=== PATIENT | female | born 1945 | race Caucasian/White ===

== ENCOUNTER 2019-05-19 10:27 | Observation (INO) ==
--- NOTE | 2019-05-14 14:02 | PAT Medication Instructions ---
Medication Instructions Date of Service May 14, 2019 Home Medications Medication Instructions Recorded oxycodone 5 mg PO Q8H PRN #10 tab 05/11/19 Medications calcium 600 mg-D3 800 unit-mag11 50 fu-lmag-icqcui-angelita-s.borat tablet 1 tab PO BID 10/23/18 [History Confirmed 05/13/19] cinnamon bark 500 mg capsule 500 mg PO BID cap 10/23/18 [History Confirmed 05/13/19] clindamycin phosphate 1 % topical swab 1 appln TOP HS ea 10/23/18 [History Confirmed 05/13/19] diclofenac sodium 1 % gel topical kit 2 gm TOP BID ea 10/23/18 [History Confirmed 05/13/19] lisinopril 20 mg-hydrochlorothiazide 25 mg tablet 1 tab PO QAM 10/23/18 [History Confirmed 05/13/19] multivitamin 1 cap PO QAM 10/23/18 [History Confirmed 05/13/19] tretinoin 0.025 % topical cream 1 appln TOP DAILY gm 10/23/18 [History Confirmed 05/13/19] omega-3 fatty acids 1,000 mg capsule 1,000 mg PO QAM 11/18/18 [History Confirmed 05/13/19] meloxicam 15 mg tablet 15 mg PO QAM 11/25/18 [History Confirmed 05/13/19] gabapentin 300 mg capsule 300 mg PO TID cap 04/09/19 [History Confirmed 05/13/19] tamoxifen 20 mg tablet 20 mg PO QAM 04/09/19 [History Confirmed 05/13/19] acetaminophen [Tylenol Arthritis Pain] 650 mg PO TID 05/11/19 [History Confirmed 05/13/19] oxycodone 5 mg PO Q8H PRN #10 tab 05/11/19 [Rx Confirmed 05/13/19] turmeric 400 mg PO QAM 05/11/19 [History Confirmed 05/13/19] Take morning of surgery With a small sip of water, OTHERWISE NOTHING TO EAT OR DRINK AFTER MIDNIGHT: Insulin Dependent Diabetic Patients * Test your blood sugar the morning of surgery * If Blood Sugar is GREATER THAN 150, take HALF of your regular dose of: * If Blood Sugar is LESS THAN 150, DO NOT TAKE ANY: Other Notes If you have any questions please call us at [phone] or [phone] or [phone] or [phone]
--- NOTE | 2019-05-14 14:06 | PAT Medication Instructions ---
Medication Instructions Date of Service May 14, 2019 Home Medications Medication Instructions Recorded oxycodone 5 mg PO Q8H PRN #10 tab 05/11/19 calcium 600 mg-D3 800 unit-mag11 50 xq-eegn-jceqhj-angelita-s.borat tablet 1 tab PO BID cinnamon bark 500 mg capsule 500 mg PO BID clindamycin phosphate 1 % topical swab 1 appln TOP HS diclofenac sodium 1 % gel topical kit 2 gm TOP BID lisinopril 20 mg-hydrochlorothiazide 25 mg tablet 1 tab PO QAM multivitamin 1 cap PO QAM tretinoin 0.025 % topical cream 1 appln TOP DAILY omega-3 fatty acids 1,000 mg capsule 1,000 mg PO QAM meloxicam 15 mg tablet 15 mg PO QAM gabapentin 300 mg capsule 300 mg PO TID tamoxifen 20 mg tablet 20 mg PO QAM acetaminophen [Tylenol Arthritis Pain] 650 mg PO TID oxycodone 5 mg PO Q8H PRN turmeric 400 mg PO QAM ASK your surgeon for instructions meloxicam 15 mg tablet 15 mg PO QAM ASK your prescriber and surgeon tamoxifen 20 mg tablet 20 mg PO QAM STOP taking 2 weeks before surgery (or as soon as possible if surgery is within 2 weeks) calcium 600 mg-D3 800 unit-mag11 50 ni-mbyl-sgakxp-angelita-s.borat tablet 1 tab PO BID cinnamon bark 500 mg capsule 500 mg PO BID omega-3 fatty acids 1,000 mg capsule 1,000 mg PO QAM STOP taking 24 hours before surgery clindamycin phosphate 1 % topical swab 1 appln TOP HS diclofenac sodium 1 % gel topical kit 2 gm TOP BID tretinoin 0.025 % topical cream 1 appln TOP DAILY DO NOT take the morning of surgery calcium 600 mg-D3 800 unit-mag11 50 aw-mojz-kfemwi-angelita-s.borat tablet 1 tab PO BID lisinopril 20 mg-hydrochlorothiazide 25 mg tablet 1 tab PO QAM multivitamin 1 cap PO QAM Take morning of surgery With a small sip of water, OTHERWISE NOTHING TO EAT OR DRINK AFTER MIDNIGHT: gabapentin 300 mg capsule 300 mg PO TID acetaminophen [Tylenol Arthritis Pain] 650 mg PO TID (okay to take up to 4 hours prior to surgery if needed) oxycodone 5 mg PO Q8H PRN (okay to take up to 4 hours prior to surgery if needed) Take evening before surgery calcium 600 mg-D3 800 unit-mag11 50 uq-dbmf-fkkkzy-angelita-s.borat tablet 1 tab PO BID gabapentin 300 mg capsule 300 mg PO TID acetaminophen [Tylenol Arthritis Pain] 650 mg PO TID oxycodone 5 mg PO Q8H PRN (if needed) Other Notes If you have any questions please call us at [phone] or [phone] or [phone] or [phone]
--- NOTE | 2019-05-14 15:32 | Anesthesiology Consultation ---
Date of Service May 14, 2019 Assessment & Plan (1) Encounter for pre-operative examination: Chart Review Chart Review: Acceptable Risk for Surgery (pending PCP clearance 05/15/19 ) and Patient seen in Pre Admission Testing Informed surgeon's office of abnormal UA. Awaiting surgeon ordered PCP clearance scheduled 05/15/19 History Surgery Operation Date: 05/19/19 12:30 Proposed Procedures p Left Total Hip Arthroplasty - Arsh Interiano MD Height/Weight Height: 5 ft Weight: 74.5 kg Allergies Allergy/AdvReac Type Severity Reaction Status Date / Time ciprofloxacin [From Cipro] Allergy Intermediate hives Verified 05/19/19 11:06 ibuprofen Allergy Intermediate rash Verified 05/19/19 11:06 Medications Home Medications Medication Instructions Recorded Confirmed Last Taken calcium 600 mg-D3 800 unit-mag11 1 tab PO BID 10/23/18 05/19/19 05/14/19 50 pp-alks-sdahgl-angelita-s.borat tablet cinnamon bark 500 mg capsule 500 mg PO BID cap 10/23/18 05/19/19 05/14/19 clindamycin phosphate 1 % topical 1 appln TOP HS PRN ea 10/23/18 05/19/19 05/10/19 swab diclofenac sodium 1 % gel topical 2 gm TOP BID ea 10/23/18 05/19/19 05/11/19 kit lisinopril 20 1 tab PO QAM 10/23/18 05/19/19 05/18/19 11:00 mg-hydrochlorothiazide 25 mg tablet multivitamin 1 cap PO QAM 10/23/18 05/19/19 05/14/19 tretinoin 0.025 % topical cream 1 appln TOP DAILY gm 10/23/18 05/19/19 05/17/19 omega-3 fatty acids 1,000 mg 1,000 mg PO QAM 11/18/18 05/19/19 05/14/19 capsule meloxicam 15 mg tablet 15 mg PO QAM 11/25/18 05/19/19 05/14/19 gabapentin 300 mg capsule 300 mg PO TID cap 04/09/19 05/19/19 05/19/19 06:00 tamoxifen 20 mg tablet 20 mg PO QAM 04/09/19 05/19/19 05/18/19 11:00 acetaminophen [Tylenol Arthritis 650 mg PO TID 05/11/19 05/19/19 05/19/19 06:00 Pain] oxycodone 5 mg PO Q8H PRN #10 tab 05/11/19 05/19/19 Unknown turmeric 400 mg PO QAM 05/11/19 05/19/19 05/14/19 aspirin [Aspirin Low Dose] 81 mg PO DAILY 05/19/19 05/19/19 05/14/19 Active Medications Generic Name Dose Route Start Last Admin Trade Name Freq PRN Reason Stop Dose Admin Acetaminophen 1,000 mg 05/19/19 06:00 05/19/19 11:33 Tylenol PO 05/19/19 18:00 Not Given PREOP KATHY Celecoxib 200 mg 05/19/19 06:00 05/19/19 11:44 Celebrex PO 05/19/19 18:00 200 mg PREOP KATHY Administration Dexamethasone 8 mg 05/19/19 06:00 05/19/19 11:36 Decadron PO 05/19/19 18:00 8 mg PREOP KATHY Administration Famotidine 20 mg 05/19/19 06:00 05/19/19 11:35 Pepcid PO 05/19/19 18:00 20 mg PREOP KATHY Administration Tranexamic Acid 1,000 mg in 100 mls @ 600 mls/hr 05/19/19 06:00 05/19/19 12:20 Tranexamic Acid / 0.7% Nacl IV 05/19/19 18:00 600 mls/hr TODAY@0600 KATHY Administration Lactated Ringer's 1,000 mls @ 15 mls/hr 05/19/19 06:00 05/19/19 11:25 Lr IV 05/19/19 18:00 15 mls/hr .Q24H KATHY Infusion Metoclopramide HCl 10 mg 05/19/19 06:00 05/19/19 11:35 Reglan PO 05/19/19 18:00 10 mg PREOP KATHY Administration Scopolamine 1.5 mg 05/19/19 06:00 05/19/19 11:35 Transderm-Scop TD 05/19/19 18:00 1.5 mg PREOP KATHY Administration Tramadol HCl 50 mg 05/19/19 06:00 05/19/19 11:36 Ultram PO 05/19/19 18:00 50 mg PREOP KATHY Administration Exercise / Class Metabolic Activity III < 4 Walking/Shop/Light housework (mild SOB with exertion - decreased a ctivity secondary to hip pain x 6 months ; no chest pain ) Past Family History Family History Mother , age 86 CVA No problems noted. Father , age 75 surgical complications prostate operation No problems noted. Son No problems noted. Past Anesthesia History No Hx of Anesthesia Complications and No Family Hx of Anesthesia Complications History of PONV No Hx of PONV and No Hx of Motion Sickness Social History Smoking Status: Former smoker tobacco type: cigarettes Smoking cigarettes per day: 1/2 pack per day x 12 years Do You Dip or Chew Tobacco: No Smoking End Date: Quit 40 years ago Hx Alcohol Use: Yes Alcohol type: wine alcohol intake frequency: 0-2 drinks per day (1-2 glasses per day ) Hx Substance Use: No substance use type: does not use Review of Systems SHANNON- chronic/stable Patient denies chest pain, shortness of breath at rest, reflux, cough, wheezing, palpitations. No hx of seizures, stroke, AR, apnea/snoring. No hx of blood clots or blood transfusions No recent steroid use Physical Exam Vital Signs Last Vital Signs Temp 36.4 C L 05/19/19 11:11 Pulse 86 05/19/19 11:11 Resp 18 05/19/19 11:11 BP 161/80 H 05/19/19 11:11 Pulse Ox 99 05/19/19 11:11 VITALS BP 137/77 P 67 TEMP 98.4 SP02 97% RESP 18 Constitutional no acute distress ENMT Mouth: no TMJ clicking, no chipped teeth and no loose teeth Thyromental Distance: < 3.5 Finger Breadths (3.0) Mallampati Class: III Crowns to molars Neck neck extension not limited Respiratory normal respiratory effort; no respiratory distress Auscultation: lungs clear to auscultation bilaterally and + diminished lung sounds (minimal throughout); no wheezes Cardiovascular Rate/Rhythm: regular rate and regular rhythm Heart Sounds: no murmur Vessels: no carotid bruit Extremities: + edema (1+ edema to LEs - R>L (chronic issue) ) Musculoskeletal Spine: + pain with cervical ROM (mild pulling ) Neurologic moves all extremities Psychiatric Orientation: alert Testing Laboratory Results 05/14/19 16:22 02/12/20 16: PT 10.6 Seconds (9.0-12.0) 05/14/19 16: INR 1.0 (0.9-1.1) 05/14/19 16: APTT 24.9 Seconds (21.0-31.0) 05/14/19 16:22 Hemoglobin A1c 5.7 % (4.5-5.6) H 05/14/19 16:22 Urine Color Dark Yellow 05/14/19 16: Urine Appearance Cloudy (Clear) A 05/14/19 16: Urine pH 5.0 (4.5-7.5) 05/14/19 16: Ur Specific [place] 1.036 (1.000-1.030) H 05/14/19 16: Urine Protein Negative (Negative) 05/14/19 16: Urine Glucose (UA) Negative (Negative) 05/14/19 16: Urine Ketones Trace (Negative) H 05/14/19 16: Urine Nitrite Negative (Negative) 05/14/19 16:22 Ur Leukocyte Esterase Negative (Negative) 05/14/19 16:22 Urine WBC (Auto) 1-5 /hpf (0-5) 05/14/19 16:22 Urine RBC (Auto) 0-4 /hpf (0-4) 05/14/19 16: U Hyaline Cast (Auto) 0 /lpf (0-5) 05/14/19 16:22 U Epithel Cells (Auto) >30 /lpf (0-5) H 05/14/19 16:22 Urine Bacteria (Auto) 1+ (Negative) H 05/14/19 16:22 Blood Type O Positive 05/14/19 16:22 Antibody Screen NEGATIVE 05/14/19 16:22 05/14/19 16:22 Urine Culture - Final Urine,Clean Catch Lactobacillus species Electrocardiogram Date: 05/14/19 Findings: + NSR @ (68) Chest X-Ray Date: 05/14/19 Findings: + NAD
--- NOTE | 2019-05-14 16:17 | History & Physical Report ---
Date of Service May 14, 2019 Assessment & Plan (1) Osteoarthritis of left hip: Plan: Patient is scheduled to undergo this procedure with Dr. Arsh Intreiano at the [facility] on Sunday May 19, 2019. Risks and complications of the procedure such as infection, bleeding, pain, scarring, nerve blood vessel damage, weakness, wound problems, stiffness, incomplete relief of symptoms, hardware failure, hardware loosening, wear, fracture, tendon or ligament injury, dislocation, leg length inequality, blood clots, embolism, heart attack, stroke, and ; fortunately the patient had a visit today by Dr. Interiano. Informed consent form the procedure was obtained. Will need to obtain preoperative clearance with the patient's primary care provider Dr. Herndon. She has her clearance appointment with him tomorrow. We will also obtain a preoperative CBC with differential, complete metabolic panel, PT/INR, hemoglobin A1c, blood type and screen, urinalysis, urine culture, nasal culture for MRSA, and an EKG. Patient states that she will obtain these tests prior to her appointment with anesthesia this afternoon. Patient has her two-week postoperative follow-up with myself on June 03, 2019 at 1:15 in the afternoon. During today's visit I discussed discharge planning with the patient and her son. I provided her with an order to obtain a walker. I instructed her to purchase a hip kit prior to the procedure. I advised her that she will be in house overnight and most likely discharged on postoperative day 1, if she does well with physical therapy and Occupational Therapy. Patient states that she most likely will be discharged home with in-home therapy. I advised her that I will provide her with prescriptions for medicines for postoperative pain control upon discharge. I also advised her that we will increase her daily aspirin to twice daily for 30 days postoperatively for DVT prophylaxis. We also discussed the use of antibiotics prior to dental procedures for the rest of her life. We discussed total hip precautions and briefly went over the packet containing information about total hip arthroplasty. Patient and her son verbalized understanding of all information provided during today's visit, thanks for the care they received, and stated if they have questions or concerns or should arise prior to Sunday's surgery date, they will contact clinic. Osteoarthritis type: unspecified Qualified Code(s): M16.12 - Unilateral primary osteoarthritis, left hip History of Present Illness Chief Complaint: Chief Complaint: Left hip pain Primary Care Provider: Arsh Silver MD PRE-OP Diagnosis: Left hip osteoarthritis Planned Procedure: Left total hip arthroplasty History of Present Illness (including history relevant to procedure): [id number] female who developed pain in her left hip back in September 2018. The pain has progressively worsened. This past Sunday, her pain shot up to the point where it was a 10/10. She went to the emergency room where x-rays were obtained as well as a CT scan. She has been followed by orthopedic surgeon at [facility] who has her on the schedule for a total hip replacement in May. She is not sure, however, that she can wait that long because of the pain and is here hoping that she might be able to have surgery done sooner. She reports the pain is in the groin and sometimes travels down the leg to her knee or her ankle. It is better when she is sitting down and worse when she is moving. She has had a hip injection as well as 2 injections into her spine, which have given her only minimal relief. She is currently on gabapentin and oxycodone to help control her pain. She denies numbness or tingling down the leg at present. Past Medical History: Osteoarthritis of left hip Preop examination LBP (low back pain) Knee pain HTN (hypertension) Spondylolisthesis Procedure History Wrist surgery, left Ectopic Tonsillectomy Right Cataract removal Allergies and Sensitivities: ibuprofen(Hives) Cipro(Hives) Social History: Patient consumes approximately 10 alcoholic beverages per week. She quit smoking 40 years ago. Patient denies any illicit drug use Current Home Meds: (Last Updated 05/13 11:33) acetaminophen(Aspir 81)citrate (calcium (as calcium citrate) 250 mg oral tablet) cinnamontopical (clindamycin 1% topical swab)topical (diclofenac 1% topical gel)(gabapentin 300 mg oral capsule)lisinopril (hydroCHLOROthiazide-lisinopril 12.5 mg-20 mg oral tablet) lisinopril PO Daily(meloxicam 15 mg oral tablet) multivitaminpolyunsaturated fatty acids (Fish Oil oral capsule)(oxyCODONE 5 mg oral tablet)(tamoxifen 20 mg oral tablet) katie Vitals: Last Updated 05/14/19 14:43 Date 05/14 14:43 Temp 36.7 Pulse 71 BP 152/70 RR 24 spO2 95 Initial Wt: 75 kg Studies of Lab Results (relevant to the procedure): Radiographic images of the pelvis show end-stage degenerative joint disease affecting the left hip joint. Patient has complete loss of the joint space throughout with question of avascular necrosis of the femoral head. Allergies Allergy/AdvReac Type Severity Reaction Status Date / Time ciprofloxacin [From Cipro] Allergy Severe hives Verified 05/13/19 16:05 ibuprofen Allergy Intermediate rash Verified 05/13/19 16:05 Home Medications Home Medications Medication Instructions Recorded Confirmed Type calcium 600 mg-D3 800 unit-mag11 1 tab PO BID 10/23/18 05/13/[address]-hkls-xzyiqt-angelita-s.borat tablet cinnamon bark 500 mg capsule 500 mg PO BID cap 10/23/18 05/13/19 History clindamycin phosphate 1 % topical 1 appln TOP HS ea 10/23/18 05/13/19 History swab diclofenac sodium 1 % gel topical 2 gm TOP BID ea 10/23/18 05/13/19 History kit lisinopril 20 1 tab PO QAM 10/23/18 05/13/19 History mg-hydrochlorothiazide 25 mg tablet multivitamin 1 cap PO QAM 10/23/18 05/13/19 History tretinoin 0.025 % topical cream 1 appln TOP DAILY gm 10/23/18 05/13/19 History omega-3 fatty acids 1,000 mg 1,000 mg PO QAM 11/18/18 05/13/19 History capsule meloxicam 15 mg tablet 15 mg PO QAM 11/25/18 05/13/19 History gabapentin 300 mg capsule 300 mg PO TID cap 04/09/19 05/13/19 History tamoxifen 20 mg tablet 20 mg PO QAM 04/09/19 05/13/19 History acetaminophen [Tylenol Arthritis 650 mg PO TID 05/11/19 05/13/19 History Pain] oxycodone 5 mg PO Q8H PRN #10 tab 05/11/19 05/13/19 Rx turmeric 400 mg PO QAM 05/11/19 05/13/19 History Past Med/Surg History Medical History Arthritis (Acute) Hyperlipidemia Hypertension (Acute) Obesity Prediabetes Primary invasive malignant neoplasm of right female breast (Acute) s/p lumpectomy- 08/2018; s/p XRT (2019)- no current issues SOB (shortness of breath) on exertion Surgical History History of right cataract surgery (Acute) Status post ectopic (Acute) Status post right breast lumpectomy (Acute) Family History Mother , age 86 CVA No problems noted. Father , age 75 surgical complications prostate operation No problems noted. Son No problems noted. Social History Preferred Language: [place] Island[place] Communication Ability: Effective Visual Impairment: No Limitations Hearing Ability: Normal Manager Salt Required: No Beliefs That Will Affect Care: None marital status: / Current Living Situation: Family current occupation: retired [employer] Other Information That Helps Us Care for You: No Feels Safe at Home: Yes Safety Concerns: Feels Safe At This Time Smoking Status: Former smoker Tobacco Type: cigarettes ; Age Started Using Tobacco: 21 ; Age Quit Using Tobacco: 33 ; packs per day: 0.5 ; Cigarettes Per Day: 1/2 pack per day x 12 years ; Do You Dip or Chew Tobacco: No ; Smoking End Date: Quit 40 years ago ; Number of Years Since Quit: 40 ; Second Hand E xposure: No ; Tobacco Cessation Education Requested by Patient: No Hx Alcohol Use: Yes Alcohol type: wine Alcohol Intake Frequency: Daily Hx Substance Use: No Childhood Exposure to Second-Hand Smoke: Yes caffeine: Yes (4 cups per day) during the past year weight has: remained stable Dental Care, Regularly: Yes Physical Activity Frequency: Other Physical Activity Frequency Comment: not doing any exercising due to hip pain Seatbelt Use: always Sunscreen Use: Yes Review of Systems All systems reviewed & are unremarkable except as noted in HPI & below Physical Exam Physical Exam: Physical Exam: (relevant to the procedure, including heart and lung evaluation) General: Patient is alert and oriented x3 with proper grooming and hygiene Eyes: Pupils are equal reactive to light and accommodating. Extraocular lids are intact bilaterally Throat: Posterior oropharynx clear with absence of edema erythema or exudate Cardiac: Regular rate and rhythm; no murmurs, or gallops appreciated Lungs: Clear breath sounds throughout; with no wheezing, rales, rhonchi Abdomen: Obese, nondistended, with normal active bowel sounds Extremities:Left hip exam reveals a flexion limited to 95 degrees, external rotation of 40 degrees and internal rotation of 10 degrees with pain on end range of motion. Distally neurovascularly intact. Patient also has pain with passive abduction and adduction. Kim test was not able to be performed. Logroll test, Stinchfield test and straight leg raise test were all positive Neuro: Cranial nerves II through XII are intact with no motor or sensory deficit Skin: Skin is normal in appearance with no open skin lesions or discharge
[2019-05-14 17:15] LABS: Basophils # (auto) 0.02 K/uL (0-0.2); Basophils % (auto) 0.3 %; Eosinophils # (auto) 0.12 K/uL (0-0.5); Eosinophils % (auto) 1.6 %; Hematocrit (blood only) 37.8 % (37-47); Hemoglobin 12.5 g/dL (12.0-16.0); Immature Granulocytes # (auto) 0.01 K/uL (0.00-0.02); Immature Granulocytes % (auto) 0.1 %; Lymphocytes # (auto) 1.35 K/uL (1.2-3.4); Lymphocytes % (auto) 18.1 %; Mean Corpuscular Hemoglobin 32.1 pg (25-34); Mean Corpuscular Hgb Conc 33.1 g/dL (32-36); Mean Corpuscular Volume 96.9 fL (80-100); Mean Platelet Volume 9.1 fL (7.4-10.4); Monocytes # (auto) 0.54 K/uL (0.11-0.59); Monocytes % (auto) 7.3 %; Neutrophils % (auto) 72.6 %; Platelet Count 306 K/uL (130-400); RDW Coefficient of Variation 13.4 % (11.5-14.5); White Blood Count 7.44 K/uL (4.8-10.8)
[2019-05-14 17:21] LABS: BUN Creatinine Ratio 25.8 (10-20); Calcium 9.2 mg/dl (8.5-10.1); Creatinine Clr Calc Pharmacy 56.6 ml/min; Est GFR (African American) 84.1; Est GFR (Non-African American) 72.6; Potassium 4.5 mmol/L (3.5-5.1)
[2019-05-14 17:22] LABS: Appearance Urine Cloudy (Clear); Bacteria Urine Automated 1+ (Negative); Blood Urine Negative (Negative); Color Urine Dark Yellow; Epithelial Cell Urine Auto >30 /lpf (0-5); Glucose Urine UA Negative (Negative); Ketones Urine Trace (Negative); Leukocyte Esterase Urine Negative (Negative); Nitrite Urine Negative (Negative); Protein Urine Negative (Negative); RBC Urine Automated 0-4 /hpf (0-4); Specific Gravity Urine 1.036 (1.000-1.030); Urobilinogen Urine Negative (Negative)
[2019-05-14 17:26] LABS: Bilirubin Urine Negative (Negative); Ictotest Urine Negative (Negative)
[2019-05-14 17:29] LABS: Partial Thromboplastin Ratio 0.9; Partial Thromboplastin Time 24.9 Seconds (21.0-31.0); Prothrombin Time 10.6 Seconds (9.0-12.0)
[2019-05-14 17:38] LABS: Cast Urine Automated 0 /lpf (0-5)
--- NOTE | 2019-05-14 17:44 | XRay Report ---
XR chest Pre-admission PA/Lat CLINICAL HISTORY: 73 years-old Female presenting with preoperative assessment. TECHNIQUE: PA and lateral views of the chest were obtained. COMPARISON: None. FINDINGS: Cardiomediastinal silhouette normal. Lungs and pleural spaces clear. Degenerative changes of the thor acic spine. Upper abdomen normal. IMPRESSION: 1. No acute cardiopulmonary disease. ACT 112: Negative or not required by law. Electronically signed by: Arsh Nayak M.D. 05/14/2019 5:43 PM
[2019-05-15 06:02] LABS: Estimated Average Glucose 117 mg/dl; Hemoglobin A1C 5.7 % (4.5-5.6)
--- NOTE | 2019-05-15 13:12 | Electrocardiogram Report ---
Test Reason : Blood Pressure : / mmHG Vent. Rate : 068 BPM Atrial Rate : 068 BPM P-R Int : 174 ms QRS Dur : 084 ms QT Int : 400 ms P-R-T Axes : 052 061 049 degrees QTc Int : 425 ms Normal sinus rhythm Normal ECG No previous ECGs available Confirmed by Zoran Barahona ([id number]) on 05/15/2019 1:12:41 PM Referred By: Arsh Interiano Confirmed By:Zoran Barahona
[~2019-05-19 10:27] MED LIST: ACETAMINOPHEN 500 MG TAB PO SCH; BUPIVACAINE 0.5 % 5 MG/1 ML PF 10ML VIAL ONE; CEFAZOLIN 2000MG 2,000 MG/15 ML SYR IV SCH; CeleBREX 200 MG CAP PO SCH; FAMOTIDINE 20 MG TAB PO SCH; LR 500ML BOLUS, THEN 15ML/HR IV SCH; LR 60ML/HR IV SCH; METOCLOPRAMIDE HCL 10 MG TABLET PO SCH; ROPIVACAINE 0.5% HCL/PF 150 MG, BUPIVACAINE 0.5% MPF 30 ML, EPINEPHrine 0.15 MG, Ketoro... INFIL SCH; SCOPOLAMINE 1.5 MG TDSY TD SCH; TRAMADOL HCL 50 MG TABLET PO SCH; TRANEXAMIC ACID 1,000 MG **IV Intra-op IV SCH; TRANEXAMIC ACID 1,000 MG **IV Pre-op IV SCH; dexAMETHasone 4 MG TAB PO SCH
[2019-05-19] MEDS ORDERED: fentaNYL citrate 100 MCG/2 ML VIAL ONE (10:42)
[2019-05-19] MEDS ORDERED: MIDAZOLAM HCL 1 MG/ML 2ML VIAL ONE (10:42)
[2019-05-19] MEDS ORDERED: ORTHO JOINT ANESTHETIC ONE (11:56)
--- NOTE | 2019-05-19 12:19 | History & Physical Bridge Note ---
Date of Service May 19, 2019 History & Physical Bridge Note I have examined the patient, reviewed the History & Physical and in the interval since the performance of the History & Physical I have noted the following changes of clinical significance: no changes noted
[2019-05-19] MEDS ORDERED: HYDROmorphone INJ 2 MG/ML SYR/VIAL IV PRN (12:24)
[2019-05-19] MEDS ORDERED: ONDANSETRON INJ 2 MG/ML 2 ML VIAL IV PRN ×2 (12:24→14:44)
[2019-05-19] MEDS ORDERED: fentaNYL citrate 100 MCG/2 ML VIAL IV PRN (12:24)
[2019-05-19] MEDS ORDERED: ePHEDrine sulfate 50 MG/ML AMP IV PRN (12:24)
[2019-05-19] MEDS ORDERED: ATROPINE SULFATE 0.1 MG/ML 10ML SYR IV PRN (12:24)
[2019-05-19] MEDS ORDERED: PROPOFOL IV EMULSION 10 MG/ML 20 ML VIAL IV ONE ×2 (12:50→13:53)
[2019-05-19] MEDS ORDERED: GLYCOPYRROLATE 0.2 MG/ML VIAL ONE (13:45)
[2019-05-19] MEDS ORDERED: OXYCODONE HCL IR 5 MG TAB (IMMEDIATE RELEASE) PO PRN (14:44)
[2019-05-19] MEDS ORDERED: NALOXONE HCL 0.4 MG/1 ML VIAL/CARP IV PRN (14:44)
[2019-05-19] MEDS ORDERED: METOCLOPRAMIDE HCL INJ 5 MG/ML 2 ML VIAL IV PRN (14:44)
[2019-05-19] MEDS ORDERED: DiphenhydrAMINE HCL 50 MG/ML VIAL IV PRN (14:44)
[2019-05-19] MEDS ORDERED: HYDROmorphone INJ 0.5 MG/0.5 ML SYR IV PRN (14:44)
[2019-05-19] MEDS ORDERED: bisacodyL 10 MG SUPP PR PRN (14:44)
[2019-05-19] MEDS ORDERED: MAGNESIUM HYDROXIDE SUSP 30 ML UDC PO PRN (14:44)
[2019-05-19] MEDS ORDERED: TRAMADOL HCL 50 MG TABLET PO PRN (14:44)
[2019-05-19] MEDS ORDERED: ALUMINUM/MAGNESIUM SUSP 30 ML UDC PO PRN (14:44)
--- NOTE | 2019-05-19 14:44 | Operative Report ---
Post Operative Report Pre & Post Diagnosis Operation Date: 05/19/19 12:30 Pre-Op Diagnosis: Left Hip Osteoarthritis Post-Op Diagnosis: Left Hip Osteoarthritis I identified the patient and participated in the time-out.: Yes Procedure Operation Date: 05/19/19 12:30 Actual Procedures p Left Total Hip Arthroplasty(Left) - Arsh Interiano MD Surgeon Arsh Interiano MD Camera Tuning Engineer Adan Story; Francesca Clay PA-C Estimated Blood Loss 100 Findings Consistent with Post-Op Diagnosis Specimens left femoral head Complications none Disposition Accompanied Patient To Recovery: Yes Disposition: Recovery Room Description of Procedure I was present during the entire procedure assisting with retraction, wound closure and dressing application. Please see Dr. Interiano procedure note for specifics of the case. I attest to the content of the Intraoperative Record and any orders documented therein. Any exceptions are noted below.
--- NOTE | 2019-05-19 14:45 | Operative Report ---
Post Operative Report Pre & Post Diagnosis Operation Date: 05/19/19 12:30 Pre-Op Diagnosis: Left Hip Osteoarthritis Post-Op Diagnosis: Left Hip Osteoarthritis I identified the patient and participated in the time-out.: Yes Procedure Operation Date: 05/19/19 12:30 Actual Procedures p Left Total Hip Arthroplasty(Left) - Arsh Interiano MD Surgeon Arsh Interiano MD Produce Team Member MD Obed Story PA-C Estimated Blood Loss 100 Findings Consistent with Post-Op Diagnosis Specimens Left femoral head Complications none Disposition Accompanied Patient To Recovery: Yes Disposition: Recovery Room Description of Procedure Lateral decubitus position, standard prep and drape, Time out Left Total Hip Arthroplasty Please see Dr Interiano's procedure notes for specific details I was present throughout the case, assisted for wound closure and transferred the patient to PACU in stable condition I attest to the content of the Intraoperative Record and any orders documented therein. Any exceptions are noted below.
[2019-05-19] MEDS ORDERED: OXYCODONE IR HOME PACK PO PRN (14:48)
--- NOTE | 2019-05-19 15:12 | Anesthesiology Progress Note ---
Date of Service May 19, 2019 Anesthesia Post Procedure Vital Signs Vital Signs: Temp Pulse Resp BP Pulse Ox 05/19/19 15:00 69 14 156/92 H 98 05/19/19 14:50 66 14 141/70 H 99 05/19/19 14:43 36.8 C 81 12 136/69 99 05/19/19 11:11 36.4 C L 86 18 161/80 H 99 Pain Intensity Left Hip: Pain Intensity: 6 Transfer of Care Handoff Completed per policy Notes Mental Status: alert / awake / arousable Patient Amnestic to Procedure: Yes Nausea / Vomiting: adequately controlled Pain: adequately controlled Airway Patency, RR, SpO2: stable & adequate BP & HR: stable & adequate Hydration State: stable & adequate Neuraxial Anesthesia: was administered and sensory block is resolving Anesthetic Complications: no major complications apparent
--- NOTE | 2019-05-19 15:44 | XRay Report ---
XR hip 1V LT w pelvis CLINICAL HISTORY: 74 years-old Female presenting with IN PACU - A/P PELVIS and LATERAL HIP . TECHNIQUE: Frontal view of the pelvis and crosstable lateral view of the left hip were obtained. COMPARISON: 05/14/2019. FINDINGS: Postsurgical changes of total left hip arthroplasty. Expected soft tissue emphysema. No malalignment. No periprosthetic fracture or lucency. Visualized portion of the bony pelvis otherwise intact. Mild superior joint space loss at the right hip is suspected. IMPRESSION: Expected postsurgical changes status post total left hip arthroplasty. ACT 112: Negative or not required by law. Electronically signed by: Arsh Nayak M.D. 05/19/2019 3:43 PM
[2019-05-19] MEDS ORDERED: COUGH DROP (SUGAR FREE) LOZ 24 LOZ/1 BOX BUCCAL ONE (17:25)
[2019-05-19] MEDS: CHECK SCOPOLAMINE PATCH PLACEMENT SCH ×2 (17:47→23:35)
[2019-05-19] MEDS: KETOROLAC TROMETHAMINE 15 MG/ML VIAL IV SCH ×2 (17:48→21:59)
[2019-05-19] MEDS: SODIUM CHLORIDE 0.9% 1000ML 1,000 ML IV SCH (17:48)
--- NOTE | 2019-05-19 19:52 | Operative Report ---
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 OPERATION PERFORMED: Left total hip arthroplasty. SURGEON: Arsh Interiano MD. ASSISTANTS: Adan Story MD and Lindsay Clay PA-C. ESTIMATED BLOOD LOSS: 100 mL. INTRAVENOUS FLUIDS: 1000 mL of crystalloid. SPECIMENS: Femoral head. COMPLICATIONS: None. IMPLANTS: 1. DePuy [place] Gription acetabular shell sector cup 48 mm outer diameter. 2. DePuy [place] cancellous bone screw 6.5 mm x 40 mm. 3. DePuy Ultrex polyethylene liner neutral for a 32 mm femoral head. 4. DePuy [place] size 3 standard offset stem. 5. DePuy Articul/Asad metal femoral head 32 mm with a +5 offset. INDICATIONS: Ms. Paredes is a 74-year-old female who started having hip pain in 09/2018. It has gradually progressed and then approximately 2 weeks ago, it became acutely worsened. She had x-rays done that demonstrated a collapse of the superior aspect of her femoral head. A CT scan was done in the Emergency Room that showed findings consistent for degenerative osteoarthritis and no suspicion for septic arthritis. She was unable to ambulate because of the pain. She presented to my office because her total hip replacement was scheduled for May and she did not think she could wait that long. I had a long discussion with her about the risks and benefits of surgery, alternatives to surgery and expected outcomes. I was able to get her in sooner for surgery, so she elected to proceed. All questions were answered. Informed consent was signed. OPERATIVE FINDINGS: The superior aspect of the femoral head was collapsed as expected from her x-ray findings. There was fragmentation of the cartilage of the femoral head that was located within the joint. However, the acetabular cartilage was much better preserved. There were no signs of infection within the hip joint with a clear fluid. A standard metal on polyethylene total hip arthroplasty was performed through a posterior approach. DESCRIPTION OF THE OPERATION: The patient was identified in the preoperative holding area where her surgical site was marked. She was given a spinal by anesthesia and brought back to main operating room. She was placed on the operating room table and moved in the lateral decubitus position. Axillary roll was placed. All bony prominences were padded. Perioperative antibiotics and tranexamic acid were administered. She was then prepped and draped in normal sterile fashion. Prior to incision, we did check her leg lengths and she was short on the operative side as expected from her x-rays by a couple of millimeters. We began by making an incision to a length of approximately 16 cm for a posterior approach to the hip. We dissected down through subcutaneous tissues to the level of fascia. The fascia was incised in line with the incision. Charnley bow was placed. The trochanteric bursa was excised. Quadratus femoris was released off the posterior aspect of the greater trochanter. Piriformis and short external rotators were dissected off the posterior hip capsule and a box cut was made in the capsule. Femoral head was then dislocated. We marked out what appeared to be her [place] center of the femoral head, which was deformed consistent with her preoperative x-rays. We then measured our distance to the lesser trochanter. It was 51 mm. We then made our femoral neck cut at 10 mm, which was our preoperative template. The femoral head was passed off for permanent section. We then exposed the acetabulum. Again, we noted a fragmentation within the hip joint from the avascular femoral head cartilage fragments. These were all removed. We then removed the contents of the cotyloid fossa. Our template was for a 48 mm cup. Therefore, we started reaming with a size 40 reamer. We reamed her all the way up to a size 48 mm cup. This gave us a good healthy bleeding bone circumferentially. I then irrigated out our acetabulum and opened up the size 48 mm [place] cup. This was then impacted down into position with 45 degrees of lateral opening and 25 degrees of anteversion. A single cancellous bone screw was placed up into the ilium. Excellent fixation was obtained. The polyethylene liner for 32 mm femoral head was then impacted down into position. We checked the locking mechanism to ensure that it had engaged, which it had. Next, the femoral neck was exposed. The lateral neck was removed with an osteotome. The intramedullary guide was used followed by the lateralizing reamer. We then reamed her up to between a size 3 and 4 [place] femoral stem. We then began broaching and broached her all the way up to a size 3 femoral stem. This gave us a good fill of the femoral neck and excellent torsional stability. We began trialing with a standard offset neck and a +1.5 head. The hip was reduced and her leg lengths were just a little bit short. Therefore, we redislocated the hip and upsized to a +5 head. Now we rechecked her leg lengths and they were appropriate. Her shuck test was 2 mm. She had no impingement with extension and external rotation. She was stable in the sleeper position. At 90 degrees of hip flexion, she could be internally rotated 60 degrees before leaving out of the cup. I was very happy with the stability exam. Therefore, the trial femoral components were removed. The femoral canal was irrigated and dried. The real size 3 [place] standard offset stem was then opened up and impacted down into position. It sat at the same level as the broach relative to the calcar. Therefore, we opened up the 32+5 femoral head. This was impacted down into the trunnion, which had been cleaned and dried. We then atraumatically reduced the hip and irrigated out the hip with copious amounts of sterile Betadine solution. The periarticular injection was then placed. The short external rotators and piriformis were closed through bone tunnels in the posterior aspect of the greater trochanter using #2 Vicryl. The fascia was run with a looped #1 PDS. The subcutaneous layer was closed with 2 layers of running #1 PDS. The deep dermal layer was closed with 2-0 Vicryl. ZipLine was used for the skin. Silverlon dressing was placed followed by a compressive dressing. The patient was then rolled supine, her sedation was lifted. She was transferred to the hospital bed. Her leg lengths were checked and she was symmetric. She was placed in an abduction pillow. She was transferred to the recovery room in stable condition. POSTOPERATIVE COURSE: The patient will be admitted to the hospital overnight for pain control and monitoring. She will be weightbearing as tolerated with posterior hip precautions. She will be on aspirin for DVT prophylaxis. I attest to the content of the Intraoperative Record and any orders documented therein. Any exception s are noted below.
[2019-05-19] MEDS ORDERED: TRANEXAMIC ACID / 0.7% NACL 1,000 MG/100 ML BAG IV SCH (20:47)
[2019-05-19] MEDS: CEFAZOLIN 2000MG 2,000 MG/15 ML SYR IV SCH (20:54)
[2019-05-19] MEDS ORDERED: NON-FORMULARY MEDICATION (Cinnamon Bark [Cinnamon] 500 MG) PO SCH (21:00)
[2019-05-19] MEDS ORDERED: ASPIRIN 81 MG ECTAB PO SCH (21:00)
[2019-05-19] MEDS: CALCIUM 600MG + VIT D 400 IU TAB PO SCH (21:04)
[2019-05-19] MEDS: DOCUSATE SODIUM 100 MG CAP PO SCH (21:04)
[2019-05-19] MEDS: ASPIRIN 81 MG ECTAB PO SCH (21:05)
[2019-05-19] MEDS: GABAPENTIN 300 MG CAP PO SCH (21:05)
[2019-05-19] MEDS: SENNA 8.6 MG TAB PO SCH (21:05)
[2019-05-19] MEDS: ACETAMINOPHEN 500 MG TAB PO SCH (21:06)
[2019-05-19] MEDS: DICLOFENAC SOD 1% GEL 100 GM TUBE EXT SCH (21:06)
[2019-05-20] MEDS: CEFAZOLIN 2000MG 2,000 MG/15 ML SYR IV SCH (04:22)
[2019-05-20] MEDS: KETOROLAC TROMETHAMINE 15 MG/ML VIAL IV SCH ×2 (04:23→10:05)
[2019-05-20] MEDS: SODIUM CHLORIDE 0.9% 1000ML 1,000 ML IV SCH (04:42)
[2019-05-20 05:09] LABS: Hematocrit (blood only) 30.7 % (37-47); Hemoglobin 10.5 g/dL (12.0-16.0); Immature Granulocytes # (auto) 0.02 K/uL (0.00-0.02); Immature Granulocytes % (auto) 0.2 %; Lymphocytes # (auto) 0.58 K/uL (1.2-3.4); Lymphocytes % (auto) 5.6 %; Mean Corpuscular Hemoglobin 32.5 pg (25-34); Mean Corpuscular Hgb Conc 34.2 g/dL (32-36); Mean Platelet Volume 8.9 fL (7.4-10.4); Monocytes # (auto) 0.86 K/uL (0.11-0.59); Monocytes % (auto) 8.3 %; Neutrophils # (auto) 8.84 K/uL (1.4-6.5); Neutrophils % (auto) 85.9 %; Platelet Count 273 K/uL (130-400); RDW Coefficient of Variation 12.8 % (11.5-14.5); RDW Standard Deviation 44.6 fL (36.4-46.3); Red Blood Count 3.23 M/uL (4.2-5.4)
[2019-05-20 05:36] LABS: BUN Creatinine Ratio 24.4 (10-20); Calcium 8.2 mg/dl (8.5-10.1); Creatinine Clr Calc Pharmacy 47.3 ml/min; Est GFR (African American) 69.8; Est GFR (Non-African American) 60.2; Potassium 4.5 mmol/L (3.5-5.1)
[2019-05-20] MEDS: ACETAMINOPHEN 500 MG TAB PO SCH ×3 (06:16→21:30)
[2019-05-20] MEDS ORDERED: dexAMETHasone 4 MG TAB PO SCH (08:00)
--- NOTE | 2019-05-20 08:11 | Anesthesiology Progress Note ---
Date of Service May 20, 2019 Anesthesia Post Procedure Vital Signs Vital Signs: Temp Pulse Pulse Resp BP Pulse Ox 05/20/19 06:58 36.5 C 82 16 119/62 97 05/20/19 04:00 36.5 C 69 16 115/61 94 05/19/19 23:34 36.4 C L 70 16 111/63 93 05/19/19 19:38 36.5 C 76 16 147/77 H 95 05/19/19 18:38 36.5 C 84 18 119/70 96 05/19/19 17:36 36.5 C 88 20 125/81 99 05/19/19 16:39 36.4 C L 71 17 121/76 100 05/19/19 16:12 36.4 C L 66 17 125/75 100 05/19/19 15:40 36.4 C L 75 18 136/76 100 05/19/19 15:20 37.0 C 77 15 140/82 97 05/19/19 15:10 37.0 C 77 15 146/66 H 99 05/19/19 15:00 69 14 156/92 H 98 05/19/19 14:50 66 14 141/70 H 99 05/19/19 14:43 36.8 C 81 12 136/69 99 05/19/19 11:11 36.4 C L 86 18 161/80 H 99 Pain Intensity Left Hip: Pain Intensity: 3 Notes Mental Status: alert / awake / arousable and participated in evaluation Patient Amnestic to Procedure: Yes Nausea / Vomiting: adequately controlled Pain: adequately controlled Airway Patency, RR, SpO2: stable & adequate BP & HR: stable & adequate Hydration State: stable & adequate Anesthetic Complications: no major complications apparent and Pt Satisfied with anesthetic care
[2019-05-20] MEDS: DOCUSATE SODIUM 100 MG CAP PO SCH ×2 (08:53→21:27)
[2019-05-20] MEDS: CALCIUM 600MG + VIT D 400 IU TAB PO SCH ×2 (08:53→21:29)
[2019-05-20] MEDS: OMEGA-3 (PURIFIED FISH OIL) 1 GM CAP PO SCH (08:54)
[2019-05-20] MEDS: ASPIRIN 81 MG ECTAB PO SCH ×3 (08:54→21:29)
[2019-05-20] MEDS: TAMOXIFEN CITRATE 10 MG TABLET PO SCH (08:54)
[2019-05-20] MEDS: MULTIVITAMIN TAB PO SCH (08:54)
[2019-05-20] MEDS: GABAPENTIN 300 MG CAP PO SCH ×3 (08:54→21:29)
[2019-05-20] MEDS: LISINOPRIL/HCTZ 20/25MG 1 TAB PO SCH (08:55)
[2019-05-20] MEDS: DICLOFENAC SOD 1% GEL 100 GM TUBE EXT SCH ×2 (08:59→21:29)
[2019-05-20] MEDS ORDERED: NON-FORMULARY MEDICATION (Turmeric 400 MG) PO SCH (09:00)
[2019-05-20] MEDS ORDERED: NON-FORMULARY MEDICATION (Multivitamin 1 CAP) PO SCH (09:00)
--- NOTE | 2019-05-20 10:43 | Orthopedic Progress Note ---
Date of Service May 20, 2019 Assessment & Plan (1) S/P total hip arthroplasty: Reviewed total hip precautions. PT/OT DVT prophylaxis with TEDs and Aspirin Pain control with PO meds Abduction pillow use for 6 wks post op Ice with EZ wrap WBAT with walker assistance Plan on discharge later today with in home PT Follow up at [facility] as scheduled in 2 wks With questions call . Admission and Anticipated Discharge Date Admission Date: May 19, 2019 Subjective This 74 yo F is day 1 s/p left total hip arthroplasty. Patient is doing very well this AM and currently sitting in her bedside chair. She states that her pain has resolved completely. She did PT/OT this AM but has not yet tried the steps. PT will have her do them prior to her discharge. Patient states that she plans on going home today with in home health services for PT. At present she denies CP, SOB, nausea, vomiting, fever, chills, sweats, lethargy or any n umbness or tingling in her left LE. Review of Systems Review of Systems: All systems reviewed & are unremarkable except as noted in HPI & below Physical Exam Physical Exam: Left Hip: Dressing clean, dry and intact. No tenderness to pal pation. Neg SLRT, log roll and [place]. NV intact. Able to actively dorsi/plantarflex foot. No pain with light passive internal/external hip rotation. Quad strength 3/5. Calf soft and supple. Results & Data ([facility]) Vital Signs (Past 12 Hours) Vital Signs Temp Pulse Resp BP Pulse Ox 05/20/19 06:58 36.5 C 82 16 119/62 97 05/20/19 04:00 36.5 C 69 16 115/61 94 05/19/19 23:34 36.4 C L 70 16 111/63 93 Laboratory Results 05/20/19 05/20/19 05/20/19 Range/Units 04:47 04:47 04:47 WBC 10.30 (4.8-10.8) K/uL RBC 3.23 L (4.2-5.4) M/uL Hgb 10.5 L (12.0-16.0) g/dL Hct 30.7 L (37-47) % MCV 95.0 (80-100) fL MCH 32.5 (25-34) pg MCHC 34.2 (32-36) g/dL RDW Std Deviation 44.6 (36.4-46.3) fL RDW Coeff of Vincent 12.8 (11.5-14.5) % Plt Count 273 (130-400) K/uL MPV 8.9 (7.4-10.4) fL Immature Gran % (Auto) 0.2 % Neut % (Auto) 85.9 % Lymph % (Auto) 5.6 % Pitt % (Auto) 8.3 % Eos % (Auto) 0.0 % Baso % (Auto) 0.0 % Immature Gran # (Auto) 0.02 (0.00-0.02) K/uL Neut # (Auto) 8.84 H (1.4-6.5) K/uL Lymph # (Auto) 0.58 L (1.2-3.4) K/uL Pitt # (Auto) 0.86 H (0.11-0.59) K/uL Eos # (Auto) 0.00 (0-0.5) K/uL Baso # (Auto) 0.00 (0-0.2) K/uL Sodium 136 (136-145) mmol/L Potassium 4.5 (3.5-5.1) mmol/L Chloride 105 (98-107) mmol/L Carbon Dioxide 26 (21-32) mmol/L Anion Gap 5.0 (3-11) BUN 23 H (7-18) mg/dl Creatinine 0.94 (0.6-1.2) mg/dl Est Cr Clr Drug Dosing 47.3 ml/min Est GFR ( Amer) 69.8 Est GFR (Non-Af Amer) 60.2 BUN/Creatinine Ratio 24.4 H (10-20) Glucose 136 H (70-99) mg/dl Calcium 8.2 L (8.5-10.1) mg/dl Hepatitis C Ab Screen Neg (Neg)
--- NOTE | 2019-05-20 10:44 | Discharge Summary ---
Date of Service May 20, 2019 Admission HPI Per Admitting Provider PRE-OP Diagnosis: Left hip osteoarthritis Planned Procedure: Left total hip arthroplasty History of Present Illness (including history relevant to procedure): [id number] female who developed pain in her left hip back in September 2018. The pain has progressively worsened. This past Sunday, her pain shot up to the point where it was a 10/10. She went to the emergency room where x-rays were obtained as well as a CT scan. She has been followed by orthopedic surgeon at [facility] who has her on the schedule for a total hip replacement in May. She is not sure, however, that she can wait that long because of the pain and is here hoping that she might be able to have surgery done sooner. She reports the pain is in the groin and sometimes travels down the leg to her knee or her ankle. It is better when she is sitting down and worse when she is moving. She has had a hip injection as well as 2 injections into her spine, which have given her only minimal relief. She is currently on gabapentin and oxycodone to help control her pain. She denies numbness or tingling down the leg at present. Past Medical History: Osteoarthritis of left hip Preop examination LBP (low back pain) Knee pain HTN (hypertension) Spondylolisthesis Procedure History Wrist surgery, left Ectopic Tonsillectomy Right Cataract removal Allergies and Sensitivities: ibuprofen(Hives) Cipro(Hives) Social History: Patient consumes approximately 10 alcoholic beverages per week. She quit smoking 40 years ago. Patient denies any illicit drug use Current Home Meds: (Last Updated 05/13 11:33) acetaminophen(Aspir 81)citrate (calcium (as calcium citrate) 250 mg oral tablet) cinnamontopical (clindamycin 1% topical swab)topical (diclofenac 1% topical gel)(gabapentin 300 mg oral capsule)lisinopril (hydroCHLOROthiazide-lisinopril 12.5 mg-20 mg oral tablet) lisinopril PO Daily(meloxicam 15 mg oral tablet) multivitaminpolyunsaturated fatty acids (Fish Oil oral capsule)(oxyCODONE 5 mg oral tablet)(tamoxifen 20 mg oral tablet) katie Vitals: Last Updated 05/14/19 14:43 Date 05/14 14:43 Temp 36.7 Pulse 71 BP 152/70 RR 24 spO2 95 Initial Wt: 75 kg Studies of Lab Results (relevant to the procedure): Radiographic images of the pelvis show end-stage degenerative joint disease affecting the left hip joint. Patient has complete loss of the joint space throughout with question of avascular necrosis of the femoral head. Admission Exam Per Admitting Provider General: Patient is alert and oriented x3 with proper grooming and hygiene Eyes: Pupils are equal reactive to light and accommodating. Extraocular lids are intact bilaterally Throat: Posterior oropharynx clear with absence of edema erythema or exudate Cardiac: Regular rate and rhythm; no murmurs, or gallops appreciated Lungs: Clear breath sounds throughout; with no wheezing, rales, rhonchi Abdomen: Obese, nondistended, with normal active bowel sounds Extremities:Left hip exam reveals a flexion limited to 95 degrees, external rotation of 40 degrees and internal rotation of 10 degrees with pain on end range of motion. Distally neurovascularly intact. Patient also has pain with passive abduction and adduction. Kim test was not able to be performed. Logroll test, Stinchfield test and straight leg raise test were all positive Neuro: Cranial nerves II through XII are intact with no motor or sensory deficit Skin: Skin is normal in appearance with no open skin lesions or discharge Principal Diagnosis Left hip osteoarthritis Discharge Exam Left Hip: Dressing clean, dry and intact. No tenderness to palpation. Neg SLRT, log roll and Stinchfield. NV intact. Able to actively dorsi/plantarflex foot. No pain with light passive internal/external hip rotation. Quad strength 3/5. Calf soft and supple. Discharge Data Allergies Allergy/AdvReac Type Severity Reaction Status Date / Time ciprofloxacin [From Cipro] Allergy Intermediate hives Verified 05/19/19 11:06 ibuprofen Allergy Intermediate rash Verified 05/19/19 11:06 Consultations 05/20/19 08:00 Consult Case Management - Discharge Planning Routine Procedures Performed Operation Date: 05/19/19 12:30 Actual Procedures p Left Total Hip Arthroplasty(Left) - Arsh Interiano MD Hospital Course (1) S/P total hip arthroplasty: Patient did very well overnight without issues. She is very pleased with the outcome of her procedure. She states that she is ready to go home later today with in home health services. Reviewed total hip precautions. PT/OT DVT prophylaxis with TEDs and Aspirin Pain control with PO meds Abduction pillow use for 6 wks post op Ice with EZ wrap WBAT with walker assistance Plan on discharge later today with in home PT Follow up at [facility] as scheduled in 2 wks With questions call . Total Time Total Time Spent Total Time Spent (In Minutes): 20 mins Total Time Includes: Examination of the Patient, Discharge Planning, Medication Reconciliation and Communication With Other Providers Discharge Plan Discharge Items Patient Disposition: Home - Home Health Services Reason For Visit: Left Hip Osteoarthritis Discharge Diagnosis: Left Hip Osteoarthritis Activity: As commented below Lifting: None Bathing: Keep incision dry Bathing Comment: may shower tomorrow Sexual Activity: Wait until after follow-up appointment Exercise/Sports: Wait until after follow-up appointment Driving/Machine Use: No driving 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 Weightbearing: Left weightbearing Weightbearing Comment: as tolerated with walker assistance Non-emergency contact: Primary Care Provider Call non-emergency contact if: you have any medication questions, your pain is not controlled, your temperature is above 101.5, your wound has increased drainage and your wound pain has increased Follow-up/Referrals: Arsh Silver MD [Primary Care Provider] - Diet: Regular Addtl Attending Provider Instructions: Post-operative Instructions Dear Patient and Family/Friends, Before you are discharged from the hospital, it is important to know what to expect when you get home after surgery. To that end, we have created this sheet of discharge instructions which covers many commonly asked questions. Make sure you go through this sheet in its entirety with your nurse before you are discharged. Please note that we will go over the specifics of your surgery and recovery when you return for your first post-operative visit. Sincerely, Dr. Interiano Medications 1. Aspirin 81 mg: take one tablet twice daily for 30 days post operatively to prevent blood clots. 2. Oxycodone 5mg: take 1-2 tablets every 4-6 hours as needed for pain. A prescription for 30 tablets will be sent to your pharmacy. 3. Diclofenac Sodium 75 mg: take 1 tablet twice daily for 30 days post operatively for relief of pain and inflammation. A prescription for 60 tablets will be sent to you pharmacy with 1 refill. (Do not take Meloxicam while you are taking this medication). 4. Extra Strength Tylenol 500 mg: take 2 tablets every 6-8 hours as needed for pain relief for 30 days post operatively. Please purchase this medication over the counter. Pain Expect to be in a fair amount of pain after surgery. Remember, our goal is not to eliminate your pain, but to make it tolerable. It is a good idea to stay ahead of your pain by taking the medications you were prescribed once you get home. Typically, the pain starts improving 3-7 days after surgery. You should start weaning off the narcotic pain medication (oxycodone, hydrocodone, hydromorphone, morphine) as soon as your pain improves. Please call our office if your pain is not adequately controlled. Ice Ice your operative site at least 5 times a day for 15-30 minutes at a time. Make sure you have a thin cloth between the ice or cooling unit and your skin to prevent henning bite. This is especially important if you received a nerve block. Continue icing your operative site for the first 5-7 days after surgery, then as needed. Diet/Nausea/Vomiting Start by drinking clear liquids and eating crackers. If you can tolerate this, then you may resume your normal diet. If you feel nauseated or vomit, take Zofran/ondansetron (if prescribed). Please call our office if you have intractable nausea or vomiting, or, if after hours, you may go to the Emergency Room for help. Constipation Constipation is a common side effect of narcotic pain medication. If you have not had a bowel movement within 2 days after surgery, we recommend purchasing an over the counter laxative such as Milk of Magnesia, Dulcolax, or Miralax from a local pharmacy, and taking it as instructed. Call our clinic if any questions. Nerve block The anesthesia team sometimes places a nerve block to help with post-operative pain control. This results in significant numbness and inability to move the extremity. The nerve block usually wears off in 8-12 hours, but sometimes can last up to 24 hours. Please call our office if you are still unable to move you r extremity after 24 hours, unless you received a pain pump to take home. Nerve blocks typically wear off quickly, so start taking pain medication as soon as you start feeling soreness near your surgical site. Weight bearing and Range of Motion. Do not bear any weight through your operative extremity immediately after surgery. If you had upper extremity surgery, do not lift anything with that arm. If you are in a knee brace, keep it locked in place until your follow-up. We will discuss your weight bearing, range of motion, and lifting restrictions in detail at your first post-operative appointment. Continuous Passive Motion (CPM) Machine If you were prescribed a CPM machine, it will start after your first post- operative appointment, at which time we will give you instructions on the range of motion settings and duration of treatment Physical therapy You will be given a prescription for physical therapy or occupational therapy at your first post-operative appointment. Typically, patients start therapy within 1 week of surgery Wound care and showering We will inspect your wound at your first post-operative visit, and may do a dressing change at that time. Most patients will be in a water-proof dressing that is removed 14 days after surgery. It is normal to see some dried blood on the dressing. Do not remove your dressing, paper strips or sutures yourself unless you are given permission. Showering is allowed the day after surgery. Do not scrub or remove any dressings. The wound should not be submerged underwater (i.e. in a bathtub or pool) until 4 weeks after surgery LOW stockings If you were given white stockings, these are to be worn at all times except to s hower (on both legs) for the first 2 weeks after surgery. Driving You may not drive while taking narcotic pain medication or while in a cast, splint, sling or brace. You, the patient, need to make the final determination about when you are safe to drive, however, the earliest you may consider driving after surgery is below: Hand/Wrist/Elbow Surgery: 3 days Shoulder Surgery: 2 weeks Hip,/Knee/Ankle Surgery: 4 weeks Fracture repair: 6 weeks Return to Work Your return to work depends on what surgery was done and what type of work you do. Please bring any paperwork your employer needs completed to your first post-operative visit. Also, bring a description of your job duties, as this helps us to understand what risks you may face at work. Travel Avoid long distance travel (greater than 1 hour) in airplanes and cars for the first 6 weeks after surgery. If you must travel, you need to have a Doppler ultrasound done before you travel to rule out a blood clot in your legs. Follow-up You should have a follow-up appointment already scheduled 1-2 days after surgery. If not, please contact our office to make this appointment before you leave the hospital. When to call the office It is normal to have swelling and bruising in the limb that was operated on. This will improve with time. It is also normal to have fevers for the first 2 days after surgery. Reasons you should call your doctor include: Uncontrolled pain; Nausea, vomiting, or constipation that does not improve with medication; Fevers over 101.5, chills, sweats; Drainage or bleeding from the wound; Foul odor; Spreading areas of redness; Any other concerns Pending Studies at Discharge: No Stand-Alone Forms: My [facility], Opioid Pain Management Medications and DC Order Prescriptions: New oxycodone 5 mg tablet See Rx Instructions .ROUTE .COMPLEX Qty: 30 RF: 0 diclofenac sodium 75 mg tablet,delayed release (DR/EC) 75 mg PO BID 30 Days Qty: 60 RF: 1 Continued lisinopril-hydrochlorothiazide 20-25 mg tablet 1 tab PO QAM RF: 0 diclofenac sodium 1 % kit 2 gm TOP BID RF: 0 tretinoin [Retin-A] 0.025 % cream 1 appln TOP DAILY RF: 0 clindamycin phosphate 1 % swab 1 appln TOP HS PRN (Reason: Rash) RF: 0 Caltrate 600-D Plus Minerals 600 mg calcium- 800 unit-50 mg tablet 1 tab PO BID RF: 0 cinnamon bark [Cinnamon] 500 mg capsule 500 mg PO BID RF: 0 multivitamin capsule 1 cap PO QAM RF: 0 omega-3 fatty acids [Fish Oil Concentrate] 1,000 mg capsule 1,000 mg PO QAM RF: 0 gabapentin 300 mg capsule 300 mg PO TID RF: 0 tamoxifen 20 mg tablet 20 mg PO QAM RF: 0 turmeric 400 mg Capsule 400 mg PO QAM RF: 0 oxycodone 5 mg tablet 5 mg PO Q8H PRN (Reason: pain) Qty: 10 RF: 0 Changed aspirin [Aspirin Low Dose] 81 mg Tablet,Delayed Release (Dr/Ec) 81 mg PO BID Qty: 0 RF: 0 Discontinued meloxicam 15 mg tablet 15 mg PO QAM RF: 0 acetaminophen [Tylenol Arthritis Pain] 650 mg Tablet Extended Release 650 mg PO TID RF: 0 Discharge Orders: Discharge Order (Routine); Ordered 05/20/19 Ordered By: Pal Tan/Other Patient Handouts: Surgery Prevent DVT After, Hip Safety Sleep Position, Hip Replace After Hospital, Hip Replace Home Safety Admission Data Admit Date/Time: 05/19/19 14:44 Attending Provider: Arsh Interiano Admit Provider: Arsh Interiano Primary Care Provider: Arsh Silver Other Providers: [facility],Home Healthcare Other Interventions: Discharge Summary Assessment (RN) Last Done: 05/20/19 10:36
[2019-05-20] MEDS: SENNA 8.6 MG TAB PO SCH (21:29)
[2019-05-21 06:17] VITALS: BP 136/62; TEMP 97.9; O2SAT 96
[2019-05-21] MEDS: ACETAMINOPHEN 500 MG TAB PO SCH ×2 (06:33→13:27)
[2019-05-21] MEDS: OMEGA-3 (PURIFIED FISH OIL) 1 GM CAP PO SCH (07:35)
[2019-05-21] MEDS: TAMOXIFEN CITRATE 10 MG TABLET PO SCH (07:35)
[2019-05-21] MEDS: ASPIRIN 81 MG ECTAB PO SCH (07:36)
[2019-05-21] MEDS: MULTIVITAMIN TAB PO SCH (07:36)
[2019-05-21] MEDS: GABAPENTIN 300 MG CAP PO SCH ×2 (07:36→13:27)
[2019-05-21] MEDS: LISINOPRIL/HCTZ 20/25MG 1 TAB PO SCH (07:36)
[2019-05-21] MEDS: DOCUSATE SODIUM 100 MG CAP PO SCH (07:37)
[2019-05-21] MEDS: CALCIUM 600MG + VIT D 400 IU TAB PO SCH (07:37)
[2019-05-21] MEDS: DICLOFENAC SOD 1% GEL 100 GM TUBE EXT SCH (07:38)
--- NOTE | 2019-05-21 13:34 | Orthopedic Progress Note ---
Date of Service May 21, 2019 Assessment & Plan (1) S/P total hip arthroplasty: Patient stayed an extra night and felt that it was very beneficial. Patient did very well overnight without issues. She is very pleased with the outcome of her procedure. She states that she is ready to go home today with in home health services. Reviewed total hip precautions. PT/OT DVT prophylaxis with TEDs and Aspirin Pain control with PO meds Abduction pillow use for 6 wks post op Ice with EZ wrap WBAT with walker assistance Plan on discharge later today with in home PT Follow up at [facility] as scheduled in 2 wks With questions call . Admission and Anticipated Discharge Date Admission Date: May 19, 2019 Subjective This 74 yo F is day 12 s/p left total hip arthroplasty. Patient stayed an extra night due to slight confusion and having difficulty doing steps with PT. Patient is doing very well this AM and currently sitting completely dressed in her bedside chair. She states that her pain has resolved completely. She did PT/OT this AM and did much better than yesterday. Patient states that she plans on going home [place]AC[place] with in home health services for PT. At present she denies CP, SOB, nausea, vomiting, fever, chills, sweats, lethargy or any numbness or tingling in her left LE. Review of Systems Review of Systems: All systems reviewed & are unremarkable except as noted in HPI & below Physical Exam Physical Exam: Left Hip: Dressing clean, dry and intact. No tenderness to palpation. Neg SLRT, log roll and Stinchfield. NV intact. Able to actively dorsi/plantarflex foot. No pain with light passive internal/external hip rotation. Quad strength 3/5. Calf soft and supple. Easily stood up from chair, transitioning to a walker and ambulated around room and into mendez without difficulty. Results & Data ([facility]) Vital Signs (Past 12 Hours) Vital Signs Temp Pulse Resp BP Pulse Ox 05/21/19 06:16 36.6 C 75 16 136/62 96
[2019-05-21 13:46] VITALS: PULSE 77
== END 2019-05-21 14:12 | disposition home health service (06) | DRG 470 ==
LOC: ASU 10:27 → 3E 14:44 → INTOOBSV 14:44

== ENCOUNTER 2019-10-02 10:33 | Observation (INO) ==
--- NOTE | 2019-09-10 09:27 | PAT Medication Instructions ---
Medication Instructions Date of Service September 10, 2019 Home Medications calcium 600 mg-D3 800 unit 50 mg tablet 1 tab PO BID cinnamon bark 500 mg capsule 500 mg PO BID clindamycin phosphate 1 % topical swab 1 appln TOP HS PRN diclofenac sodium 1 % gel topical kit 2 gm TOP BID lisinopril 20 mg-hydrochlorothiazide 25 mg tablet 1 tab PO QAM multivitamin 1 cap PO QAM tretinoin 0.025 % topical cream 1 appln TOP DAILY omega-3 fatty acids 1,000 mg capsule 2,000 mg PO QAM gabapentin 300 mg capsule 300 mg PO TID tamoxifen 20 mg tablet 20 mg PO QAM turmeric 400 mg PO QAM acetaminophen [Tylenol 8 Hour] 650 mg PO TID PRN aspirin [Aspirin Low Dose] 81 mg PO QAM STOP taking 2 weeks before surgery cinnamon bark 500 mg capsule 500 mg PO BID omega-3 fatty acids 1,000 mg capsule 2,000 mg PO QAM turmeric 400 mg PO QAM STOP taking 24 hours before surgery clindamycin phosphate 1 % topical swab 1 appln TOP HS PRN diclofenac sodium 1 % gel topical kit 2 gm TOP BID tretinoin 0.025 % topical cream 1 appln TOP DAILY DO NOT take the morning of surgery calcium 600 mg-D3 800 unit 50 mg tablet 1 tab PO BID lisinopril 20 mg-hydrochlorothiazide 25 mg tablet 1 tab PO QAM multivitamin 1 cap PO QAM Take morning of surgery With a small sip of water, OTHERWISE NOTHING TO EAT OR DRINK AFTER MIDNIGHT: gabapentin 300 mg capsule 300 mg PO TID tamoxifen 20 mg tablet 20 mg PO QAM acetaminophen [Tylenol 8 Hour] 650 mg PO TID PRN (if needed, may be taken up to four hours before surgery) aspirin [Aspirin Low Dose] 81 mg PO QAM Other Notes If you have any questions please call us at [phone] or [phone] or [phone] or [phone]
--- NOTE | 2019-09-10 10:44 | Anesthesiology Consultation ---
Date of Service September 10, 2019 Assessment & Plan (1) Encounter for pre-operative examination: COVID Status: As of 09/09 PAT assessment, patient denies travel to endemic area, known exposure/sick contacts, or symptoms of COVID19. Preoperative COVID19 testing to be completed prior to surgery. S/P EDVIN 05/2019 @ [facility] -- SAB x 1, no issues noted on anesthesia record, but discharge summary notes that patient had some confusion post-op, enough that she was kept for an additional night to work with PT to ensure she fully grasped the total hip precautions. Chart Review Chart Review: Acceptable Risk for Surgery Teaching & Discussion Instructed NPO after midnight before surgery, except medications with 15 cc of water. Medication instructions provided according to the PAT guidelines. History Surgery Operation Date: 10/02/19 12:35 Proposed Procedures p Right Total Hip Arthroplasty - Arsh Interiano MD Height/Weight Height: 5 ft 1 in Weight: 70.9 kg Allergies Allergy/AdvReac Type Severity Reaction Status Date / Time ciprofloxacin [From Cipro] Allergy Intermediate hives Verified 09/09/19 16:18 ibuprofen Allergy Intermediate rash Verified 09/09/19 16:18 Medications Home Medications Medication Instructions Recorded Confirmed Last Taken calcium 600 mg-D3 800 unit-mag11 1 tab PO BID 10/23/18 09/09/19 05/14/19 50 mu-jtha-rhzkav-angelita-s.borat tablet cinnamon bark 500 mg capsule 500 mg PO BID cap 10/23/18 09/09/19 05/14/19 clindamycin phosphate 1 % topical 1 appln TOP HS PRN ea 10/23/18 09/09/19 05/10/19 swab diclofenac sodium 1 % gel topical 2 gm TOP BID ea 10/23/18 09/09/19 05/11/19 kit lisinopril 20 1 tab PO QAM 10/23/18 09/09/19 05/18/19 11:00 mg-hydrochlorothiazide 25 mg tablet multivitamin 1 cap PO QAM 10/23/18 09/09/19 05/14/19 tretinoin 0.025 % topical cream 1 appln TOP DAILY gm 10/23/18 09/09/19 05/17/19 omega-3 fatty acids 1,000 mg 2,000 mg PO QAM 11/18/18 09/09/19 05/14/19 capsule gabapentin 300 mg capsule 300 mg PO TID cap 04/09/19 09/09/19 05/19/19 06:00 tamoxifen 20 mg tablet 20 mg PO QAM 04/09/19 09/09/19 05/18/19 11:00 turmeric 400 mg PO QAM 05/11/19 09/09/19 05/14/19 acetaminophen [Tylenol 8 Hour] 650 mg PO TID PRN 09/09/19 09/09/19 Unknown aspirin [Aspirin Low Dose] 81 mg PO QAM 09/09/19 09/09/19 Unknown Past Medical History Medical History Arthritis Hyperlipidemia Hypertension Obesity Prediabetes Primary invasive malignant neoplasm of right female breast s/p lumpectomy- 08/2018; s/p XRT (2018)- no current issues SOB (shortness of breath) on exertion Exercise / Class Metabolic Activity III < 4 Walking/Shop/Light housework (Using cane for ambulation currently due to hip pain; denies SOB or CP with ambulation, +SOB with 1 FOS) Past Family History Family History Mother , age 86 CVA No problems noted. Father , age 75 surgical complications prostate operation No problems noted. Son No problems noted. Other No family history of adverse response to anesthesia Past Surgical History Surgical History History of colonoscopy History of right cataract surgery History of tonsillectomy History of total hip arthroplasty left hip replacement (05/2019) S/P epidural steroid injection Status post ectopic Status post right breast lumpectomy "partial mastectomy" Past Anesthesia History No Hx of Anesthesia Complications and No Family Hx of Anesthesia Complications History of PONV No Hx of PONV and No Hx of Motion Sickness Social History Smoking Status: Former smoker tobacco type: cigarettes Smoking cigarettes per day: 1/2 pack per day x 12 years Do You Dip or Chew Tobacco: No Smoking End Date: 1979 Hx Alcohol Use: Yes Alcohol type: wine alcohol intake frequency: holidays/special occasions only Hx Substance Use: No substance use type: does not use Review of Systems Pt denies any recent chest pain, shortness of breath, palpitations, cough, fever or URI. Physical Exam Vital Signs BP: 126/74 P: 73bpm SPO2: 98% RA T: 98.6 F R: 16 ENMT Mouth: no dental restorations, no chipped teeth and no loose teeth Thyromental Distance: > or= 3.5 Finger Breadths (3.5) Mallampati Class: III Neck normal visual inspection; neck extension not limited Respiratory normal respiratory effort Auscultation: lungs clear to auscultation bilaterally Cardiovascular Rate/Rhythm: regular rate and regular rhythm Vessels: no carotid bruit Extremities: no edema Testing Laboratory Results 09/10/19 11:42 09/10/19 11:42 PT 10.6 Seconds (9.0-12.0) 09/10/19 11:42 INR 1.0 (0.9-1.1) 09/10/19 11:42 APTT 25.4 Seconds (21.0-31.0) 09/10/19 11:42 Hemoglobin A1c 6.2 % (4.5-5.6) H 09/10/19 11:42 Urine Color Yellow 09/10/19 11:42 Urine Appearance Clear (Clear) 09/10/19 11:42 Urine pH 7.0 (4.5-7.5) 09/10/19 11:42 Ur Specific [place] 1.012 (1.000-1.030) 09/10/19 11:42 Urine Protein Negative (Negative) 09/10/19 11:42 Urine Glucose (UA) Negative (Negative) 09/10/19 11:42 Urine Ketones Negative (Negative) 09/10/19 11:42 Urine Nitrite Negative (Negative) 09/10/19 11:42 Ur Leukocyte Esterase Negative (Negative) 09/10/19 11:42 Blood Type O Positive 09/10/19 11:42 Antibody Screen NEGATIVE 09/10/19 11:42 Electrocardiogram Date: 05/14/19 Findings: + NSR @ (68bpm) Chest X-Ray Date: 05/14/19 Findings: + NAD
--- NOTE | 2019-09-10 12:00 | History & Physical Report ---
Date of Service September 10, 2019 Assessment & Plan (1) Osteoarthritis of right hip: Plan: Patient is scheduled to undergo this procedure with Dr. Arsh Interiano at the [facility] on October 02, 2019. Risks and complications of the procedure such as: infection, bleeding, pain, scarring, nerve blood vessel damage, weakness, wound problems, stiffness, incomplete relief of symptoms, hardware failure, hardware loosening, wear, fracture, tendon or ligament injury, dislocation, leg length inequality, blood clots, embolism, heart attack, stroke, and ; were explained by Dr. Interiano at her visit today. Informed consent form the procedure was obtained. Patient understands the risks of proceeding with surgery during the COVID-19 pandemic. Currently she is asymptomatic. Patient will be tested for COVID-19 prior to the procedure. We have preoperative clearance with the patient's primary care provider Dr. Silver but will fax a clearance form for updated consent. We will also obtain a preoperative CBC with differential, complete metabolic panel, PT/INR, hemoglobin A1c, blood type and screen, urinalysis, urine culture, nasal culture for MRSA, and an EKG. Patient states that she will obtain these tests prior to her appointment with anesthesia this afternoon. Patient has her two- week postoperative follow-up with myself on October 14 @ 10:15. During today's visit I discussed discharge planning with the patient. She has a walker from her previous hip surgery. She also has a hip kit from her previous procedure. I advised her that she will be in house overnight and most likely discharged on postoperative day 1, if she does well with physical therapy and Occupational Therapy. Patient states that she most likely will be discharged home with in- home therapy. I advised her that I will provide her with prescriptions for medicines for postoperative pain control upon discharge. I also advised her that we will increase her daily aspirin to twice daily for 30 days postoperatively for DVT prophylaxis. We also discussed the use of antibiotics prior to dental procedures for the rest of her life. We discussed total hip precautions and briefly went over the packet containing information about total hip arthroplasty. Patient verbalized understanding of all information provided during today's visit, thanks for the care they received, and stated if she has questions or concerns or should arise prior to Sunday's surgery date, they will contact clinic. History of Present Illness Chief Complaint: Right Hip Osteoarthritis Primary Care Provider: Arsh Silver MD PRE-OP Diagnosis: Right Hip Osteoarthritis Planned Procedure: Right Total Hip Arthroplasty Chief Complaint: Right Hip Pain History of Present Illness (including history relevant to procedure): This 74-year-old female presents to the clinic today for preoperative history and physical examination. Patient states that her right hip is both been bothering her since mid May. She underwent a left total hip arthroplasty this past May and states that her left hip feels great. She states that the right hip is causing her to have pain with transitioning from a seated to a standing position, walking, and doing things around her home. She elects to undergo a right total hip arthroplasty to help improve these issues. She states that she has been using tramadol intermittently for breakthrough pain but wishes to discontinue it prior to the procedure. Past Medical History: Problems: Osteoarthritis of right hip Status post total replacement of left hip Osteoarthritis of left hip Preop examination LBP (low back pain) Knee pain HTN (hypertension) Spondylolisthesis Procedure History Procedure Procedure Date Comments Wrist surgery, left 1998 Ectopic 1980 Tonsillectomy 1970 Left Total Hip Arthroplasty 2019 Allergies and Sensitivities: ibuprofen(Hives) Cipro(Hives) Current Home Meds: (Last Updated 06/30 14:27) acetaminophen(Aspir 81)citrate (calcium (as calcium citrate) 250 mg oral tablet) cinnamontopical (clindamycin 1% topical swab)topical (diclofenac 1% topical gel)(gabapentin 300 mg oral capsule)lisinopril (hydroCHLOROthiazide-lisinopril 12.5 mg-20 mg oral tablet) lisinopril PO Daily multivitaminpolyunsaturated fatty acids (Fish Oil oral capsule)(tamoxifen 20 mg oral tablet)(traMADol 50 mg oral tablet) 50 mg PO q6h not to exceed 400 mg/day turmeric Allergies Allergy/AdvReac Type Severity Reaction Status Date / Time ciprofloxacin [From Cipro] Allergy Intermediate hives Verified 09/09/19 16:18 ibuprofen Allergy Intermediate rash Verified 09/09/19 16:18 Home Medications Home Medications Medication Instructions Recorded Confirmed Type calcium 600 mg-D3 800 unit-mag11 1 tab PO BID 10/23/18 09/09/19 History 50 sr-weel-irjixd-angelita-s.borat tablet cinnamon bark 500 mg capsule 500 mg PO BID cap 10/23/18 09/09/19 History clindamycin phosphate 1 % topical 1 appln TOP HS PRN ea 10/23/18 09/09/19 History swab diclofenac sodium 1 % gel topical 2 gm TOP BID ea 10/23/18 09/09/19 History kit lisinopril 20 1 tab PO QAM 10/23/18 09/09/19 History mg-hydrochlorothiazide 25 mg tablet multivitamin 1 cap PO QAM 10/23/18 09/09/19 History tretinoin 0.025 % topical cream 1 appln TOP DAILY gm 10/23/18 09/09/19 History omega-3 fatty acids 1,000 mg 2,000 mg PO QAM 11/18/18 09/09/19 History capsule gabapentin 300 mg capsule 300 mg PO TID cap 04/09/19 09/09/19 History tamoxifen 20 mg tablet 20 mg PO QAM 04/09/19 09/09/19 History turmeric 400 mg PO QAM 05/11/19 09/09/19 History acetaminophen [Tylenol 8 Hour] 650 mg PO TID PRN 09/09/19 09/09/19 History aspirin [Aspirin Low Dose] 81 mg PO QAM 09/09/19 09/09/19 History Past Med/Surg History Medical History Arthritis Hyperlipidemia Hypertension Obesity Prediabetes Primary invasive malignant neoplasm of right female breast s/p lumpectomy- 08/2018; s/p XRT (2018)- no current issues SOB (shortness of breath) on exertion Surgical History History of colonoscopy History of right cataract surgery History of tonsillectomy History of total hip arthroplasty left hip replacement (05/2019) S/P epidural steroid injection Status post ectopic Status post right breast lumpectomy "partial mastectomy" Family History Mother , age 86 CVA No problems noted. Father , age 75 surgical complications prostate operation No problems noted. Son No problems noted. Other No family history of adverse response to anesthesia Social History Preferred Language: Thai Communication Ability: Effective Visual Impairment: No Limitations Hearing Ability: Normal Manager Music Required: No Beliefs That Will Affect Care: None marital status: / Current Living Situation: Family Current Living Situation Comment: lives with sonTalon current occupation: retired [employer] Other Information That Helps Us Care for You: No Feels Safe at Home: Yes Smoking Status: Former smoker Tobacco Type: cigarettes ; Age Started Using Tobacco: 21 ; Age Quit Using Tobacco: 33 ; packs per day: 0.5 ; Cigarettes Per Day: 1/2 pack per day x 12 years ; Do You Dip or Chew Tobacco: No ; Smoking End Date: 1979 ; Number of Years Since Quit: 40 ; Second Hand Exposure: Yes (hx) ; Tobacco Cessation Education Requested by Patient: No Hx Alcohol Use: Yes Alcohol type: wine Alcohol Intake Frequency: Daily Hx Substance Use: No Childhood Exposure to Second-Hand Smoke: Yes caffeine: Yes (4 cups per day) during the past year weight has: remained stable Dental Care, Regularly: Yes Physical Activity Frequency: Other Physical Activity Frequency Comment: not doing any exercising due to hip pain Seatbelt Use: always Sunscreen Use: Yes Review of Systems All systems reviewed & are unremarkable except as noted in HPI & below Physical Exam Physical Exam: Physical Exam: (relevant to the procedure, including heart and lung evaluation) General: Patient is alert and oriented x3 with proper grooming and hygiene Eyes: Pupils are equal reactive to light and accommodating. Extraocular lids are intact bilaterally Throat: Posterior oropharynx clear with absence of edema erythema or exudate Cardiac: Regular rate and rhythm; no murmurs, or gallops appreciated Lungs: Clear breath sounds throughout; with no wheezing, rales, rhonchi Abdomen: Obese, nondistended, with normal active bowel sounds Extremities:Right hip exam reveals a flexion limited to 100 degrees, external rotation of 45 degrees and internal rotation of 10 degrees with pain on end range of motion. Distally neurovascularly intact. Patient also has pain with passive abduction and adduction. Kim test was Positive. Logroll test, Stinchfield test and straight leg raise test were all positive Neuro: Cranial nerves II through XII are intact with no motor or sensory deficit Skin: Skin is normal in appearance with no open skin lesions or discharge Results & Data Diagnostic Findings Studies (relevant to the procedure): X-rays of the right hip is incidentally noted to have significant arthritis that is near [id number]. Comparing it with her previous film back in May, there is perhaps slightly narrowed joint space, but not a big difference.
[2019-09-10 13:06] LABS: Basophils # (auto) 0.03 K/uL (0-0.2); Basophils % (auto) 0.4 %; Eosinophils # (auto) 0.14 K/uL (0-0.5); Eosinophils % (auto) 1.9 %; Hematocrit (blood only) 37.9 % (37-47); Hemoglobin 12.5 g/dL (12.0-16.0); Immature Granulocytes # (auto) 0.02 K/uL (0.00-0.02); Immature Granulocytes % (auto) 0.3 %; Lymphocytes # (auto) 1.36 K/uL (1.2-3.4); Lymphocytes % (auto) 18.5 %; Mean Corpuscular Hemoglobin 30.1 pg (25-34); Mean Corpuscular Volume 91.3 fL (80-100); Monocytes # (auto) 0.34 K/uL (0.11-0.59); Monocytes % (auto) 4.6 %; Neutrophils # (auto) 5.46 K/uL (1.4-6.5); Neutrophils % (auto) 74.3 %; Platelet Count 341 K/uL (130-400); RDW Coefficient of Variation 13.6 % (11.5-14.5); RDW Standard Deviation 45.7 fL (36.4-46.3); Red Blood Count 4.15 M/uL (4.2-5.4); White Blood Count 7.35 K/uL (4.8-10.8)
[2019-09-10 13:11] LABS: Appearance Urine Clear (Clear); Bilirubin Urine Negative (Negative); Blood Urine Negative (Negative); Color Urine Yellow; Glucose Urine UA Negative (Negative); Ketones Urine Negative (Negative); Leukocyte Esterase Urine Negative (Negative); Nitrite Urine Negative (Negative); Protein Urine Negative (Negative); Specific Gravity Urine 1.012 (1.000-1.030); Urobilinogen Urine Negative (Negative)
[2019-09-10 13:19] LABS: Partial Thromboplastin Ratio 0.9; Partial Thromboplastin Time 25.4 Seconds (21.0-31.0); Prothrombin Time 10.6 Seconds (9.0-12.0)
[2019-09-10 13:21] LABS: Albumin Level 3.7 gm/dl (3.4-5.0); BUN Creatinine Ratio 29.6 (10-20); Calcium 9.8 mg/dl (8.5-10.1); Creatinine Clr Calc Pharmacy 60.2 ml/min; Est GFR (African American) 91.7; Est GFR (Non-African American) 79.1; Potassium 4.5 mmol/L (3.5-5.1)
[2019-09-10 13:24] LABS: Albumin Globulin Ratio 1.1 (0.9-2); Bilirubin,Total 0.3 mg/dl (0.2-1); Globulin 3.3 gm/dl (2.5-4.0)
[2019-09-10 14:11] LABS: Estimated Average Glucose 131 mg/dl; Hemoglobin A1C 6.2 % (4.5-5.6)
[~2019-10-02 10:33] MED LIST changes: -CeleBREX 200 MG CAP PO SCH
[2019-10-02] MEDS ORDERED: MIDAZOLAM HCL 1 MG/ML 2ML VIAL ONE ×2 (10:34)
[2019-10-02] MEDS ORDERED: fentaNYL citrate 100 MCG/2 ML VIAL ONE (10:34)
[2019-10-02] MEDS ORDERED: ePHEDrine sulfate 50 MG/ML AMP IV PRN (12:06)
[2019-10-02] MEDS ORDERED: fentaNYL citrate 100 MCG/2 ML VIAL IV PRN (12:06)
[2019-10-02] MEDS ORDERED: ONDANSETRON INJ 2 MG/ML 2 ML VIAL IV PRN ×2 (12:06→14:18)
[2019-10-02] MEDS ORDERED: ATROPINE SULFATE 0.1 MG/ML 10ML SYR IV PRN (12:06)
[2019-10-02] MEDS ORDERED: ORTHO JOINT ANESTHETIC ONE (12:07)
--- NOTE | 2019-10-02 12:14 | History & Physical Bridge Note ---
Date of Service October 02, 2019 History & Physical Bridge Note I have examined the patient, reviewed the History & Physical and in the interval since the performance of the History & Physical I have noted the following changes of clinical significance: no changes noted
[2019-10-02] MEDS ORDERED: DEXAMETHASONE SOD INJ 4 MG/ML VIAL ONE (13:19)
[2019-10-02] MEDS ORDERED: ONDANSETRON INJ 2 MG/ML 2 ML VIAL ONE (13:19)
[2019-10-02] MEDS ORDERED: LIDOCAINE HCL 2% 2 ML VIAL/AMP(20MG/ML) INFIL ONE (13:19)
[2019-10-02] MEDS ORDERED: PROPOFOL IV EMULSION 10 MG/ML 20 ML VIAL IV ONE (13:19)
[2019-10-02] MEDS ORDERED: PHENYLEPHRINE HCL 10 MG/ML VIAL ONE (13:20)
[2019-10-02] MEDS ORDERED: ePHEDrine sulfate 50 MG/ML AMP ONE (13:20)
--- NOTE | 2019-10-02 14:09 | Operative Report ---
Post Operative Report Pre & Post Diagnosis Operation Date: 10/02/19 12:35 Pre-Op Diagnosis: Right Hip Osteoarthritis Post-Op Diagnosis: Right Hip Osteoarthritis I identified the patient and participated in the time-out.: Yes Procedure Operation Date: 10/02/19 12:35 Actual Procedures p Right Total Hip Arthroplasty, Uncemented(Right) - Arsh Interiano MD Surgeon Arsh Interiano MD Spa Associate FORTINO Clay PA-C Estimated Blood Loss 100 Findings Consistent with Post-Op Diagnosis Specimens Femoral head Anesthesia Type Spinal MAC Complications none Disposition Accompanied Patient To Recovery: No Disposition: Recovery Room Indications 74-year-old female with right hip osteoarthritis refractory to conservative management. She is undergone a left total hip in May of this year with a good result. X-rays show [id number] arthritis in the right hip. I reviewed the risks and benefits of surgery alternatives to surgery and expected outcomes. After reviewing all these she elected to proceed with surgery. All questions were answered. Informed consent was signed. Description of Procedure Patient was identified in the preoperative holding area and the surgical site, right hip, was marked. A spinal anesthetic was placed, then the patient was brought back to the main operating room, placed in the operating table and moved into the lateral decubitus position. Axillary roll was placed. All bony prominences were padded. Perioperative antibiotics and tranexamic acid 1 gram IV were administered. Operative extremity was prepped and draped in the normal sterile fashion. Prior to incision a multidisciplinary timeout was called. All in the room were in agreement. We began by making an incision for a posterior approach to the hip. We dissected down through subcutaneous tissues to the level of the fascia. The fascia was incised in line with the incision. Charnley bow was placed. The trochanteric bursa was excised. The piriformis and short external rotators were dissected off the posterior aspect of the hip. A box cut was made in the capsule. The femoral head was dislocated. The femoral neck cut was made at our preoperative template. The acetabulum was then exposed. The labrum was sharply excised. Contents of the cotyloid fossa were removed with electrocautery. We then began reaming at a size 8 mm less than our pr eoperative template. We reamed up by [address] the way up to a size 48 mm cup. This gave us good bleeding cancellus bone circumferentially. The acetabulum was then irrigated out and dried. The real [place] Gription cup was then impacted down into position with 45 degrees of lateral opening and 25 degrees of anteversion. A single cancellous bone screw was placed up into the ilium. Excellent fixation was obtained. An Altrx polyethylene liner for a 32 mm femoral head was then impacted into the shell. The locking mechanism was checked to ensure that it had engaged which it had. Next we turned our attention to the femur. The lateral neck was removed with a box osteotome. Intramedullary guide was used followed by the lateralizing reamer. We then reamed up to a size 3 [place] stem. We then broached all the way up to a size 3. We began trialing with a standard offset neck and a +5 mm head. Hip was reduced. Leg lengths were symmetric. The hip was stable in extension and external rotation, and stable in the sleeper position. At 90 degrees of hip flexion the hip could be internally rotated 70 degrees before levering out of the cup. I was very happy with the stability exam. Therefore the hip was dislocated and the femoral trial was removed. The femoral canal was irrigated and dried. The real size 3 standard offset [place] femoral stem was opened up. This was impacted down into position. It sat at the same level as the femoral trial. Therefore the 32 mm metal femoral head with a +5 mm offset was opened up and gently impacted down onto the trunnion. The hip was atraumatically reduced. Another 1 gram of IV tranexamic acid was started prior to closure. The wound was irrigated out with sterile Betadine solution. The periarticular injection cocktail was then placed. The short external rotators, piriformis, and posterior capsule were repaired through drill holes in the greater trochanter using #2 Vicryl. The fascia was run with a looped #1 PDS. The subcutaneous layer was closed with #1 PDS. The dermal layer was closed with 2-0 Vicryl. Zip line was used for the skin followed by a Silverlon dressing. A compressive dressing was then placed. The patient was then rolled supine. Leg lengths were rechecked and were symmetric. An abduction pillow was placed. Sedation was lifted and the patient was transferred to recovery room in stable condition. Summary of implants: Depuy [place] Gription Acetabular Shell Sector Cup, 48 mm outer diameter [place] Cancellous bone screw, 6.5 x 30 mm [place] Altrx Polyethylene Acetabular Liner, Neutral, with a 32 mm inner diameter DePuy [place] Femoral stem with Por[place]oat, 12/14 taper, size 3 standard 32 mm metal femoral head with +5 offset Postoperative course: Patient will be admitted to the hospital from the recovery room. Patient will be weightbearing as tolerated with posterior hip precautions. Aspirin for DVT prophylaxis I attest to the content of the Intraoperative Record and any orders documented therein. Any exceptions are noted below.
[2019-10-02] MEDS ORDERED: DiphenhydrAMINE HCL 50 MG/ML VIAL IV PRN (14:18)
[2019-10-02] MEDS ORDERED: NALOXONE HCL 0.4 MG/1 ML VIAL/CARP IV PRN (14:18)
[2019-10-02] MEDS ORDERED: bisacodyL 10 MG SUPP PR PRN (14:18)
[2019-10-02] MEDS ORDERED: ALUMINUM/MAGNESIUM SUSP 30 ML UDC PO PRN (14:18)
[2019-10-02] MEDS ORDERED: MAGNESIUM HYDROXIDE SUSP 30 ML UDC PO PRN (14:18)
[2019-10-02] MEDS ORDERED: OXYCODONE HCL IR 5 MG TAB (IMMEDIATE RELEASE) PO PRN (14:18)
[2019-10-02] MEDS ORDERED: METOCLOPRAMIDE HCL INJ 5 MG/ML 2 ML VIAL IV PRN (14:18)
--- NOTE | 2019-10-02 14:18 | Operative Report ---
Post Operative Report Pre & Post Diagnosis Operation Date: 10/02/19 12:35 Pre-Op Diagnosis: Right Hip Osteoarthritis Post-Op Diagnosis: Right Hip Osteoarthritis I identified the patient and participated in the time-out.: Yes Procedure Operation Date: 10/02/19 12:35 Actual Procedures p Right Total Hip Arthroplasty, Uncemented(Right) - Arsh Interiano MD Surgeon Arsh Interiano MD Transfer Driver FORTINO Clay PA-C Estimated Blood Loss 100 Findings Consistent with Post-Op Diagnosis Specimens Right femoral head Complications none Disposition Accompanied Patient To Recovery: Yes Disposition: Recovery Room Description of Procedure I was present during the entire case assisting with positioning, retraction, wound closure, dressing and abduction pillow placement. No Fellow was available for this case. Please see Dr. Interiano procedure note for specifics of the case. I attest to the content of the Intraoperative Record and any orders documented therein. Any exceptions are noted below.
[2019-10-02] MEDS ORDERED: NON-FORMULARY MEDICATION (Acetaminophen [Tylenol 8 Hour] 650 MG) PO PRN (14:22)
--- NOTE | 2019-10-02 14:46 | Anesthesiology Progress Note ---
Date of Service October 02, 2019 Anesthesia Post Procedure Vital Signs Vital Signs: Temp Pulse Pulse Resp BP Pulse Ox 10/02/19 14:35 90 17 119/69 92 10/02/19 14:25 97 H 16 124/60 97 10/02/19 14:15 36.4 C L 85 12 116/61 97 10/02/19 11:47 71 20 144/65 H 99 10/02/19 11:25 36.6 C 75 20 154/78 H 97 Pain Intensity Right Hip: Pain Intensity: 0 Transfer of Care Handoff Completed per policy Notes Mental Status: alert / awake / arousable Patient Amnestic to Procedure: Yes Nausea / Vomiting: adequately controlled Pain: adequately controlled Airway Patency, RR, SpO2: stable & adequate BP & HR: stable & adequate Hydration State: stable & adequate Neuraxial Anesthesia: was administered and sensory block is resolving Anesthetic Complications: no major complications apparent
--- NOTE | 2019-10-02 15:24 | XRay Report ---
XR hip 1V RT w pelvis CLINICAL HISTORY: Postoperative evaluation. COMPARISON: Pelvis radiograph September 10, 2019. FINDINGS: Alignment of the total right hip arthroplasty is anatomic. There is no periprosthetic frac ture or unexpected radiopaque foreign body. Acetabular screw is noted. Left arthroplasty is present. IMPRESSION: Expected findings following total right hip arthroplasty. ACT 112: Negative or not required by law. Electronically signed by: Yayo Castillo M.D. 10/02/2019 3:22 PM
[2019-10-02] MEDS: CHECK SCOPOLAMINE PATCH PLACEMENT SCH ×2 (19:03→23:52)
[2019-10-02] MEDS: SODIUM CHLORIDE 0.9% 1000ML 1,000 ML IV SCH (19:04)
[2019-10-02] MEDS: KETOROLAC TROMETHAMINE 15 MG/ML VIAL IV SCH ×2 (19:04→23:51)
[2019-10-02] MEDS: CEFAZOLIN 2000MG 2,000 MG/15 ML SYR IV SCH (19:08)
[2019-10-02] MEDS: TRAMADOL HCL 50 MG TABLET PO PRN (20:02)
[2019-10-02] MEDS ORDERED: TRANEXAMIC ACID / 0.7% NACL 1,000 MG/100 ML BAG IV SCH (20:30)
[2019-10-02] MEDS ORDERED: NON-FORMULARY MEDICATION (Cinnamon Bark [Cinnamon] 500 MG) PO SCH (21:00)
[2019-10-02] MEDS ORDERED: SENNA 8.6 MG TAB PO SCH (21:00)
[2019-10-02] MEDS ORDERED: ASPIRIN 81 MG ECTAB PO SCH (21:00)
[2019-10-02] MEDS: DOCUSATE SODIUM 100 MG CAP PO SCH (21:55)
[2019-10-02] MEDS: CALCIUM 600MG + VIT D 400 IU TAB PO SCH (21:55)
[2019-10-02] MEDS: ACETAMINOPHEN 500 MG TAB PO SCH (21:55)
[2019-10-02] MEDS: GABAPENTIN 300 MG CAP PO SCH (21:55)
[2019-10-02] MEDS: ASPIRIN 81 MG ECTAB PO SCH (21:55)
[2019-10-03] MEDS: SODIUM CHLORIDE 0.9% 1000ML 1,000 ML IV SCH (00:23)
[2019-10-03] MEDS: CEFAZOLIN 2000MG 2,000 MG/15 ML SYR IV SCH (04:25)
[2019-10-03 04:39] VITALS: BP 112/63; PULSE 70; TEMP 97.3; O2SAT 95
[2019-10-03] MEDS: KETOROLAC TROMETHAMINE 15 MG/ML VIAL IV SCH ×2 (05:14→12:43)
[2019-10-03] MEDS: ACETAMINOPHEN 500 MG TAB PO SCH ×2 (05:14→13:10)
[2019-10-03 06:08] LABS: Hematocrit (blood only) 31.4 % (37-47); Hemoglobin 10.6 g/dL (12.0-16.0); Immature Granulocytes # (auto) 0.01 K/uL (0.00-0.02); Immature Granulocytes % (auto) 0.1 %; Lymphocytes # (auto) 0.65 K/uL (1.2-3.4); Lymphocytes % (auto) 6.9 %; Mean Corpuscular Hemoglobin 30.5 pg (25-34); Mean Corpuscular Hgb Conc 33.8 g/dL (32-36); Mean Corpuscular Volume 90.5 fL (80-100); Mean Platelet Volume 8.9 fL (7.4-10.4); Monocytes # (auto) 0.55 K/uL (0.11-0.59); Monocytes % (auto) 5.8 %; Neutrophils # (auto) 8.23 K/uL (1.4-6.5); Neutrophils % (auto) 87.2 %; Platelet Count 275 K/uL (130-400); RDW Coefficient of Variation 13.7 % (11.5-14.5); RDW Standard Deviation 45.3 fL (36.4-46.3); Red Blood Count 3.47 M/uL (4.2-5.4); White Blood Count 9.44 K/uL (4.8-10.8)
[2019-10-03 06:37] LABS: BUN Creatinine Ratio 19.5 (10-20); Calcium 8.3 mg/dl (8.5-10.1); Creatinine Clr Calc Pharmacy 45.4 ml/min; Est GFR (African American) 65.5; Est GFR (Non-African American) 56.5; Potassium 4.8 mmol/L (3.5-5.1)
[2019-10-03] MEDS ORDERED: dexAMETHasone 4 MG TAB PO SCH (08:00)
[2019-10-03] MEDS: CHECK SCOPOLAMINE PATCH PLACEMENT SCH (08:20)
[2019-10-03] MEDS: CALCIUM 600MG + VIT D 400 IU TAB PO SCH (08:21)
[2019-10-03] MEDS: DOCUSATE SODIUM 100 MG CAP PO SCH (08:22)
[2019-10-03] MEDS: ASPIRIN 81 MG ECTAB PO SCH (08:24)
[2019-10-03] MEDS: GABAPENTIN 300 MG CAP PO SCH ×2 (08:24→13:10)
[2019-10-03] MEDS: TRAMADOL HCL 50 MG TABLET PO PRN (08:30)
[2019-10-03] MEDS ORDERED: OMEGA-3 (PURIFIED FISH OIL) 1 GM CAP PO SCH (09:00)
[2019-10-03] MEDS ORDERED: NON-FORMULARY MEDICATION (Multivitamin 1 CAP) PO SCH (09:00)
[2019-10-03] MEDS ORDERED: MULTIVITAMIN TAB PO SCH (09:00)
[2019-10-03] MEDS ORDERED: TAMOXIFEN CITRATE 10 MG TABLET PO SCH (09:00)
[2019-10-03] MEDS ORDERED: LISINOPRIL/HCTZ 20/25MG 1 TAB PO SCH (09:00)
[2019-10-03] MEDS ORDERED: NON-FORMULARY MEDICATION (Turmeric 400 MG) PO SCH (09:00)
--- NOTE | 2019-10-03 10:23 | Orthopedic Progress Note ---
Date of Service October 03, 2019 Assessment & Plan (1) S/P total hip arthroplasty: WBAT with walker Pain control with PO meds Ice with EZ wrap DVT proph with TEDs and Aspirin Total hip precautions Abduction pillow use x 6 wks Discharge home today with in home therapy Follow up at [facility] as previously instructed With questions call Admission and Anticipated Discharge Date Admission Date: October 02, 2019 Subjective This 74 yo F is day 1 s/p Right Total Hip Arthroplasty. She is doing very well and states that her pain is well controlled with PO Tramadol. She is planning on discharge today with in home therapy. Currently she is working with OP. She denies CP, SOB, nausea, vomiting, fever, chills, sweats or lethargy. Review of Systems Review of Systems: All systems reviewed & are unremarkable except as noted in Subjective Physical Exam Physical Exam: Right Hip: Dressing clean, dry and intact. Able to easily stand with walker. Can actively dorsi/plantar flex foot and perform SLRT. Minimal tension with very light passive internal/external hip rotation. No pain with log roll or with knee flexion to 90 degrees. NV intact. No edema, erythema, ecchymosis, warmth or fluctuance. Quad strength 4/5. Calf soft and supple. Results & Data ([facility]) Vital Signs (Past 12 Hours) Vital Signs Temp Pulse Resp BP Pulse Ox 10/03/19 04:00 36.3 C L 70 18 112/63 95 10/02/19 23:02 36.7 C 56 L 16 107/57 L 94 Laboratory Results 10/03/19 10/03/19 10/02/19 Range/Units 05:17 05:17 14:26 WBC 9.44 (4.8-10.8) K/uL RBC 3.47 L (4.2-5.4) M/uL Hgb 10.6 L (12.0-16.0) g/dL Hct 31.4 L (37-47) % MCV 90.5 (80-100) fL MCH 30.5 (25-34) pg MCHC 33.8 (32-36) g/dL RDW Std Deviation 45.3 (36.4-46.3) fL RDW Coeff of Vincent 13.7 (11.5-14.5) % Plt Count 275 (130-400) K/uL MPV 8.9 (7.4-10.4) fL Immature Gran % (Auto) 0.1 % Neut % (Auto) 87.2 % Lymph % (Auto) 6.9 % [place] % (Auto) 5.8 % Eos % (Auto) 0.0 % Baso % (Auto) 0.0 % Neut # (Auto) 8.23 H (1.4-6.5) K/uL Lymph # (Auto) 0.65 L (1.2-3.4) K/uL [place] # (Auto) 0.55 (0.11-0.59) K/uL Eos # (Auto) 0.00 (0-0.5) K/uL Baso # (Auto) 0.00 (0-0.2) K/uL Immature Gran # (Auto) 0.01 (0.00-0.02) K/uL Sodium 137 (136-145) mmol/L Potassium 4.8 (3.5-5.1) mmol/L Chloride 104 (98-107) mmol/L Carbon Dioxide 26 (21-32) mmol/L Anion Gap 7.0 (3-11) BUN 19 H (7-18) mg/dl Creatinine 0.99 (0.6-1.2) mg/dl Est Cr Clr Drug Dosing 45.4 ml/min Est GFR ( Amer) 65.5 Est GFR (Non-Af Amer) 56.5 BUN/Creatinine Ratio 19.5 (10-20) Glucose 131 H (70-99) mg/dl POC Glucose 125 H (70-99) mg/dl Calcium 8.3 L (8.5-10.1) mg/dl
--- NOTE | 2019-10-03 10:25 | Discharge Summary ---
Date of Service October 03, 2019 Admission HPI Per Admitting Provider PRE-OP Diagnosis: Right Hip Osteoarthritis Planned Procedure: Right Total Hip Arthroplasty Chief Complaint: Right Hip Pain History of Present Illness (including history relevant to procedure): This 74-year-old female presents to the clinic today for preoperative history and physical examination. Patient states that her right hip is both been bothering her since mid May. She underwent a left total hip arthroplasty this past May and states that her left hip feels great. She states that the right hip is causing her to have pain with transitioning from a seated to a standing position, walking, and doing things around her home. She elects to undergo a right total hip arthroplasty to help improve these issues. She states that she has been using tramadol intermittently for breakthrough pain but wishes to discontinue it prior to the procedure. Past Medical History: Problems: Osteoarthritis of right hip Status post total replacement of left hip Osteoarthritis of left hip Preop examination LBP (low back pain) Knee pain HTN (hypertension) Spondylolisthesis Procedure History Procedure Procedure Date Comments Wrist surgery, left 1997 Ectopic 1981 Tonsillectomy 1970 Left Total Hip Arthroplasty 2019 Allergies and Sensitivities: ibuprofen(Hives) Cipro(Hives) Current Home Meds: (Last Updated 06/30 14:27) acetaminophen(Aspir 81)citrate (calcium (as calcium citrate) 250 mg oral tablet) cinnamontopical (clindamycin 1% topical swab)topical (diclofenac 1% topical gel)(gabapentin 300 mg oral capsule)lisinopril (hydroCHLOROthiazide-lisinopril 12.5 mg-20 mg oral tablet) lisinopril PO Daily multivitaminpolyunsaturated fatty acids (Fish Oil oral capsule)(tamoxifen 20 mg oral tablet)(traMADol 50 mg oral tablet) 50 mg PO q6h not to exceed 400 mg/day turmeric Admission Exam Per Admitting Provider Physical Exam: (relevant to the procedure, including heart and lung evaluation) General: Patient is alert and oriented x3 with proper grooming and hygiene Eyes: Pupils are equal reactive to light and accommodating. Extraocular lids are intact bilaterally Throat: Posterior oropharynx clear with absence of edema erythema or exudate Cardiac: Regular rate and rhythm; no murmurs, or gallops appreciated Lungs: Clear breath sounds throughout; with no wheezing, rales, rhonchi Abdomen: Obese, nondistended, with normal active bowel sounds Extremities:Right hip exam reveals a flexion limited to 100 degrees, external rotation of 45 degrees and internal rotation of 10 degrees with pain on end range of motion. Distally neurovascularly intact. Patient also has pain with passive abduction and adduction. Kim test was Positive. Logroll test, Stinchfield test and straight leg raise test were all positive Neuro: Cranial nerves II through XII are intact with no motor or sensory deficit Skin: Skin is normal in appearance with no open skin lesions or discharge Principal Diagnosis Right Hip Osteoarthritis Discharge Exam Right Hip: Dressing clean, dry and intact. Able to easily stand with walker. Can actively dorsi/plantar flex foot and perform SLRT. Minimal tension with very light passive internal/external hip rotation. No pain with log roll or with knee flexion to 90 degrees. NV intact. No edema, erythema, ecchymosis, warmth or fluctuance. Quad strength 4/5. Calf soft and supple. Discharge Data Allergies Allergy/AdvReac Type Severity Reaction Status Date / Time ciprofloxacin [From Cipro] Allergy Intermediate hives Verified 10/02/19 11:16 ibuprofen Allergy Intermediate rash Verified 10/02/19 11:16 Consultations 10/03/19 08:00 Consult Case Management - Discharge Planning Routine Procedures Performed Operation Date: 10/02/19 12:35 Actual Procedures p Right Total Hip Arthroplasty, Uncemented(Right) - Arsh Interiano MD Hospital Course (1) S/P total hip arthroplasty: Patient did very well overnight. He pain was well controlled with PO Tramadol. She is planning discharge home later today with in home therapy. She was very please with her care. WBAT with walker Pain control with PO meds Ice with EZ wrap DVT proph with TEDs and Aspirin Total hip precautions Abduction pillow use x 6 wks Discharge home today with in home therapy Follow up at [facility] as previously instructed With questions call Total Time Total Time Spent Total Time Spent (In Minutes): 20 mins Total Time Includes: Examination of the Patient, Discharge Planning and Medication Reconciliation Discharge Plan Discharge Items Patient Disposition: Home - Home Health Services Reason For Visit: Right Hip Osteoarthritis Discharge Diagnosis: Right Hip Osteoarthritis Activity: As commented below Lifting: None Bathing: Keep incision dry Bathing Comment: May shower tomorrow Sexual Activity: Wait until after follow-up appointment Exercise/Sports: Wait until after follow-up appointment Driving/Machine Use: No driving until cleared by division operations specialist Weightbearing Comment: as tolerated with walker assistance Non-emergency contact: Primary Care Provider Call non-emergency contact if: you have any medication questions, your pain is not controlled, your temperature is above 101.5 and your wound has increased drainage Follow-up/Referrals: Arsh Silver MD [Primary Care Provider] - Diet: Regular Addtl Attending Provider Instructions: Post-operative Instructions Dear Patient and Family/Friends, Before you are discharged from the hospital, it is important to know what to expect when you get home after surgery. To that end, we have created this sheet of discharge instructions which covers many commonly asked questions. Make sure you go through this sheet in its entirety with your nurse before you are discharged. Please note that we will go over the specifics of your surgery and recovery when you return for your first post-operative visit. Sincerely, Dr. Interiano Medications 1. Tramadol 50 mg: take 1-2 tabs po q 4-6 hrs for pain. 30 tabs will be sent to your pharmacy. 2. Diclofenac Sodium 75 mg: take 1 tab twice daily for 30 days post operative. This will be sent to your pharmacy with 1 refill. 3. Aspirin 81 mg: increase your aspirin to twice daily 30 days post operatively for blood clot prevention. 4. Extra Strength Tylenol 500mg: take 2 tabs every 6-8 hrs as needed for pain control post operatively. Please purchase. Pain Expect to be in a fair amount of pain after surgery. Remember, our goal is not to eliminate your pain, but to make it tolerable. It is a good idea to stay ahead of your pain by taking the medications you were prescribed once you get home. Typically, the pain starts improving 3-7 days after surgery. You should start weaning off the narcotic pain medication (oxycodone, hydrocodone, hydro morphone, morphine) as soon as your pain improves. Please call our office if your pain is not adequately controlled. Ice Ice your operative site at least 5 times a day for 15-30 minutes at a time. Make sure you have a thin cloth between the ice or cooling unit and your skin to prevent henning bite. This is especially important if you received a nerve block. Continue icing your operative site for the first 5-7 days after surgery, then as needed. Diet/Nausea/Vomiting Start by drinking clear liquids and eating crackers. If you can tolerate this, then you may resume your normal diet. If you feel nauseated or vomit, take Zofran/ondansetron (if prescribed). Please call our office if you have intractable nausea or vomiting, or, if after hours, you may go to the Emergency Room for help. Constipation Constipation is a common side effect of narcotic pain medication. If you have not had a bowel movement within 2 days after surgery, we recommend purchasing an over the counter laxative such as Milk of Magnesia, Dulcolax, or Miralax from a local pharmacy, and taking it as instructed. Call our clinic if any questions. Nerve block The anesthesia team sometimes places a nerve block to help with post-operative pain control. This results in significant numbness and inability to move the extremity. The nerve block usually wears off in 8-12 hours, but sometimes can last up to 24 hours. Please call our office if you are still unable to move your extremity after 24 hours, unless you received a pain pump to take home. Nerve blocks typically wear off quickly, so start taking pain medication as soon as you start feeling soreness near your surgical site. Weight bearing and Range of Motion. Do not bear any weight through your operative extremity immediately after surgery. If you had upper extremity surgery, do not lift anything with that arm. If you are in a knee brace, keep it locked in place until your follow-up. We will discuss your weight bearing, range of motion, and lifting restrictions in detail at your first post-operative appointment. Continuous Passive Motion (CPM) Machine If you were prescribed a CPM machine, it will start after your first post- operative appointment, at which time we will give you instructions on the range of motion settings and duration of treatment Physical therapy You will be given a prescription for physical therapy or occupational therapy at your first post-operative appointment. Typically, patients start therapy within 1 week of surgery Wound care and showering We will inspect your wound at your first post-operative visit, and may do a dressing change at that time. Most patients will be in a water-proof dressing that is removed 14 days after surgery. It is normal to see some dried blood on the dressing. Do not remove your dressing, paper strips or sutures yourself unless you are given permission. Showering is allowed the day after surgery. Do not scrub or remove any dressings. The wound should not be submerged underwater (i.e. in a bathtub or pool) until 4 weeks after surgery LOW stockings If you were given white stockings, these are to be worn at all times except to shower (on both legs) for the first 2 weeks after surgery. Driving You may not drive while taking narcotic pain medication or while in a cast, splint, sling or brace. You, the patient, need to make the final determination about when you are safe to drive, however, the earliest you may consider driving after surgery is below: Hand/Wrist/Elbow Surgery: 3 days Shoulder Surgery: 2 weeks Hip,/Knee/Ankle Surgery: 4 weeks Fracture repair: 6 weeks Return to Work Your return to work depends on what surgery was done and what type of work you do. Please bring any paperwork your employer needs completed to your first post-operative visit. Also, bring a description of your job duties, as this helps us to understand what risks you may face at work. Travel Avoid long distance travel (greater than 1 hour) in airplanes and cars for the first 6 weeks after surgery. If you must travel, you need to have a Doppler ultrasound done before you travel to rule out a blood clot in your legs. Follow-up You should have a follow-up appointment already scheduled 1-2 days after surge ry. If not, please contact our office to make this appointment before you leave the hospital. When to call the office It is normal to have swelling and bruising in the limb that was operated on. This will improve with time. It is also normal to have fevers for the first 2 days after surgery. Reasons you should call your doctor include: Uncontrolled pain; Nausea, vomiting, or constipation that does not improve with medication; Fevers over 101.5, chills, sweats; Drainage or bleeding from the wound; Foul odor; Spreading areas of redness; Any other concerns Pending Studies at Discharge: No Stand-Alone Forms: [facility], Opioid Pain Management Medications and DC Order Prescriptions: New tramadol 50 mg tablet 50 mg PO Q6H Qty: 30 RF: 0 diclofenac sodium 75 mg tablet,delayed release (DR/EC) 75 mg PO BID 30 Days Qty: 60 RF: 1 Continued lisinopril-hydrochlorothiazide 20-25 mg tablet 1 tab PO QAM RF: 0 diclofenac sodium 1 % kit 2 gm TOP BID RF: 0 tretinoin [Retin-A] 0.025 % cream 1 appln TOP DAILY RF: 0 clindamycin phosphate 1 % swab 1 appln TOP HS PRN (Reason: Rash) RF: 0 Caltrate 600-D Plus Minerals 600 mg calcium- 800 unit-50 mg tablet 1 tab PO BID RF: 0 cinnamon bark [Cinnamon] 500 mg capsule 500 mg PO BID RF: 0 multivitamin capsule 1 cap PO QAM RF: 0 omega-3 fatty acids [Fish Oil Concentrate] 1,000 mg capsule 2,000 mg PO QAM RF: 0 gabapentin 300 mg capsule 300 mg PO TID RF: 0 tamoxifen 20 mg tablet 20 mg PO QAM RF: 0 turmeric 400 mg Capsule 400 mg PO QAM RF: 0 acetaminophen [Tylenol 8 Hour] 650 mg Tablet Extended Release 650 mg PO TID PRN (Reason: Pain) RF: 0 Changed aspirin [Aspirin Low Dose] 81 mg tablet,delayed release (DR/EC) 81 mg PO BID Qty: 0 RF: 0 Discharge Orders: Discharge Order (Routine); Ordered 10/03/19 Ordered By: Pal Tan/Other Patient Handouts: Prediabetes, A1C Admission Data Admit Date/Time: 10/02/19 14:18 Attending Provider: Arsh Interiano Admit Provider: Arsh Interiano Primary Care Provider: Arsh Silver
[2019-10-03] MEDS ORDERED: CeleBREX 200 MG CAP PO SCH (21:00)
== END 2019-10-03 13:20 | disposition home health service (06) ==
LOC: 3E 10:33 → ASU 10:33

== ENCOUNTER 2021-04-14 05:19 | Observation (INO) ==
--- NOTE | 2020-12-31 16:19 | PAT Medication Instructions ---
Medication Instructions Date of Service December 31, 2020 Home Medications calcium 600 mg-D3 800 unit-mag11 50 dl-dojo-upkwuj-angelita-s.borat tablet (Caltrate 600-D Plus Minerals) 1 tab PO BID cinnamon bark 500 mg capsule (Cinnamon) 1,000 mg PO QAM clindamycin phosphate 1 % topical swab 1 appln TOP HS PRN diclofenac sodium 1 % gel topical kit 2 gm TOP BID PRN multivitamin 1 cap PO QAM omega-3 fatty acids 1,000 mg capsule (Fish Oil Concentrate) 1,000 mg PO QAM tamoxifen 20 mg tablet 20 mg PO QAM acetaminophen 650 mg tablet,extended release (Tylenol 8 Hour) 650 mg PO TID PRN adapalene 0.1 % topical cream (Differin) 1 applic TOPICAL DAILY aspirin 81 mg tablet,delayed release (Aspirin Low Dose) 81 mg PO QAM gabapentin 300 mg capsule 300 mg PO QAM lisinopril 20 mg-hydrochlorothiazide 12.5 mg tablet 1 tab PO QAM turmeric root extract 500 mg capsule 500 mg PO QAM celecoxib 200 mg capsule (Celebrex) 200 mg PO QAM PRN ASK your surgeon for instructions celecoxib 200 mg capsule (Celebrex) 200 mg PO QAM PRN ASK your prescriber and surgeon tamoxifen 20 mg tablet 20 mg PO QAM STOP taking 2 weeks before surgery (or as soon as possible if surgery is within 2 weeks) cinnamon bark 500 mg capsule (Cinnamon) 1,000 mg PO QAM omega-3 fatty acids 1,000 mg capsule (Fish Oil Concentrate) 1,000 mg PO QAM turmeric root extract 500 mg capsule 500 mg PO QAM STOP taking 24 hours before surgery clindamycin phosphate 1 % topical swab 1 appln TOP HS PRN diclofenac sodium 1 % gel topical kit 2 gm TOP BID PRN adapalene 0.1 % topical cream (Differin) 1 applic TOPICAL DAILY DO NOT take the morning of surgery calcium 600 mg-D3 800 unit-mag11 50 pq-fald-ythmoo-angelita-s.borat tablet (Caltrate 600-D Plus Minerals) 1 tab PO BID multivitamin 1 cap PO QAM lisinopril 20 mg-hydrochlorothiazide 12.5 mg tablet 1 tab PO QAM Take morning of surgery With a small sip of water, OTHERWISE NOTHING TO EAT OR DRINK AFTER MIDNIGHT: acetaminophen 650 mg tablet,extended release (Tylenol 8 Hour) 650 mg PO TID PRN (okay to take up to 4 hours prior to surgery if needed) aspirin 81 mg tablet,delayed release (Aspirin Low Dose) 81 mg PO QAM (continue as normal unless told otherwise by surgeon) gabapentin 300 mg capsule 300 mg PO QAM Take evening before surgery calcium 600 mg-D3 800 unit-mag11 50 pl-mnet-kslenc-angelita-s.borat tablet (Caltrate 600-D Plus Minerals) 1 tab PO BID acetaminophen 650 mg tablet,extended release (Tylenol 8 Hour) 650 mg PO TID PRN (if needed) Other Notes If you have any questions please call us at [phone] or [phone] or [phone] or [phone]
--- NOTE | 2021-01-05 11:31 | Anesthesiology Consultation ---
Date of Service January 05, 2021 Assessment & Plan (1) Encounter for pre-operative examination: - PCP 12/14/2020: "Overall medically in good condition for planned TKR." - nickel allergy (rash/itching) marked on OR sheet. - anesthesia record 05/2019 left EDVIN: some confusion post-op, pt kept for an additional night to work with PT to ensure she fully grasped the total hip precautions. 10/2019 right EDVIN: SAB, L3/L4, 1 attempt. No issues reported on anesthesia re cord, overnight as planned. - COVID screening: Per assessment on 01/05/2021: Travel screen negative, no known COVID-19 positive contacts or current COVID-19 related symptoms. Patient vaccinated. Surgeon arranging preop COVID testing, scheduled 01/18/2021. Awaiting results. Chart Review Chart Review: Acceptable Risk for Surgery and Patient seen in Pre Admission Testing Teaching & Discussion Pre-Anesthesia Teaching/Discussion Notes: Instructed NPO after midnight before surgery, except medications with 15 cc of water. Medication instructions provided according to the PAT guidelines. History Surgery Operation Date: 01/20/21 07:00 Proposed Procedures p Left Total Knee Arthroplasty - Arsh Interiano MD Height/Weight Height: 5 ft Weight: 73.8 kg Allergies Allergy/AdvReac Type Severity Reaction Status Date / Time ciprofloxacin [From Cipro] Allergy Intermediate hives Verified 12/29/20 12:23 ibuprofen Allergy Intermediate rash Verified 12/29/20 12:23 nickel Allergy Mild itching/kely Uncoded 12/29/20 12:23 h Medications Home Medications Medication Instructions Recorded Confirmed Last Taken calcium 600 mg-D3 800 unit-mag11 1 tab PO BID 10/23/18 12/29/20 06/15/20 50 hq-drwe-mgqqvs-angelita-s.borat tablet (Caltrate 600-D Plus Minerals) cinnamon bark 500 mg capsule 1,000 mg PO QAM cap 10/23/18 12/29/20 06/15/20 (Cinnamon) clindamycin phosphate 1 % topical 1 appln TOP HS PRN ea 10/23/18 12/29/20 09/30/19 21:00 swab diclofenac sodium 1 % gel topical 2 gm TOP BID PRN ea 10/23/18 12/29/20 06/16/20 07:00 kit multivitamin 1 cap PO QAM 10/23/18 12/29/20 06/15/20 omega-3 fatty acids 1,000 mg 1,000 mg PO QAM 11/18/18 12/29/20 06/15/20 capsule (Fish Oil Concentrate) tamoxifen 20 mg tablet 20 mg PO QAM 04/09/19 12/29/20 06/16/20 07:00 acetaminophen 650 mg 650 mg PO TID PRN 09/09/19 12/29/20 06/16/20 07:00 tablet,extended release (Tylenol 8 Hour) adapalene 0.1 % topical cream 1 applic TOPICAL DAILY 11/14/19 12/29/20 Unknown (Differin) aspirin 81 mg tablet,delayed 81 mg PO QAM 05/24/20 12/29/20 06/15/20 release (Aspirin Low Dose) gabapentin 300 mg capsule 300 mg PO QAM 05/24/20 12/29/20 06/15/20 lisinopril 20 1 tab PO QAM 05/24/20 12/29/20 06/16/20 07:00 mg-hydrochlorothiazide 12.5 mg tablet turmeric root extract 500 mg 500 mg PO QAM 05/24/20 12/29/20 06/15/20 capsule celecoxib 200 mg capsule (Celebrex) 200 mg PO QAM PRN 11/11/20 12/29/20 Unknown Past Medical History Medical History (Updated 01/05/21 @ 11:42 by Vivien Perez PA-C) Arthritis Hyperlipidemia no meds Hypertension Well controlled, stable Obesity Prediabetes diet controlled Primary invasive malignant neoplasm of right female breast s/p lumpectomy- 08/2018; s/p XRT (2018)- no current issues- no limb restriction Patient denies h/o stroke, seizures, heart attack, heart failure, blood clots or blood transfusions. Exercise / Class Metabolic Activity II 4-5 Yardwork/Stairs/Walk up hill (mild SOB with exertion, chronic per patient with reduced activity due to pain. Denies CP.) Past Family History Family History Mother , age 86 CVA No problems noted. Father , age 75 surgical complications prostate operation No problems noted. Son No problems noted. Other No family history of adverse response to anesthesia Past Surgical History Surgical History (Updated 01/06/21 @ 08:44 by Vivien Perez PA-C) History of cataract surgery Left (2020) History of colonoscopy 2020 History of right cataract surgery History of tonsillectomy History of total hip arthroplasty Left hip replacement (05/2019): post-op confusion per discharge summary Right hip replacement (10/02/19): SAB at L3/L4 x1 attempt at [facility] S/P epidural steroid injection Status post ectopic Status post right breast lumpectomy "partial mastectomy"-2018 Past Anesthesia History No Hx of Anesthesia Complications and No Family Hx of Anesthesia Complications History of PONV No Hx of PONV and No Hx of Motion Sickness Social History Smoking Status: Former smoker tobacco type: cigarettes Smoking cigarettes per day: 1/2 pack per day x 12 years Do You Dip or Chew Tobacco: No Smoking End Date: QUIT AGE 33 Hx Alcohol Use: Yes Alcohol type: beer alcohol intake frequency: 0-2 drinks per day Hx Substance Use: No substance use type: does not use Review of Systems Patient denies chest pain, shortness of breath, dizziness, lightheadedness, reflux, fever, chills, cough, wheezing, palpitations. Physical Exam Vital Signs Vitals BP 138/57 P 74 TEMP 97.4 SP02 96% on RA RESP 16 Physical Full cervical extension range of motion without pain TMD 3.5 finger breaths Mallampati Score 3, small oral opening Dentition: intact, left upper crown, denies loose, missing, chipped teeth, bridges, implants or dentures Lungs: normal respiratory effort. Clear throughout to auscultation, no adventitious breath sounds Cardiac: regular rate and rhythm, no murmurs noted Carotid arteries: negative bruit bilat Extremities: trace bilat distal lower extremity edema (chronic per patient without change or worsening, reports monitored by PCP) Lab Results Anesthesia Preop Results Results Anesthesia Widget: WBC 6.35 K/uL (4.8-10.8) 01/05/21 Hgb 12.5 g/dL (12.0-16.0) 01/05/21 Hct 36.8 % (37-47) L 01/05/21 Plt 290 K/uL (130-400) 01/05/21 Na 136 mmol/L (136-145) 01/05/21 K 4.7 mmol/L (3.5-5.1) 01/05/21 Cl 102 mmol/L (98-107) 01/05/21 CO2 28 mmol/L (21-32) 01/05/21 BUN 20 mg/dl (7-18) H 01/05/21 Creat 0.75 mg/dl (0.6-1.2) 01/05/21 Glucose Level 91 mg/dl (70-99) 01/05/21 PT 10.4 Seconds (9.0-12.0) 01/05/21 INR 1.0 (0.9-1.1) 01/05/21 HA1c 5.8 % (4.5-5.6) H 01/05/21 Urine Color Yellow 01/05/21 Urine Appearance Clear (Clear) 01/05/21 Urine pH 8.5 (4.5-7.5) H 01/05/21 Urine Specific [place] 1.012 (1.000-1.030) 01/05/21 Urine Protein Negative (Negative) 01/05/21 Urine Glucose (UA) Negative (Negative) 01/05/21 Urine Ketones Negative (Negative) 01/05/21 Urine Blood Negative (Negative) 01/05/21 Urine Nitrite Negative (Negative) 01/05/21 Urine Bilirubin Negative (Negative) 01/05/21 Urine Urobilinogen Negative (Negative) 01/05/21 Urine Leukocyte Esterase Trace (Negative) H 01/05/21 Urine WBC (Auto) 1-5 /hpf (0-5) 01/05/21 Urine RBC (Auto) 0-4 /hpf (0-4) 01/05/21 Urine Hyaline Casts (Auto) 1-5 /lpf (0-5) 01/05/21 Urine Epithelial Cells (Auto) >30 /lpf (0-5) H 01/05/21 Urine Bacteria (Auto) Negative (Negative) 01/05/21 Blood Type O Positive 01/05/21 Antibody Screen NEGATIVE 01/05/21 Testing Electrocardiogram Date: 01/05/21 Normal sinus rhythm, rate 63 bpm. Normal ECG When compared with ECG of 14-MAY-2019 16:19, No significant change was found Confirmed by Manish Bautista.
--- NOTE | 2021-01-06 15:21 | History & Physical Report ---
Date of Service January 06, 2021 Assessment & Plan (1) Osteoarthritis of left knee: Plan: PRE-OP Diagnosis: Left knee arthritis, genu valgum Planned Procedure: Left total knee arthroplasty Plan: Patient is scheduled to undergo this procedure at the [facility] Dr. Arsh Interiano on January 20, 2021. Risks and complications of the procedure such as: Infection, bleeding, pain, scarring, nerve blood vessel damage, weakness, wound problems, stiffness, incomplete relief of symptoms, hardware failure, hardware loosening, wear, fracture, tendon or ligament injury, blood clots, embolism, heart attack, stroke and were explained the patient had a visit today. However informed consent will be obtained until the day of her procedure with Dr. Interiano present. Patient also understands risks of proceeding with surgical intervention during the COVID-19 pandemic. Currently she is asymptomatic and understands that she will need to be tested prior to surgery. Patient states that she saw her primary care provider Dr. Silver. We faxed a clearance form tomorrow awaiting it to be faxed back. Patient is scheduled to meet with anesthesia later today and while there she will obtain a CBC with differential, complete metabolic panel, PT/INR, blood type and screen, urinalysis, urine culture and sensitivity, EKG, hemoglobin A1c and a nasal culture for MRSA. During today's visit we reviewed the total knee packet, discussed discharge planning and in-home physical therapy for the first 2 weeks postoperatively. Advised the patient that I will provide her with prescriptions for pain medication upon discharge from the hospital. She states she has a walker she will bring with her on the day of procedure. Patient does have a nickel allergy so we will use [employer] products. Patient is scheduled for 2-week postoperative follow-up with myself on February 04 at 1 PM. Patient verbalized understanding of all information provided during today's visit. She thanks for the care that she received. If she has questions or c oncerns should arise prior to her surgery, she will contact clinic. History of Present Illness Chief Complaint: Chief Complaint: Left knee pain Primary Care Provider: Arsh Silver MD History of Present Illness (including history relevant to procedure): This 75-year-old female presents the clinic today for preoperative history and physical. Patient states she has a longstanding history of left knee pain. She states that she occasionally uses Celebrex. She states the knee is becoming more problematic and on a recent trip to [facility] she was unable to go to [facility] with her son because the pain became excruciating. Patient states she is ready to undergo total knee arthroplasty so that she can regain her normal function and partake in activities that she used to. Review Of Systems: A 12 point review of systems performed is unremarkable except for those things stated in the HPI past medical history. Past Medical History: Problems: Osteoarthritis of left knee Dressing change or removal, surgical wound Osteoarthritis of right hip Status post total replacement of left hip Osteoarthritis of left hip Preop examination LBP (low back pain) Knee pain HTN (hypertension) Spondylolisthesis Procedure History Procedure Procedure Date Comments Wrist surgery, left 1997 Ectopic 1980 Tonsillectomy Right and Left total hip arthroplasty 1969 2019 Allergies and Sensitivities: Nickel(rash) ibuprofen(Hives) Cipro(Hives) Current Home Meds: (Last Updated 01/05 10:14) acetaminophen amoxicillin (amoxicillin 500 mg oral capsule) 2,000 mg PO As indicated one hour before dental and other procedures as directed aspirin (Aspir 81) calcium citrate (calcium (as calcium citrate) 250 mg oral tablet) celecoxib (CeleBREX 200 mg oral capsule) 200 mg PO Daily PRN: as needed for pain cinnamon clindamycin topical (clindamycin 1% topical swab) diclofenac topical (diclofenac 1% topical gel) gabapentin (gabapentin 300 mg oral capsule) hydroCHLOROthiazide-lisinopril (hydroCHLOROthiazide-lisinopril 12.5 mg-20 mg oral tablet) lisinopril PO Daily multivitamin omega-3 polyunsaturated fatty acids (Fish Oil oral capsule) taMOXIfen (tamoxifen 20 mg oral tablet) turmeric Initial Wt: 01/05 74.3 kg 163 lb Allergies Allergy/AdvReac Type Severity Reaction Status Date / Time ciprofloxacin [From Cipro] Allergy Intermediate hives Verified 12/29/20 12:23 ibuprofen Allergy Intermediate rash Verified 12/29/20 12:23 nickel Allergy Mild itching/kely Uncoded 12/29/20 12:23 h Home Medications Medication Instructions Recorded Confirmed Type calcium 600 mg-D3 800 unit-mag11 1 tab PO BID 10/23/18 12/29/20 History 50 ni-zeok-yibddw-angelita-s.borat tablet (Caltrate 600-D Plus Minerals) cinnamon bark 500 mg capsule 1,000 mg PO QAM cap 10/23/18 12/29/20 History (Cinnamon) clindamycin phosphate 1 % topical 1 appln TOP HS PRN ea 10/23/18 12/29/20 History swab diclofenac sodium 1 % gel topical 2 gm TOP BID PRN ea 10/23/18 12/29/20 History kit multivitamin 1 cap PO QAM 10/23/18 12/29/20 History omega-3 fatty acids 1,000 mg 1,000 mg PO QAM 11/18/18 12/29/20 History capsule (Fish Oil Concentrate) tamoxifen 20 mg tablet 20 mg PO QAM 04/09/19 12/29/20 History acetaminophen 650 mg 650 mg PO TID PRN 09/09/19 12/29/20 History tablet,extended release (Tylenol 8 Hour) adapalene 0.1 % topical cream 1 applic TOPICAL DAILY 11/14/19 12/29/20 History (Differin) aspirin 81 mg tablet,delayed 81 mg PO QAM 05/24/20 12/29/20 History release (Aspirin Low Dose) gabapentin 300 mg capsule 300 mg PO QAM 05/24/20 12/29/20 History lisinopril 20 1 tab PO QAM 05/24/20 12/29/20 History mg-hydrochlorothiazide 12.5 mg tablet turmeric root extract 500 mg 500 mg PO QAM 05/24/20 12/29/20 History capsule celecoxib 200 mg capsule (Celebrex) 200 mg PO QAM PRN 11/11/20 12/29/20 History Past Med/Surg History Medical History (Updated 01/06/21 @ 15:19 by Pal Clay PA-C) Arthritis Hyperlipidemia no meds Hypertension Well controlled, stable Obesity Prediabetes diet controlled Primary invasive malignant neoplasm of right female breast s/p lumpectomy- 08/2018; s/p XRT (2018)- no current issues- no limb restriction Surgical History (Updated 01/06/21 @ 08:44 by Vivien Perez PA-C) History of cataract surgery Left (2020) History of colonoscopy 2020 History of right cataract surgery History of tonsillectomy History of total hip arthroplasty Left hip replacement (05/2019): post-op confusion per discharge summary Right hip replacement (7/2/20): SAB at L3/L4 x1 attempt at [facility] S/P epidural steroid injection Status post ectopic Status post right breast lumpectomy "partial mastectomy"-2019 Family History Mother , age 86 CVA No problems noted. Father , age 75 surgical complications prostate operation No problems noted. Son No problems noted. 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 Beliefs That Will Affect Care: None marital status: / Current Living Situation: Family Current Living Situation Comment: lives with Talon stuart current occupation: [employer] Feels Safe at Home: Yes Childhood Exposure to Second-Hand Smoke: Yes caffeine: Yes (4 cups per day) during the past year weight has: remained stable Dental Care, Regularly: Yes Physical Activity Frequency: Other Physical Activity Frequency Comment: not doing any exercising due to hip pain Seatbelt Use: always Sunscreen Use: Yes Assistive Devices: Cane and Glasses Physical Exam Physical Exam: Physical Exam: (relevant to the procedure, including heart and lung evaluation) General: Alert and oriented x3 with proper grooming and hygiene Eyes: Pupils are equal and reactive to light with accommodation. Extraocular movements are intact Throat: Deferred due to COVID-19 precautions Cardiac: Regular rate and rhythm with no murmurs or gallops appreciated Lungs: Clear to auscultation throughout with no wheezing, rales or rhonchi Abdomen: Mildly obese, nondistended, nontender with NABS Extremities: Left knee; range of motion is from 0 degrees of extension to 120 degrees of flexion. Patient has audible crepitation with passive range of motion. She experiences medial and lateral joint tenderness when the knee is palpated in flexed position. Her patella is not mobile due to arthritic change within the patellofemoral joint. She has visible valgus malalignment. There is no varus or valgus laxity. Negative AP drawer sign Carmelo test. Patient is neurovascularly intact in left lower extremity. Neuro: Cranial nerves II through XII are intact with no motor or sensory deficit Skin: Normal in appearance no open skin areas or discharge Results & Data ([facility]) Diagnostic Findings Studies (relevant to the procedure): x-rays done include a standing long leg alignment film and 3 views of the left knee. These demonstrate patient to be in valgus alignment with the weightbearing axis passing through the lateral compartment on the left and along the lateral tibial spine on the right. She has cixd-lt-iocd arthritis in the lateral compartment of the knee on the left and near spac-zu-nagp on the right.
--- NOTE | 2021-03-28 09:51 | PAT Medication Instructions ---
Medication Instructions Date of Service March 28, 2021 Home Medications calcium 600 mg-D3 800 unit-mag11 50 lb-noty-fgqbnj-angelita-s.borat tablet (Caltrate 600-D Plus Minerals) 1 tab PO BID cinnamon bark 500 mg capsule (Cinnamon) 1,000 mg PO QAM clindamycin phosphate 1 % topical swab 1 appln TOP HS PRN diclofenac sodium 1 % gel topical kit 2 gm TOP BID PRN multivitamin 1 cap PO QAM omega-3 fatty acids 1,000 mg capsule (Fish Oil Concentrate) 1,000 mg PO QAM tamoxifen 20 mg tablet 20 mg PO QAM acetaminophen 650 mg tablet,extended release (Tylenol 8 Hour) 650 mg PO TID PRN adapalene 0.1 % topical cream (Differin) 1 applic TOPICAL DAILY aspirin 81 mg tablet,delayed release (Aspirin Low Dose) 81 mg PO QAM gabapentin 300 mg capsule 300 mg PO QAM lisinopril 20 mg-hydrochlorothiazide 12.5 mg tablet 1 tab PO QAM turmeric root extract 500 mg capsule 500 mg PO QAM celecoxib 200 mg capsule (Celebrex) 200 mg PO QAM PRN ASK your surgeon for instructions celecoxib 200 mg capsule (Celebrex) 200 mg PO QAM PRN ASK your prescriber and surgeon tamoxifen 20 mg tablet 20 mg PO QAM STOP taking 2 weeks before surgery turmeric root extract 500 mg capsule 500 mg PO QAM omega-3 fatty acids 1,000 mg capsule (Fish Oil Concentrate) 1,000 mg PO QAM cinnamon bark 500 mg capsule (Cinnamon) 1,000 mg PO QAM STOP taking 24 hours before surgery adapalene 0.1 % topical cream (Differin) 1 applic TOPICAL DAILY clindamycin phosphate 1 % topical swab 1 appln TOP HS PRN diclofenac sodium 1 % gel topical kit 2 gm TOP BID PRN DO NOT take the morning of surgery lisinopril 20 mg-hydrochlorothiazide 12.5 mg tablet 1 tab PO QAM multivitamin 1 cap PO QAM calcium 600 mg-D3 800 unit-mag11 50 fq-jemc-pusamh-angelita-s.borat tablet (Caltrate 600-D Plus Minerals) 1 tab PO BID Take morning of surgery With a small sip of water, OTHERWISE NOTHING TO EAT OR DRINK AFTER MIDNIGHT: gabapentin 300 mg capsule 300 mg PO QAM acetaminophen 650 mg tablet,extended release (Tylenol 8 Hour) 650 mg PO TID PRN (okay to take up to 4 hours prior to surgery if needed). aspirin 81 mg tablet,delayed release (Aspirin Low Dose) 81 mg PO QAM (Unless told otherwise by surgeon) Take evening before surgery acetaminophen 650 mg tablet,extended release (Tylenol 8 Hour) 650 mg PO TID PRN (if needed) calcium 600 mg-D3 800 unit-mag11 50 ty-gfdt-qqndci-angelita-s.borat tablet (Caltrate 600-D Plus Minerals) 1 tab PO BID Other Notes If you have any questions please call us at [phone] or [phone] or [phone] or [phone]
--- NOTE | 2021-04-04 15:12 | Anesthesiology Consultation ---
Date of Service April 04, 2021 Assessment & Plan (1) Encounter for pre-operative examination: - awaiting final PCP clearance after lab review. - PCP office visit 03/15/2021: "...pre op exam. Currently has left total knee arthroplasty scheduled with Dr. Interiano on 04/14/21 at [facility]. Was previously schedule for Dec 2020 but was cancelled due to COVID...Pre-op exam-Appropriate candidate for left total knee arthroplasty pending lab review..." - Outpatient joint assessment: Patient is currently scheduled for inpatient pathway. If re-evaluated pending system levels during current pandemic/surgeon requests outpatient pathway, patient is not a recommended candidate for outpatient joint program from anesthesia standpoint due to family concerns regarding h/o post-op confusion. - COVID screening: Per assessment on 04/04/2021: Travel screen negative, no known COVID-19 positive contacts or current COVID-19 related symptoms in past 2 weeks. Patient vaccinated. Surgeon arranging preop COVID testing, scheduled 04/12/2021. Awaiting results. Chart Review Chart Review: Acceptable Risk for Surgery (pending medical clearance) and Patient seen in Pre Admission Testing Teaching & Discussion Pre-Anesthesia Teaching/Discussion Notes: Instructed NPO after midnight before surgery, except medications with 15 cc of water. Medication instructions provided according to the PAT guidelines. History Surgery Operation Date: 04/14/21 07:00 Proposed Procedures p Left Total Knee Arthroplasty - Arsh Interiano MD Height/Weight Height: 5 ft Weight: 73.7 kg Allergies Allergy/AdvReac Type Severity Reaction Status Date / Time ciprofloxacin [From Cipro] Allergy Intermediate hives Verified 03/22/21 15:40 ibuprofen Allergy Intermediate rash Verified 03/22/21 15:40 nickel Allergy Mild itching/kely Uncoded 03/22/21 15:40 h Medications Home Medications Medication Instructions Recorded Confirmed Last Taken calcium 600 mg-D3 800 unit-mag11 1 tab PO BID 10/23/18 03/22/21 06/15/20 50 rv-ayqm-izefzr-angelita-s.borat tablet (Caltrate 600-D Plus Minerals) cinnamon bark 500 mg capsule 1,000 mg PO QAM cap 10/23/18 03/22/21 06/15/20 (Cinnamon) clindamycin phosphate 1 % topical 1 appln TOP HS PRN ea 10/23/18 03/22/21 09/30/19 21:00 swab diclofenac sodium 1 % gel topical 2 gm TOP BID PRN ea 10/23/18 03/22/21 06/16/20 07:00 kit multivitamin 1 cap PO QAM 10/23/18 03/22/21 06/15/20 omega-3 fatty acids 1,000 mg 1,000 mg PO QAM 11/18/18 03/22/21 06/15/20 capsule (Fish Oil Concentrate) tamoxifen 20 mg tablet 20 mg PO QAM 04/09/19 03/22/21 06/16/20 07:00 acetaminophen 650 mg 650 mg PO TID PRN 09/09/19 03/22/21 06/16/20 07:00 tablet,extended release (Tylenol 8 Hour) adapalene 0.1 % topical cream 1 applic TOPICAL DAILY 11/14/19 03/22/21 Unknown (Differin) aspirin 81 mg tablet,delayed 81 mg PO QAM 05/24/20 03/22/21 06/15/20 release (Aspirin Low Dose) gabapentin 300 mg capsule 300 mg PO QAM 05/24/20 03/22/21 06/15/20 lisinopril 20 1 tab PO QAM 05/24/20 03/22/21 06/16/20 07:00 mg-hydrochlorothiazide 12.5 mg tablet turmeric root extract 500 mg 500 mg PO QAM 05/24/20 03/22/21 06/15/20 capsule celecoxib 200 mg capsule (Celebrex) 200 mg PO QAM PRN 11/11/20 03/22/21 Unknown Past Medical History Medical History Arthritis Hyperlipidemia no meds Hypertension Well controlled, stable Obesity Prediabetes diet controlled Primary invasive malignant neoplasm of right female breast s/p lumpectomy- 08/2018; s/p XRT (2018)- no current issues- no limb restriction Patient denies h/o stroke, seizures, heart attack, heart failure, blood clots or blood transfusions. Exercise / Class Metabolic Activity II 4-5 Yardwork/Stairs/Walk up hill (mild SOB with exertion, chronic per patient with reduced activity due to pain, denies CP) Past Family History Family History Mother , age 86 CVA No problems noted. Father , age 75 surgical complications prostate operation No problems noted. Son No problems noted. Other No family history of adverse response to anesthesia Past Surgical History Surgical History History of cataract surgery Left (2020) History of colonoscopy 2020 History of right cataract surgery History of tonsillectomy History of total hip arthroplasty Left hip replacement (05/2019): post-op confusion per discharge summary Right hip replacement (10/02/19): SAB at L3/L4 x1 attempt at [facility] S/P epidural steroid injection Status post ectopic Status post right breast lumpectomy "partial mastectomy"-2018 Past Anesthesia History No Hx of Anesthesia Complications and No Family Hx of Anesthesia Complications History of PONV No Hx of PONV and No Hx of Motion Sickness Social History Smoking Status: Former smoker tobacco type: cigarettes Smoking cigarettes per day: 1/2 pack per day x 12 years Do You Dip or Chew Tobacco: No Smoking End Date: QUIT AGE 33 Hx Alcohol Use: Yes Alcohol type: beer alcohol intake frequency: 0-2 drinks per day Hx Substance Use: No substance use type: does not use Review of Systems Patient denies chest pain, shortness of breath, snoring, witnessed apneas, reflux, fever, chills, cough, wheezing, or palpitations. Physical Exam Vital Signs Vitals BP 118/76 P 76 TEMP 97.6 SP02 96% on RA RESP 17 Physical Full cervical extension range of motion without pain Full TMJ range of motion TMD 3.5 finger breaths Mallampati Score 3, small oral opening Dentition: intact, left upper crown, denies loose, missing or chipped teeth; bridges, implants or dentures Lungs: normal respiratory effort. Clear throughout to auscultation, no adv entitious breath sounds Cardiac: regular rate and rhythm, no murmurs noted Carotid arteries: negative bruit bilat Extremities: trace pitting edema distal lower extremities bilat (nonerythematous, nontender, normal temperature) chronic per pt without change or worsening, reports monitoring by PCP Lab Results Anesthesia Preop Results Results Anesthesia Widget: WBC 7.15 K/uL (4.8-10.8) 04/04/21 Hgb 12.5 g/dL (12.0-16.0) 04/04/21 Hct 37.5 % (37-47) 04/04/21 Plt 291 K/uL (130-400) 04/04/21 Na 136 mmol/L (136-145) 04/04/21 K 4.4 mmol/L (3.5-5.1) 04/04/21 Cl 104 mmol/L (98-107) 04/04/21 CO2 28 mmol/L (21-32) 04/04/21 BUN 18 mg/dl (7-18) 04/04/21 Creat 0.79 mg/dl (0.6-1.2) 04/04/21 Glucose Level 102 mg/dl (70-99) H 04/04/21 PT 10.6 Seconds (9.0-12.0) 04/04/21 INR 1.0 (0.9-1.1) 04/04/21 HA1c 5.9 % (4.5-5.6) H 04/04/21 Urine Color Yellow 04/04/21 Urine Appearance Clear (Clear) 04/04/21 Urine pH 7.0 (4.5-7.5) 04/04/21 Urine Specific [place] 1.020 (1.000-1.030) 04/04/21 Urine Protein Negative (Negative) 04/04/21 Urine Glucose (UA) Negative (Negative) 04/04/21 Urine Ketones Negative (Negative) 04/04/21 Urine Blood Negative (Negative) 04/04/21 Urine Nitrite Negative (Negative) 04/04/21 Urine Bilirubin Negative (Negative) 04/04/21 Urine Urobilinogen Negative (Negative) 04/04/21 Urine Leukocyte Esterase Negative (Negative) 04/04/21 Blood Type O Positive 04/04/21 Antibody Screen NEGATIVE 04/04/21 Testing Electrocardiogram Date: 01/05/21 Normal sinus rhythm, rate 63 bpm. Normal ECG When compared with ECG of 14-MAY-2019 16:19, No significant change was found Confirmed by Manish Bautista. Chest X-Ray Date: 04/04/21 No acute chest disease.
--- NOTE | 2021-04-04 15:58 | History & Physical Report ---
Date of Service April 04, 2021 Assessment & Plan (1) Osteoarthritis of left knee: Plan: PRE-OP Diagnosis: Left knee arthritis, genu valgum Planned Procedure: Left total knee arthroplasty Plan: Patient is scheduled to undergo this procedure at the [facility] Dr. Arsh Interiano on April 14, 2021. Risks and complications of the procedure such as: Infection, bleeding, pain, scarring, nerve blood vessel damage, weakness, wound problems, stiffness, incomplete relief of symptoms, hardware failure, hardware loosening, wear, fracture, tendon or ligament injury, blood clots, embolism, heart attack, stroke and were explained the patient had a visit today. Form consent from the procedure was obtained. Patient also understands risks of proceeding with surgical intervention during the COVID- pandemic. Currently she is asymptomatic and understands that she will need to be tested prior to surgery. Patient states that she saw her primary care provider Dr. Sivler's PA in late March for her medical clearance. Patient is scheduled to meet with anesthesia later today and while there she will obtain a CBC with differential, complete metabolic panel, PT/INR, blood type and screen, urinalysis, urine culture and sensitivity, hemoglobin A1c and a nasal culture for MRSA. EKG is up-to-date. During today's visit we reviewed the total knee packet, discussed discharge planning and in-home physical therapy for the first 2 weeks postoperatively. Advised the patient that I will provide her with prescriptions for pain medication upon discharge from the hospital. She states she has a walker she will bring with her on the day of procedure. Patient does have a nickel allergy so we will use [employer] Oxinium products. Patient is scheduled for 2-week postoperative follow-up with myself on April 29 at 1 PM patient verbalized understanding of all information provided during today's visit. She thanks for the care that she received. If she has questions or concerns should arise prior to her surgery, she will contact clinic. History of Present Illness Chief Complaint: Chief Complaint: Left knee pain Primary Care Provider: Arsh Silver MD History of Present Illness (including history relevant to procedure): This 75-year-old female presents the clinic today for preoperative history and physical. Patient was initially scheduled to undergo this procedure back in December 2020 but her surgery was canceled due to the COVID-19 pandemic. Patient states she has a longstanding history of left knee pain. She states that she occasionally uses Celebrex. She states the knee is becoming more problematic and affecting her ability to walk long distances due to the pain she experiences. Patient states she is ready to undergo total knee arthroplasty so that she can regain her normal function and partake in activities that she used to. Review Of Systems: A 12 point review of systems performed is unremarkable except for those things stated in the HPI past medical history. Past Medical History: Problems: Osteoarthritis of left knee Dressing change or removal, surgical wound Osteoarthritis of right hip Status post total replacement of left hip Osteoarthritis of left hip Preop examination LBP (low back pain) Knee pain HTN (hypertension) Spondylolisthesis Procedure History Procedure Procedure Date Comments Wrist surgery, left 1998 Ectopic 1980 Tonsillectomy Right and Left total hip arthroplasty 1969 2019 Allergies and Sensitivities: Nickel(rash) ibuprofen(Hives) Cipro(Hives) Current Home Meds: (Last Updated 01/05 10:14) acetaminophen amoxicillin (amoxicillin 500 mg oral capsule) 2,000 mg PO As indicated one hour before dental and other procedures as directed aspirin (Aspir 81) calcium citrate (calcium (as calcium citrate) 250 mg oral tablet) celecoxib (CeleBREX 200 mg oral capsule) 200 mg PO Daily PRN: as needed for pain cinnamon clindamycin topical (clindamycin 1% topical swab) diclofenac topical (diclofenac 1% topical gel) gabapentin (gabapentin 300 mg oral capsule) hydroCHLOROthiazide-lisinopril (hydroCHLOROthiazide-lisinopril 12.5 mg-20 mg oral tablet) lisinopril PO Daily multivitamin omega-3 polyunsaturated fatty acids (Fish Oil oral capsule) taMOXIfen (tamoxifen 20 mg oral tablet) turmeric Initial Wt: 04/04 74.4 kg 164 lb Allergies Allergy/AdvReac Type Severity Reaction Status Date / Time ciprofloxacin [From Cipro] Allergy Intermediate hives Verified 03/22/21 15:40 ibuprofen Allergy Intermediate rash Verified 03/22/21 15:40 nickel Allergy Mild itching/kely Uncoded 03/22/21 15:40 h Home Medications Medication Instructions Recorded Confirmed Type calcium 600 mg-D3 800 unit-mag11 1 tab PO BID 10/23/18 03/22/21 History 50 is-fnfn-ydbczt-angelita-s.borat tablet (Caltrate 600-D Plus Minerals) cinnamon bark 500 mg capsule 1,000 mg PO QAM cap 10/23/18 03/22/21 History (Cinnamon) clindamycin phosphate 1 % topical 1 appln TOP HS PRN ea 10/23/18 03/22/21 History swab diclofenac sodium 1 % gel topical 2 gm TOP BID PRN ea 10/23/18 03/22/21 History kit multivitamin 1 cap PO QAM 10/23/18 03/22/21 History omega-3 fatty acids 1,000 mg 1,000 mg PO QAM 11/18/18 03/22/21 History capsule (Fish Oil Concentrate) tamoxifen 20 mg tablet 20 mg PO QAM 04/09/19 03/22/21 History acetaminophen 650 mg 650 mg PO TID PRN 09/09/19 03/22/21 History tablet,extended release (Tylenol 8 Hour) adapalene 0.1 % topical cream 1 applic TOPICAL DAILY 11/14/19 03/22/21 History (Differin) aspirin 81 mg tablet,delayed 81 mg PO QAM 05/24/20 03/22/21 History release (Aspirin Low Dose) gabapentin 300 mg capsule 300 mg PO QAM 05/24/20 03/22/21 History lisinopril 20 1 tab PO QAM 05/24/20 03/22/21 History mg-hydrochlorothiazide 12.5 mg tablet turmeric root extract 500 mg 500 mg PO QAM 05/24/20 03/22/21 History capsule celecoxib 200 mg capsule (Celebrex) 200 mg PO QAM PRN 11/11/20 03/22/21 History Past Med/Surg History Medical History Arthritis Hyperlipidemia no meds Hypertension Well controlled, stable Obesity Prediabetes diet controlled Primary invasive malignant neoplasm of right female breast s/p lumpectomy- 08/2018; s/p XRT (2018)- no current issues- no limb restriction Surgical History History of cataract surgery Left (2020) History of colonoscopy 2020 History of right cataract surgery History of tonsillectomy History of total hip arthroplasty Left hip replacement (05/2019): post-op confusion per discharge summary Right hip replacement (10/02/19): SAB at L3/L4 x1 attempt at [facility] S/P epidural steroid injection Status post ectopic Status post right breast lumpectomy "partial mastectomy"-2019 Family History Mother , age 86 CVA No problems noted. Father , age 75 surgical complications prostate operation No problems noted. Son No problems noted. Other No family history of adverse response to anesthesia Social History Smoking Status: Former smoker Age Started Using Tobacco: 21; Age Quit Using Tobacco: 33; packs per day: 0.5; Years Smoked: 12; Cigarettes Per Day: 1/2 pack per day x 12 years; Number of Years Since Quit: 40; Second Hand Exposure: No; Hx Alcohol Use: Yes Alcohol type: beer Hx Substance Use: No Preferred Language: [place] Communication Ability: Effective Visual Impairment: No Limitations Hearing Ability: Normal Toll Service Observer Required: No Beliefs That Will Affect Care: None marital status: / Current Living Situation: Family Current Living Situation Comment: lives with sonTalon current occupation: [employer] Feels Safe at Home: Yes Childhood Exposure to Second-Hand Smoke: Yes caffeine: Yes (4 cups per day) during the past year weight has: remained stable Dental Care, Regularly: Yes Physical Activity Frequency: Other Physical Activity Frequency Comment: not doing any exercising due to hip pain Seatbelt Use: always Sunscreen Use: Yes Assistive Devices: Cane and Glasses Review of Systems All systems reviewed & are unremarkable except as noted in Subjective Physical Exam Physical Exam: Physical Exam: (relevant to the procedure, including heart and lung evaluation) General: Alert and oriented x3 with proper grooming and hygiene Eyes: Pupils are equal and reactive to light with accommodation. Extraocular movements are intact Throat: Deferred due to COVID-19 precautions Cardiac: Regular rate and rhythm with no murmurs or gallops appreciated Lungs: Clear to auscultation throughout with no wheezing, rales or rhonchi Abdomen: Mildly obese, nondistended, nontender with NABS Extremities: Left knee; range of motion is from 2 degrees of extension to 118 degrees of flexion. Patient has audible crepitation with passive range of motion. She experiences medial and lateral joint tenderness when the knee is palpated in flexed position. Her patella is not mobile due to arthritic change within the patellofemoral joint. She has visible valgus malalignment. There is no varus or valgus laxity. Negative AP drawer sign Carmelo test. Patient is neurovascularly intact in left lower extremity. Neuro: Cranial nerves II through XII are intact with no motor or sensory deficit Skin: Normal in appearance no open skin areas or discharge Results & Data ([facility]) Diagnostic Findings Studies (relevant to the procedure): x-rays done include a standing long leg alignment film and 3 views of the left knee. These demonstrate patient to be in valgus alignment with the weightbearing axis passing through the lateral compartment on the left and along the lateral tibial spine on the right. She has jbig-rf-ipha arthritis in the lateral compartment of the knee on the left and near xawm-za-caff on the right.
[~2021-04-14 05:19] MED LIST changes: -ACETAMINOPHEN 500 MG TAB PO SCH; -BUPIVACAINE 0.5 % 5 MG/1 ML PF 10ML VIAL ONE; -CEFAZOLIN 2000MG 2,000 MG/15 ML SYR IV SCH; -FAMOTIDINE 20 MG TAB PO SCH; -LR 500ML BOLUS, THEN 15ML/HR IV SCH; -LR 60ML/HR IV SCH; -METOCLOPRAMIDE HCL 10 MG TABLET PO SCH; -ROPIVACAINE 0.5% HCL/PF 150 MG, BUPIVACAINE 0.5% MPF 30 ML, EPINEPHrine 0.15 MG, Ketoro... INFIL SCH; +ROPIVACAINE 0.5% HCL/PF 150 MG, BUPIVACAINE 0.75% MPF 20 ML, EPINEPHrine 0.15 MG, Ketor... INFIL SCH; -SCOPOLAMINE 1.5 MG TDSY TD SCH; -TRAMADOL HCL 50 MG TABLET PO SCH; -TRANEXAMIC ACID 1,000 MG **IV Intra-op IV SCH; -TRANEXAMIC ACID 1,000 MG **IV Pre-op IV SCH; +[UNRECOGNIZED DRUG - REMARK] SCH; -dexAMETHasone 4 MG TAB PO SCH
[2021-04-14] MEDS ORDERED: Scopolamine 1 MG TDSY TD SCH (06:00)
[2021-04-14] MEDS ORDERED: traMADol HCL 50 MG TABLET PO SCH (06:00)
[2021-04-14] MEDS ORDERED: LR 60ML/HR IV SCH (06:00)
[2021-04-14] MEDS ORDERED: METOCLOPRAMIDE HCL 10 MG TABLET PO SCH (06:00)
[2021-04-14] MEDS ORDERED: TRANEXAMIC ACID 1,000 MG **IV Pre-op IV SCH (06:00)
[2021-04-14] MEDS ORDERED: dexAMETHasone 4 MG TAB PO SCH (06:00)
[2021-04-14] MEDS ORDERED: ROPIVACAINE 0.5% HCL/PF 150 MG, BUPIVACAINE 0.75% MPF 20 ML, EPINEPHrine 30MG/30ML (OR ... INSTIL SCH (06:00)
[2021-04-14] MEDS ORDERED: ROPIVACAINE 0.5% HCL/PF 150 MG, BUPIVACAINE 0.75% MPF 20 ML, EPINEPHrine 0.15 MG, Ketor... INFIL SCH (06:00)
[2021-04-14] MEDS ORDERED: FAMOTIDINE 20 MG TAB PO SCH (06:00)
[2021-04-14] MEDS ORDERED: LR 500ML BOLUS, THEN 15ML/HR IV SCH (06:00)
[2021-04-14] MEDS ORDERED: TRANEXAMIC ACID 1,000 MG **IV Intra-op IV SCH (06:00)
[2021-04-14] MEDS ORDERED: ACETAMINOPHEN 500 MG TAB PO SCH (06:00)
[2021-04-14] MEDS ORDERED: ceFAZolin 2000MG 2,000 MG/15 ML SYR IV SCH (06:00)
[2021-04-14] MEDS ORDERED: PROPOFOL IV EMULSION 10 MG/ML 20 ML VIAL IV ONE ×2 (06:27→07:31)
[2021-04-14] MEDS ORDERED: LIDOCAINE 2% 2 ML VIAL/AMP(20MG/ML) INFIL ONE (06:27)
[2021-04-14] MEDS ORDERED: fentaNYL citrate 100 MCG/2 ML VIAL ONE (06:27)
[2021-04-14] MEDS ORDERED: MIDAZOLAM HCL 1 MG/ML 2ML VIAL ONE (06:27)
[2021-04-14] MEDS ORDERED: BUPIVACAINE 0.5 % 5 MG/1 ML PF 10ML VIAL ONE (06:29)
[2021-04-14] MEDS ORDERED: BUPIVACAINE 0.25% 30 ML VIAL ONE (06:29)
--- NOTE | 2021-04-14 06:53 | History & Physical Bridge Note ---
Date of Service April 14, 2021 History & Physical Bridge Note I have examined the patient, reviewed the History & Physical and in the interval since the performance of the History & Physical I have noted the following changes of clinical significance: no changes noted
[2021-04-14] MEDS ORDERED: ePHEDrine sulfate 50 MG/ML AMP ONE (07:18)
[2021-04-14] MEDS ORDERED: ePHEDrine sulfate 50 MG/ML AMP IV PRN (08:42)
[2021-04-14] MEDS ORDERED: ATROPINE SULFATE 0.1 MG/ML 10ML SYR IV PRN (08:42)
--- NOTE | 2021-04-14 09:09 | Post Operative Brief Note ---
Immediate Post Op Note v1 Date of Surgery April 14, 2021 Pre & Post Diagnosis Operation Date: 04/14/21 07:00 Pre-Op Diagnosis: Left Knee Arthritis, Genu Valgum Post-Op Diagnosis: Left Knee Arthritis, Genu Valgum I identified the patient and participated in the time-out.: Yes Procedure Operation Date: 04/14/21 07:00 Actual Procedures p Left Total Knee Arthroplasty, Cemented(Left) 22 modifier added due to increased complexity and risk of complications secondary to her genu valgum - Arsh Interiano MD Surgeon Arsh Interiano MD Hematology Supervisor Alli Cuadra MD and FORTINO Clay PA-C Estimated Blood Loss 100 Findings Consistent with Post-Op Diagnosis Anesthesia Type Spinal MAC Complications none Disposition Disposition: Recovery Room
[2021-04-14] MEDS ORDERED: METOCLOPRAMIDE HCL INJ 5 MG/ML 2 ML VIAL IV PRN (09:20)
[2021-04-14] MEDS ORDERED: NALOXONE HCL 0.4 MG/1 ML VIAL/CARP IV PRN (09:20)
[2021-04-14] MEDS ORDERED: ALUMINUM/MAGNESIUM SUSP 30 ML UDC PO PRN (09:20)
[2021-04-14] MEDS ORDERED: MAGNESIUM HYDROXIDE SUSP 30 ML UDC PO PRN (09:20)
[2021-04-14] MEDS ORDERED: bisacodyL 10 MG SUPP PR PRN (09:20)
[2021-04-14] MEDS ORDERED: oxyCODONE HCL IR 5 MG TAB (IMMEDIATE RELEASE) PO PRN (09:20)
[2021-04-14] MEDS ORDERED: ONDANSETRON INJ 2 MG/ML 2 ML VIAL IV PRN (09:20)
[2021-04-14] MEDS ORDERED: diphenhydrAMINE 50 MG/ML VIAL IV PRN (09:20)
--- NOTE | 2021-04-14 09:20 | Operative Report ---
Post Operative Report Pre & Post Diagnosis Operation Date: 04/14/21 07:00 Pre-Op Diagnosis: Left Knee Arthritis, Genu Valgum Post-Op Diagnosis: Left Knee Arthritis, Genu Valgum I identified the patient and participated in the time-out.: Yes Procedure Operation Date: 04/14/21 07:00 Actual Procedures p Left Total Knee Arthroplasty, Cemented(Left) - Arsh Interiano MD Surgeon Myra Interiano Database Administration Manager Alli Cuadra MD and FORTINO Clay PA-C Estimated Blood Loss 100 Findings Consistent with Post-Op Diagnosis Consistent with post op diagnosis Specimens No specimens Description of Procedure I participated in prepping dressing and assisted Dr. Interiano during the procedure. Please see Dr. Interiano note. I attest to the content of the Intraoperative Record and any orders documented therein. Any exceptions are noted below. Supervising Physician Co-Signing Physician Notes Dr. Interiano
--- NOTE | 2021-04-14 09:20 | Operative Report ---
Post Operative Report Pre & Post Diagnosis Operation Date: 04/14/21 07:00 Pre-Op Diagnosis: Left Knee Arthritis, Genu Valgum Post-Op Diagnosis: Left Knee Arthritis, Genu Valgum I identified the patient and participated in the time-out.: Yes Procedure Operation Date: 04/14/21 07:00 Actual Procedures p Left Total Knee Arthroplasty, Cemented(Left) - Arsh Interiano MD Surgeon Arsh Interiano MD Spool Cleaner Alli Cuadra MD and FORTINO Clay PA-C Estimated Blood Loss 100 Findings Consistent with Post-Op Diagnosis Specimens none Description of Procedure I was present during the entire procedure assisting with positioning, prepping, draping, wound retraction, wound closure, dressing and immobilizer placement. Fellow also present. I served as an extra set of hands during the case. Please see Dr. Interiano procedure note for specifics of the case. I attest to the content of the Intraoperative Record and any orders documented therein. Any exceptions are noted below.
[2021-04-14] MEDS ORDERED: NON-FORMULARY MEDICATION (Acetaminophen [Tylenol 8 Hour] 650 mg Tablet Extended Release) PO PRN (09:25)
[2021-04-14] MEDS ORDERED: CeleBREX 200 MG CAP PO PRN (09:25)
--- NOTE | 2021-04-14 10:06 | XRay Report ---
XR knee LT 1 or 2V routine CLINICAL HISTORY: Surgical Post Op. Status post total knee replacement COMPARISON STUDY: 01/05/2021 TECHNIQUE: 2 left knee views FINDINGS: The patient is status post total knee replacement. The prosthetic components are in anatomi c alignment with no acute abnormality seen. Air is present within the soft tissues from the procedure . Skin senia are seen anteriorly. IMPRESSION: Status post total knee replacement ACT 112: Negative or not required by law. Electronically signed by: Chris Abdi M.D. 04/14/2021 10:05 AM
--- NOTE | 2021-04-14 10:11 | Operative Report (OR) ---
DATE OF SURGERY: 04/14/2021. PREOPERATIVE DIAGNOSIS: Left knee osteoarthritis and genu valgum. POSTOPERATIVE DIAGNOSES: Left knee osteoarthritis and genu valgum. OPERATION PERFORMED: Left total knee arthroplasty. A 22 modifier should be added due to the increased complexity of the case and the increased risk of complications secondary to her genu valgum . SURGEON: Arsh Interiano MD. TECHNICAL INTERN: Alli Cuadra MD, and Lindsay Clay PA-C. ESTIMATED BLOOD LOSS: 100 mL. SPECIMENS: Bone and soft tissue contents from the left knee. COMPLICATIONS: None. IMPLANTS: 1. A [employer] knee, size 3 left femur. 2. Size 3 left tibia. 3. Size 3-4 insert with 10 mm thickness poly. 4. 29 diameter oval patella. INDICATIONS FOR PROCEDURE: The patient is a 75-year-old female with left knee pain refractory to conservative management. X-rays demonstrate dmid-zv-izlz arthritis with genu valgum alignment as well as a flexion contracture noted on exam. SHE HAS AN ALLERGY TO NICKEL requiring use of an Oxinium non-nickel containing component. I had a long discussion with her about the risks and benefits of surgery, alternatives to surgery, and expected outcomes. After reviewing all these, she elected to proceed with surgery. All questions were answered, informed consent was signed. OPERATIVE FINDINGS: Severe left knee osteoarthritis, valgus alignment, hypoplastic lateral condyle. Posterior stabilized total knee arthroplasty was performed. DESCRIPTION OF OPERATION: The patient was identified in the preoperative holding area where her surgical site was marked. She was given an adductor canal block and a spinal, then brought back to the main operating room. She was placed on the operating table and intravenous sedation was administered. IV antibiotics and tranexamic acid were given IV. All bony prominences were padded. Perioperative antibiotics were administered. Exam under anesthesia was performed. Range of motion was 8 - 125. Collateral ligaments were stable at 0 and 30 degrees of knee flexion. She was prepped and draped in the usual sterile fashion. Prior to incision, a multidisciplinary timeout was called. All in the room were in agreement. We began by exsanguinating the limb with an Esmarch bandage. Tourniquet was inflated to 250 mmHg. A 14 cm long incision was made starting 3 fingerbreadths above the superior pole of the patella and extending over the anterior aspect of the patella to just medial to the tibial tubercle. I dissected down through the subcutaneous tissues to the level of the fascia. Full thickness flaps were raised above the fascia. A medial parapatellar arthrotomy was then performed. Half the fat pad was excised. The contents of the suprapatellar pouch were removed with electrocautery. The patella was everted and held with two towel clips. The thickness was measured at 21 mm. The patella was resected down to a thickness of 13 mm. A 29 diameter oval patella fit nicely. The guide was clamped and the 3 drill holes were placed. Trial polyethylene patella was placed and remeasured thickness to 21 mm. Next, the patella was everted, and the knee was flexed up. Retractors were placed. Osteophytes were removed. The ACL and PCL were removed from the notch with cautery. Intramedullary drill guide was then placed into the femur. The distal femoral cutting jig was set at 5 degrees and pinned into position. The cutting jig was then moved up to allow an additional 2 mm bony resection given her flexion contracture of her knee and her valgus knee. The distal femoral cut was made without difficulty. We then exposed the proximal tibia. The lateral meniscus and posterior horn of the medial meniscus were excised. Osteophytes were removed from the proximal tibia. Tibial cutting jig was then placed to resect 9 mm off the less involved medial side. A tibial cut was then made. The knee was brought into full extension. Lamina box repairer was placed. She had a rectangular extension gap. The remainder of the medial meniscus was excised. A 10 mm extension block fit nicely allowing her full extension with excellent stability to varus-valgus stress. Next, the knee was flexed back up and the femur was sized. We sized her to a size 4. The size 4 cutting guide was translated anteriorly in order for a chamfer cut to be made of the hypoplastic lateral femoral condyle. We made our saw cuts for a size 4 femur. Flexion gap was perfect with the 10 mm thickness polyethylene trial. However, the femoral trial was somewhat prominent along the superior trochlea, so I decided to downsize her to a 3. Saw cuts were repeated, removing predominently anterior bone. Now, the size 3 femoral trial component sat nicely along the anterior cortex of the femur without any overhang. We then pinned the femoral trial and performed our box reaming and chiseling. The trial tibial component was then placed with a 10 mm thickness poly. She was able to get full extension,flexed to 130 degrees, and had excellent stability to varus and valgus throughout a full range of motion. At this point, the femoral trial was removed. The tibia was exposed and the size 3 tibia was pinned in appropriate position centered on the medial one third of the tibial tubercle and externally rotated. The punch was placed. The instruments were then removed and the cement was mixed on the back table while we irrigated out all of the bony cut surfaces. While cement was being mixed, we injected the posterior capsule as well as the periosteum of the distal femur and proximal tibia with the periarticular injection cocktail. Once the cement was ready, we cemented on the femur first. Excess cement was removed with the Paton elevator and hemostat. The tibia was then subluxated forward and tibial component was cemented. Again, excess cement was removed. The real 10 mm thickness poly was placed and locked into the tray nicely. Knee was brought into full extension. The patella was cemented on. Patella was clamped. Excess cement was again removed. Knee was irrigated out with sterile Betadine, which was allowed to set for 3 minutes. This was then irrigated out. We then brought the knee through full range of motion. There was a good patellar tracking with no need for a lateral release. She had a range of motion from 0 up to 130 degrees. Excellent stability throughout. At this point, the tourniquet was let down. Hemostasis was ensured. The medial patellar retinaculum was closed with 0 Vicryl [id number]-ag-gvhcw sutures. The quad tendon was run with a #1 Ethibond. The patellar tendon and fascial layer down to the proximal tibia was run with a #1 Ethibond as well. The subcutaneous layer was closed with 0 Vicryl sutures. A 2-0 Vicryl interrupted buried sutures were used through the deep dermal layer. Zipline and Dermabond were used for the skin. Sterile dressings were applied. The patient was then transferred to the recovery room after sedation was lifted. POSTOPERATIVE COURSE: The patient will be admitted to the floor for pain control and monitoring. She worked with physical therapy tomorrow. She will be in a knee immobilizer for 48 hours. Aspirin for DVT prophylaxis. Job ID: [id number] [facility]
--- NOTE | 2021-04-14 10:26 | Anesthesiology Progress Note ---
Date of Service April 14, 2021 Anesthesia Post Procedure Vital Signs Vital Signs: Temp Pulse Pulse Resp BP Pulse Ox 04/14/21 10:20 78 16 112/74 95 04/14/21 10:05 80 17 115/70 94 04/14/21 09:55 36.1 C L 59 L 21 116/67 96 04/14/21 09:45 59 L 12 124/53 L 96 04/14/21 09:35 68 18 123/78 100 04/14/21 09:25 81 15 119/69 100 04/14/21 09:19 36.7 C 84 21 125/78 100 04/14/21 05:39 36.8 C 66 20 152/71 H 99 Pain Intensity Left Knee: Pain Intensity: 0 Transfer of Care Handoff Completed per policy Notes Mental Status: alert / awake / arousable and participated in evaluation Nausea / Vomiting: adequately controlled Pain: adequately controlled Airway Patency, RR, SpO2: stable & adequate BP & HR: stable & adequate Hydration State: stable & adequate Neuraxial Anesthesia: was administered and sensory block is resolving Anesthetic Complications: no major complications apparent and Pt Satisfied with anesthetic care
[2021-04-14] MEDS ORDERED: DICLOFENAC SOD 1% GEL 100 GM TUBE EXT PRN (10:52)
[2021-04-14] MEDS: SODIUM CHLORIDE 0.9% 1000ML 1,000 ML IV SCH ×2 (11:15→21:09)
[2021-04-14] MEDS: KETOROLAC TROMETHAMINE 15 MG/ML VIAL IV SCH ×2 (11:42→17:12)
[2021-04-14] MEDS: ACETAMINOPHEN 500 MG TAB PO SCH ×2 (15:05→21:09)
[2021-04-14] MEDS: Scopolamine CHECK PATCH PLACEMENT SCH (15:05)
[2021-04-14] MEDS: ceFAZolin 2000MG 2,000 MG/15 ML SYR IV SCH (15:19)
[2021-04-14] MEDS ORDERED: TRANEXAMIC ACID / 0.7% NACL 1,000 MG/100 ML BAG IV SCH (16:00)
[2021-04-14] MEDS ORDERED: COUGH DROP (SUGAR FREE) LOZ 24 LOZ/1 BOX BUCCAL ONE (21:00)
[2021-04-14] MEDS ORDERED: SENNA 8.6 MG TAB PO SCH (21:00)
[2021-04-14] MEDS ORDERED: COUGH DROP (SUGAR FREE) LOZ 24 LOZ/1 BOX BUCCAL PRN (21:04)
[2021-04-14] MEDS: DOCUSATE SODIUM 100 MG CAP PO SCH (21:09)
[2021-04-14] MEDS: CALCIUM 600MG + VIT D 400 IU TAB PO SCH (21:09)
[2021-04-15] MEDS: KETOROLAC TROMETHAMINE 15 MG/ML VIAL IV SCH ×2 (00:36→05:48)
[2021-04-15] MEDS: ceFAZolin 2000MG 2,000 MG/15 ML SYR IV SCH (00:36)
[2021-04-15] MEDS: Scopolamine CHECK PATCH PLACEMENT SCH ×2 (00:36→08:32)
[2021-04-15] MEDS: ACETAMINOPHEN 500 MG TAB PO SCH (05:48)
[2021-04-15 06:21] LABS: Hematocrit (blood only) 30.4 % (37-47); Hemoglobin 10.1 g/dL (12.0-16.0); Mean Corpuscular Hemoglobin 31.5 pg (25-34); Mean Corpuscular Hgb Conc 33.2 g/dL (32-36); Mean Corpuscular Volume 94.7 fL (80-100); Mean Platelet Volume 9.2 fL (7.4-10.4); Platelet Count 226 K/uL (130-400); RDW Coefficient of Variation 13.3 % (11.5-14.5); RDW Standard Deviation 46.5 fL (36.4-46.3); Red Blood Count 3.21 M/uL (4.2-5.4); White Blood Count 11.18 K/uL (4.8-10.8)
[2021-04-15 06:46] LABS: BUN Creatinine Ratio 26.8 (10-20); Calcium 8.2 mg/dl (8.5-10.1); Creatinine Clr Calc Pharmacy 40.6 ml/min; Est GFR (Non-African American) 48.4 ml/min; Potassium 4.3 mmol/L (3.5-5.1)
[2021-04-15 07:28] VITALS: PULSE 55; TEMP 98.1; O2SAT 97
[2021-04-15] MEDS ORDERED: dexAMETHasone 4 MG TAB PO SCH (08:00)
[2021-04-15] MEDS: DOCUSATE SODIUM 100 MG CAP PO SCH (08:36)
[2021-04-15] MEDS: CALCIUM 600MG + VIT D 400 IU TAB PO SCH (08:36)
[2021-04-15] MEDS ORDERED: GABAPENTIN 300 MG CAP PO SCH (09:00)
[2021-04-15] MEDS ORDERED: TAMOXIFEN CITRATE 10 MG TABLET PO SCH (09:00)
[2021-04-15] MEDS ORDERED: OMEGA-3 (PURIFIED FISH OIL) 1 GM CAP PO SCH (09:00)
[2021-04-15] MEDS ORDERED: NON-FORMULARY MEDICATION (Turmeric Root Extract 500 mg Capsule) PO SCH (09:00)
[2021-04-15] MEDS ORDERED: MULTIVITAMIN TAB PO SCH (09:00)
[2021-04-15] MEDS ORDERED: NON-FORMULARY MEDICATION (Multivitamin capsule) PO SCH (09:00)
[2021-04-15] MEDS ORDERED: CeleBREX 200 MG CAP PO SCH (09:00)
[2021-04-15] MEDS ORDERED: ASPIRIN 81 MG ECTAB PO SCH ×2 (09:00)
[2021-04-15] MEDS ORDERED: LISINOPRIL/HCTZ 20/12.5MG 1 TAB TAB PO SCH (09:00)
--- NOTE | 2021-04-15 09:33 | Orthopedic Progress Note ---
Date of Service April 15, 2021 Assessment & Plan (1) S/P total knee arthroplasty: Plan: PT/OT Keep Silverlon dressing in place Weightbearing as tolerated on left lower extremity with walker assistance and knee immobilizer for the first 48 hours postoperatively. DVT prophylaxis with LOW stockings and aspirin Pain control with p.o. medications Ice with EZ wrap Plan on discharge home today with in-home physical therapy for the first 2 weeks. Follow-up with [facility] orthopedics as previously scheduled. With questions contact our clinic at [phone] Admission and Anticipated Discharge Date Admission Date: April 14, 2021 Subjective This 75-year-old female is day 1 status post left total knee arthroplasty. She states that she is doing very well. She states that her pain is well controlled with p.o. pain medication. Patient denies chest pain, shortness of breath, fever, chills, sweats, lethargy, numbness or tingling in her left lower extremity. Review of Systems Review of Systems: All systems reviewed & are unremarkable except as noted in Subjective Physical Exam Physical Exam: Left knee; outer dressings were removed from the patient's left lower extremity. Silverlon is in place, clean, dry and intact. Patient does have some mild edema but no erythema, ecchymosis, warmth or palpable deformity. She is able to perform an active straight leg raise test. She is able to flex her knee actively to 80 degrees. She is able to actively dorsi and plantarflex her foot without difficulty. She is neurovascularly intact in the left lower extremity. Her peripheral pulses are 2+. Her capillary fill is less than 2 seconds. Results & Data ([facility]) Vital Signs (Past 12 Hours) Vital Signs Temp Pulse Resp BP BP Pulse Ox 04/15/21 07:27 36.7 C 55 L 16 123/76 97 04/15/21 02:11 36.5 C 61 16 97/59 L 96 04/14/21 22:13 36.7 C 58 L 16 115/65 94 Diagnostic Findings Laboratory Results WBC 11.18 K/uL (4.8-10.8) H 04/15/21 05:43 RBC 3.21 M/uL (4.2-5.4) L 04/15/21 05:43 Hgb 10.1 g/dL (12.0-16.0) L 04/15/21 05:43 Hct 30.4 % (37-47) L 04/15/21 05:43 MCV 94.7 fL (80-100) 04/15/21 05:43 MCH 31.5 pg (25-34) 04/15/21 05:43 MCHC 33.2 g/dL (32-36) 04/15/21 05:43 RDW Std Deviation 46.5 fL (36.4-46.3) H 04/15/21 05:43 RDW Coeff of Vincent 13.3 % (11.5-14.5) 04/15/21 05:43 Plt Count 226 K/uL (130-400) 04/15/21 05:43 MPV 9.2 fL (7.4-10.4) 04/15/21 05:43 Sodium 136 mmol/L (136-145) 04/15/21 05:43 Potassium 4.3 mmol/L (3.5-5.1) 04/15/21 05:43 Chloride 105 mmol/L (98-107) 04/15/21 05:43 Carbon Dioxide 26 mmol/L (21-32) 04/15/21 05:43 Anion Gap 5 (3-11) 04/15/21 05:43 BUN 30 mg/dl (6-23) H 04/15/21 05:43 Creatinine 1.12 mg/dl (0.6-1.2) 04/15/21 05:43 Est Cr Clr Drug Dosing 40.6 ml/min 04/15/21 05:43 Est GFR ( Amer) 56.0 ml/min 04/15/21 05:43 Est GFR (Non-Af Amer) 48.4 ml/min 04/15/21 05:43 BUN/Creatinine Ratio 26.8 (10-20) H 04/15/21 05:43 Glucose 108 mg/dl (70-99) H 04/15/21 05:43 POC Glucose 102 mg/dl (70-99) H 04/14/21 05:56 Calcium 8.2 mg/dl (8.5-10.1) L 04/15/21 05:43 Hepatitis C Ab Screen Neg (Neg) 04/15/21 05:43 SARS-CoV-2, RNA, NAAT NEGATIVE (NEGATIVE) 04/14/21 Unknown Impressions Knee X-Ray 04/14/21 09:24 XR knee LT 1 or 2V routine CLINICAL HISTORY: Surgical Post Op. Status post total knee replacement COMPARISON STUDY: 01/05/2021 TECHNIQUE: 2 left knee views FINDINGS: The patient is status post total knee replacement. The prosthetic components are in anatomic alignment with no acute abnormality seen. Air is present within the soft tissues from the procedure. Skin senia are seen anteriorly. IMPRESSION: Status post total knee replacement ACT 112: Negative or not required by law. Electronically signed by: Chris Abdi M.D. 04/14/2021 10:05 AM
--- NOTE | 2021-04-15 09:41 | Discharge Summary ---
Date of Service April 15, 2021 Admission HPI Per Admitting Provider History of Present Illness (including history relevant to procedure): This 75-year-old female presents the clinic today for preoperative history and physical. Patient was initially scheduled to undergo this procedure back in December 2020 but her surgery was canceled due to the COVID-19 pandemic. Patient states she has a longstanding history of left knee pain. She states that she occasionally uses Celebrex. She states the knee is becoming more problematic and affecting her ability to walk long distances due to the pain she experiences. Patient states she is ready to undergo total knee arthroplasty so that she can regain her normal function and partake in activities that she used to. Review Of Systems: A 12 point review of systems performed is unremarkable except for those things stated in the HPI past medical history. Past Medical History: Problems: Osteoarthritis of left knee Dressing change or removal, surgical wound Osteoarthritis of right hip Status post total replacement of left hip Osteoarthritis of left hip Preop examination LBP (low back pain) Knee pain HTN (hypertension) Spondylolisthesis Procedure History Procedure Procedure Date Comments Wrist surgery, left 1997 Ectopic 1981 Tonsillectomy Right and Left total hip arthroplasty 1969 2019 Allergies and Sensitivities: Nickel(rash) ibuprofen(Hives) Cipro(Hives) Current Home Meds: (Last Updated 01/05 10:14) acetaminophen amoxicillin (amoxicillin 500 mg oral capsule) 2,000 mg PO As indicated one hour before dental and other procedures as directed aspirin (Aspir 81) calcium citrate (calcium (as calcium citrate) 250 mg oral tablet) celecoxib (CeleBREX 200 mg oral capsule) 200 mg PO Daily PRN: as needed for pain cinnamon clindamycin topical (clindamycin 1% topical swab) diclofenac topical (diclofenac 1% topical gel) gabapentin (gabapentin 300 mg oral capsule) hydroCHLOROthiazide-lisinopril (hydroCHLOROthiazide-lisinopril 12.5 mg-20 mg oral tablet) lisinopril PO Daily multivitamin omega-3 polyunsaturated fatty acids (Fish Oil oral capsule) taMOXIfen (tamoxifen 20 mg oral tablet) turmeric Initial Wt: 04/04 74.4 kg 164 lb Admission Exam Per Admitting Provider Physical Exam: (relevant to the procedure, including heart and lung evaluation) General: Alert and oriented x3 with proper grooming and hygiene Eyes: Pupils are equal and reactive to light with accommodation. Extraocular movements are intact Throat: Deferred due to COVID-19 precautions Cardiac: Regular rate and rhythm with no murmurs or gallops appreciated Lungs: Clear to auscultation throughout with no wheezing, rales or rhonchi Abdomen: Mildly obese, nondistended, nontender with NABS Extremities: Left knee; range of motion is from 2 degrees of extension to 118 degrees of flexion. Patient has audible crepitation with passive range of motion. She experiences medial and lateral joint tenderness when the knee is palpated in flexed position. Her patella is not mobile due to arthritic change within the patellofemoral joint. She has visible valgus malalignment. There is no varus or valgus laxity. Negative AP drawer sign Carmelo test. Patient is neurovascularly intact in left lower extremity. Neuro: Cranial nerves II through XII are intact with no motor or sensory deficit Skin: Normal in appearance no open skin areas or discharge Principal Diagnosis Left knee osteoarthritis Discharge Exam Left knee; outer dressings were removed from the patient's left lower extremity. Silverlon is in place, clean, dry and intact. Patient does have some mild edema but no erythema, ecchymosis, warmth or palpable deformity. She is able to perform an active straight leg raise test. She is able to flex her knee actively to 80 degrees. She is able to actively dorsi and plantarflex her foot without difficulty. She is neurovascularly intact in the left lower extremity. Her peripheral pulses are 2+. Her capillary fill is less than 2 seconds. Discharge Data Allergies Allergy/AdvReac Type Severity Reaction Status Date / Time ciprofloxacin [From Cipro] Allergy Intermediate hives Verified 04/14/21 05:35 ibuprofen Allergy Intermediate rash Verified 04/14/21 05:35 nickel Allergy Mild itching/kely Verified 04/14/21 11:18 h Procedures Performed Operation Date: 04/14/21 07:00 Actual Procedures p Left Total Knee Arthroplasty, Cemented(Left) - Arsh Interiano MD Ordered Studies 04/14/21 05:00 US - OR guided needle placemen Routine Hospital Course (1) S/P total knee arthroplasty: Patient had an uneventful overnight stay following left total knee arthroplasty. She states she essentially has no pain at this point. She is very pleased with the results of the surgery. We will plan on discharge home t osmani after a.m. PT/OT. PT/OT Keep Silverlon dressing in place Weightbearing as tolerated on left lower extremity with walker assistance and knee immobilizer for the first 48 hours postoperatively. DVT prophylaxis with LOW stockings and aspirin Pain control with p.o. medications Ice with EZ wrap Plan on discharge home today with in-home physical therapy for the first 2 weeks. Follow-up with [facility] orthopedics as previously scheduled. With questions contact our clinic at [phone] Total Time Total Time Spent Total Time Spent (In Minutes): 20 minutes Discharge Plan Discharge Items Patient Disposition: Home - Home Health Services Reason For Visit: Left Knee Arthritis, Genu Valgum Discharge Diagnosis: Left knee Arthritis, Genu Valgum Activity: As commented below Lifting: None Bathing: Keep incision dry Bathing Comment: May shower tomorrow Sexual Activity: Wait until after follow-up appointment Exercise/Sports: Wait until after follow-up appointment Driving/Machine Use: No driving until cleared by marketing support specialist Weightbearing Comment: as tolerated with walker and immobilizer for 48 hrs Non-emergency contact: Surgeon Call non-emergency contact if: you have any medication questions, your pain is not controlled, your temperature is above 101.5, your wound has increased drainage and your wound pain has increased Follow-up/Referrals: Arsh Silver MD [Primary Care Provider] - Diet: Regular Addtl Attending Provider Instructions: Post-operative Instructions Dear Patient and Family/Friends, Before you are discharged from the hospital, it is important to know what to expect when you get home after surgery. To that end, we have created this sheet of discharge instructions which covers many commonly asked questions. Make sure you go through this sheet in its entirety with your nurse before you are discharged. Please note that we will go over the specifics of your surgery and recovery when you return for your first post-operative visit. Sincerely, Dr. Interiano Medications 1. Oxycodone 5 mg: Take 1-2 tabs every 4-6 hours as needed for pain. A prescription for 30 tablets will be sent to your pharmacy. 2. Diclofenac sodium 75 mg: Take 1 tab twice daily for the first 30 days postoperatively for pain and inflammation relief. A prescription for this medication will be sent to your pharmacy with 1 refill. 3. Aspirin 81 mg: Take 1 tab twice daily for the first 30 days postoperatively for blood clot prevention. Please purchase this medication. 4. Extra strength Tylenol 500 mg: Take 2 tabs every 6-8 hours as needed for additional pain relief. Please purchase the medication. Pain Expect to be in a fair amount of pain after surgery. Remember, our goal is not to eliminate your pain, but to make it tolerable. It is a good idea to stay ahead of your pain by taking the medications you were prescribed once you get home. Typically, the pain starts improving 3-7 days after surgery. You should start weaning off the narcotic pain medication (oxycodone, hydrocodone, hydromorphone, morphine) as soon as your pain improves. Please call our office if your pain is not adequately controlled. Ice Ice your operative site at least 5 times a day for 15-30 minutes at a time. Make sure you have a thin cloth between the ice or cooling unit and your skin to prevent henning bite. This is especially important if you received a nerve block. Continue icing your operative site for the first 5-7 days after surgery, then as needed. Diet/Nausea/Vomiting Start by drinking clear liquids and eating crackers. If you can tolerate this, then you may resume your normal diet. If you feel nauseated or vomit, take Zofran/ondansetron (if prescribed). Please call our office if you have intractable nausea or vomiting, or, if after hours, you may go to the Emergency Room for help. Constipation Constipation is a common side effect of narcotic pain medication. If you have not had a bowel movement within 2 days after surgery, we recommend purchasing an over the counter laxative such as Milk of Magnesia, Dulcolax, or Miralax from a local pharmacy, and taking it as instructed. Call our clinic if any questions. Slings and Braces If you were placed in a sling or brace, it must be worn at all times, including sleep. You may remove your sling or brace for physical therapy, home exercises, and showering. The length of time you will be in your brace and range of motion restrictions depends on what surgery you had; these details will be reviewed at your first post-operative appointment. Nerve block The anesthesia team sometimes places a nerve block to help with post-operative pain control. This results in significant numbness and inability to move the extremity. The nerve block usually wears off in 8-12 hours, but sometimes can last up to 24 hours. Please call our office if you are still unable to move your extremity after 24 hours, unless you received a pain pump to take home. Nerve blocks typically wear off quickly, so start taking pain medication as soon as you start feeling soreness near your surgical site. Weight bearing and Range of Motion. Do not bear any weight through your operative extremity immediately after surgery. If you had upper extremity surgery, do not lift anything with that arm. If you are in a knee brace, keep it locked in place until your follow-up. We will discuss your weight bearing, range of motion, and lifting restrictions in detail at your first post-operative appointment. Continuous Passive Motion (CPM) Machine If you were prescribed a CPM machine, it will start after your first post- operative appointment, at which time we will give you instructions on the range of motion settings and duration of treatment Physical therapy You will be given a prescription for physical therapy or occupational therapy at your first post-operative appointment. Typically, patients start therapy within 1 week of surgery Wound care and showering We will inspect your wound at your first post-operative visit, and may do a dressing change at that time. Most patients will be in a water-proof dressing that is removed 14 days after surgery. It is normal to see some dried blood on the dressing. Do not remove your dressing, paper strips or sutures yourself unless you are given permission. Showering is allowed the day after surgery. Do not scrub or remove any dressings. The wound should not be submerged underwater (i.e. in a bathtub or pool) until 4 weeks after surgery LOW stockings If you were given white stockings, these are to be worn at all times except to shower (on both legs) for the first 2 weeks after surgery. Driving You may not drive while taking narcotic pain medication or while in a cast, splint, sling or brace. You, the patient, need to make the final determination about when you are safe to drive, however, the earliest you may consider driving after surgery is below: Hand/Wrist/Elbow Surgery: 3 days Shoulder Surgery: 2 weeks Hip,/Knee/Ankle Surgery: 4 weeks Fracture repair: 6 weeks Return to Work Your return to work depends on what surgery was done and what type of work you do. Please bring any paperwork your employer needs completed to your first post-operative visit. Also, bring a description of your job duties, as this helps us to understand what risks you may face at work. Travel Avoid long distance travel (greater than 1 hour) in airplanes and cars for the first 6 weeks after surgery. If you must travel, you need to have a Doppler ult rasound done before you travel to rule out a blood clot in your legs. Follow-up You should have a follow-up appointment already scheduled 1-2 days after surgery. If not, please contact our office to make this appointment before you leave the hospital. When to call the office It is normal to have swelling and bruising in the limb that was operated on. This will improve with time. It is also normal to have fevers for the first 2 days after surgery. Reasons you should call your doctor include: Uncontrolled pain; Nausea, vomiting, or constipation that does not improve with medication; Fevers over 101.5, chills, sweats; Drainage or bleeding from the wound; Foul odor; Spreading areas of redness; Any other concerns Pending Studies at Discharge: No Stand-Alone Forms: [facility] Medications and DC Order Prescriptions: New oxycodone 5 mg tablet 5 mg PO Q4H Qty: 30 RF: 0 diclofenac sodium 75 mg tablet,delayed release (DR/EC) 75 mg PO BID 30 Days Qty: 60 RF: 1 Continued adapalene [Differin] 0.1 % cream 1 applic topical DAILY RF: 0 diclofenac sodium 1 % kit 2 gm TOP BID PRN (Reason: Pain) RF: 0 clindamycin phosphate 1 % swab 1 appln TOP HS PRN (Reason: Rash) RF: 0 Caltrate 600-D Plus Minerals 600 mg calcium- 800 unit-50 mg tablet 1 tab PO BID RF: 0 cinnamon bark [Cinnamon] 500 mg capsule 1,000 mg PO QAM RF: 0 multivitamin capsule 1 cap PO QAM RF: 0 omega-3 fatty acids [Fish Oil Concentrate] 1,000 mg capsule 1,000 mg PO QAM RF: 0 tamoxifen 20 mg tablet 20 mg PO QAM RF: 0 lisinopril-hydrochlorothiazide 20-12.5 mg Tablet 1 tab PO QAM RF: 0 gabapentin 300 mg Capsule 300 mg PO QAM RF: 0 turmeric root extract 500 mg Capsule 500 mg PO QAM RF: 0 aspirin [Aspirin Low Dose] 81 mg tablet,delayed release (DR/EC) 81 mg PO QAM RF: 0 acetaminophen [Tylenol 8 Hour] 650 mg Tablet Extended Release 650 mg PO TID PRN (Reason: Pain) RF: 0 Discontinued celecoxib [Celebrex] 200 mg capsule 200 mg PO QAM PRN (Reason: pain) RF: 0 Discharge Orders: Discharge Order (Routine); Ordered 04/15/21 Ordered By: Pal Clay Admission Data Admit Date/Time: 04/14/21 09:20 Attending Provider: Arsh Interiano Admit Provider: Arsh Interiano Primary Care Provider: Arsh Silver
[2021-04-15 10:57] VITALS: BP 115/65
== END 2021-04-15 12:56 | disposition home health service (06) ==
LOC: ASU 05:19 → PACUINP 05:19 → 3E 11:08

== ENCOUNTER 2023-04-12 09:12 | Observation (INO) ==
--- NOTE | 2023-03-14 15:56 | PAT Medication Instructions ---
Medication Instructions Date of Service March 14, 2023 Home Medications calcium 600 mg-D3 800 unit-mag11 50 ef-yblm-tlusqe-angelita-s.borat tablet (Caltrate 600-D Plus Minerals) 1 tab PO BID cinnamon bark 500 mg capsule (Cinnamon) 1,000 mg PO QAM multivitamin 1 cap PO QAM omega-3 fatty acids 1,000 mg capsule (Fish Oil Concentrate) 1,000 mg PO QAM tamoxifen 20 mg tablet 20 mg PO QAM aspirin 81 mg tablet,delayed release (Glenn Low Dose Aspirin) 81 mg PO QAM gabapentin 300 mg capsule 300 mg PO QAM lisinopril 20 mg-hydrochlorothiazide 12.5 mg tablet 1 tab PO QAM turmeric root extract 500 mg capsule 500 mg PO QAM acetaminophen 650 mg tablet,extended release (Tylenol 8 Hour) 650 mg PO DAILY Pain adapalene 0.1 % topical gel (Differin) 1 applic topical HS vitamin E 1,200 unit capsule 1 cap PO HS ASK your prescriber and surgeon tamoxifen 20 mg tablet 20 mg PO QAM STOP taking 2 weeks before surgery (or as soon as possible if surgery is within 2 weeks) cinnamon bark 500 mg capsule (Cinnamon) 1,000 mg PO QAM omega-3 fatty acids 1,000 mg capsule (Fish Oil Concentrate) 1,000 mg PO QAM turmeric root extract 500 mg capsule 500 mg PO QAM vitamin E 1,200 unit capsule 1 cap PO HS STOP taking 24 hours before surgery adapalene 0.1 % topical gel (Differin) 1 applic topical HS DO NOT take the morning of surgery multivitamin 1 cap PO QAM lisinopril 20 mg-hydrochlorothiazide 12.5 mg tablet 1 tab PO QAM Take morning of surgery With a small sip of water, OTHERWISE NOTHING TO EAT OR DRINK AFTER MIDNIGHT: aspirin 81 mg tablet,delayed release (Glenn Low Dose Aspirin) 81 mg PO QAM (continue as normal unless told otherwise by surgeon) gabapentin 300 mg capsule 300 mg PO QAM acetaminophen 650 mg tablet,extended release (Tylenol 8 Hour) 650 mg PO DAILY Pain Take evening before surgery calcium 600 mg-D3 800 unit-mag11 50 ju-jqow-sloeoq-angelita-s.borat tablet (Caltrate 600-D Plus Minerals) 1 tab PO BID Other Notes If you have any questions please call us at [phone] or [phone] or [phone] or [phone]
--- NOTE | 2023-03-21 12:13 | Anesthesiology Consultation ---
Date of Service March 21, 2023 Assessment & Plan (1) Encounter for pre-operative examination: - Infectious disease screening: Per assessment on 03/21/23: No known infectious disease contacts or current infectious disease symptoms. No noted recent Covid positive test result. - S/P Left TKA (04/14/21): SAB (3 attempts) L3 + regional at [facility] - Outpatient joint assessment: Pt currently scheduled for inpatient pathway. If surgeon requests review for outpatient joint pathway, patient is not recommended candidate for outpatient joint program from anesthesia standpoint. - PCP visit (03/12/23): "They are able to walk two blocks at a moderate pace. Knee pain stops her from being active. The patient's functional status is adequate (equal to 4 METS).. Patient is low medical risk for the listed procedure." Chart Review Chart Review: Acceptable Risk for Surgery and Patient seen in Pre Admission Testing Teaching & Discussion Pre-Anesthesia Teaching/Discussion Notes: Instructed NPO after midnight before surgery,except medications with 15 cc of water. Medication instructions provided according to the PAT guidelines. History Surgery Operation Date: 04/12/23 08:50 Proposed Procedures p Right Total Knee Arthroplasty - Arsh Interiano MD Height/Weight Height: 5 ft Weight: 77.3 kg Allergies Allergy/AdvReac Type Severity Reaction Status Date / Time ciprofloxacin [From Cipro] Allergy Intermediate hives Verified 03/14/23 14:59 ibuprofen Allergy Intermediate rash Verified 03/14/23 14:59 nickel Allergy Mild itching, Verified 03/15/23 09:43 rash diclofenac Allergy Unknown rash Verified 03/15/23 09:43 Medications Home Medications Medication Instructions Recorded Confirmed Last Taken calcium 600 mg-D3 800 unit-mag11 1 tab PO BID 10/23/18 03/14/23 04/13/21 19:00 50 vc-arpg-kqxzsh-angelita-s.borat tablet (Caltrate 600-D Plus Minerals) cinnamon bark 500 mg capsule 1,000 mg PO QAM 10/23/18 03/14/23 04/11/21 (Cinnamon) multivitamin 1 cap PO QAM 10/23/18 03/14/23 04/11/21 omega-3 fatty acids 1,000 mg 1,000 mg PO QAM 11/18/18 03/14/23 04/07/21 capsule (Fish Oil Concentrate) tamoxifen 20 mg tablet 20 mg PO QAM 04/09/19 03/14/23 04/12/21 aspirin 81 mg tablet,delayed 81 mg PO QAM 05/24/20 03/14/23 04/11/21 release (Glenn Low Dose Aspirin) gabapentin 300 mg capsule 300 mg PO QAM 05/24/20 03/14/23 04/14/21 04:00 lisinopril 20 1 tab PO QAM 05/24/20 03/14/23 04/12/21 mg-hydrochlorothiazide 12.5 mg tablet turmeric root extract 500 mg 500 mg PO QAM 05/24/20 03/14/23 04/11/21 capsule acetaminophen 650 mg 650 mg PO DAILY Pain 11/15/21 03/14/23 Unknown tablet,extended release (Tylenol 8 Hour) adapalene 0.1 % topical gel 1 applic topical HS 03/14/23 03/14/23 Unknown (Differin) vitamin E 1,200 unit capsule 1 cap PO HS 03/14/23 03/14/23 Unknown Past Medical History Medical History Osteoarthritis Edema of both ankles Fatty liver Prediabetes diet controlled Hyperlipidemia no meds Obesity Primary invasive malignant neoplasm of right female breast s/p lumpectomy/XRT (2018) No current issues- no limb restriction Hypertension Well controlled, stable Arthritis Exercise / Class Metabolic Activity II 4-5 Yardwork/Stairs/Walk up hill Past Family History Family History Mother , age 86 CVA No problems noted. Father , age 75 surgical complications prostate operation No problems noted. Son No problems noted. Other No family history of adverse response to anesthesia Past Surgical History Surgical History History of left knee replacement Left TKA (04/14/21): SAB (3 attempts) L3 + regional at [facility] History of cataract surgery Left (2020) S/P epidural steroid injection History of total hip arthroplasty Left hip replacement (05/2019): post-op confusion per discharge summary Right hip replacement (10/02/19): SAB at L3/L4 x1 attempt at [facility] History of tonsillectomy History of colonoscopy 2020 History of right cataract surgery Status post ectopic Status post right breast lumpectomy "partial mastectomy" 2019 Past Anesthesia History No Family Hx of Anesthesia Complications and Other (Left hip replacement (05/2019): post-op confusion, no similar issues with subsequent surgeries/anesthesia) History of PONV No Hx of PONV and No Hx of Motion Sickness Social History Smoking Status: Former smoker tobacco type: cigarettes Smoking cigarettes per day: 1/2 pack per day x 12 years Do You Dip or Chew Tobacco: No Smoking End Date: quit at 33 yrs old Hx Alcohol Use: Yes Alcohol type: wine alcohol intake frequency: 0-2 drinks per day Hx Substance Use: No substance use type: does not use Review of Systems Patient denies chest pain, shortness of breath, dyspnea on exertion, fever, chills, cough, wheezing, palpitations. Physical Exam Vital Signs VITALS BP 126/75 P 73 TEMP 97.6 SP02 95%RA RESP 18 PHYSICAL Full cervical extension range of motion. Full TMJ range of motion. TMD 3 finger breaths Mallampati Score 3 Dentition: missing molar, + crowns (several) Lungs: clear throughout to auscultation Cardiac: regular rate and rhythm, no murmurs noted Spine: normal Carotid arteries: negative bruit Extremities: non-pitting LE edema Lab Results Anesthesia Preop Results Results Anesthesia Widget: WBC 6.56 K/ul (4.8-10.8) 03/21/23 Hgb 12.9 g/dl (12.0-16.0) 03/21/23 Hct 38.0 % (37.0-47.0) 03/21/23 Plt 262 K/uL (130-400) 03/21/23 Na 139 mmol/L (136-145) 03/21/23 K 4.3 mmol/L (3.5-5.1) 03/21/23 Cl 103 mmol/L (98-107) 03/21/23 CO2 30 mmol/L (21-32) 03/21/23 BUN 17 mg/dl (6-23) 03/21/23 Creat 0.73 mg/dl (0.6-1.2) 03/21/23 Glucose Level 113 mg/dl (70-99(Fasting)) H 03/21/23 PT 11.4 Seconds (9.0-12.0) 03/21/23 PTT 25 Seconds (21-31) 03/21/23 INR 1.0 (0.9-1.1) 03/21/23 Urine Color Yellow 03/21/23 Urine Appearance Clear (Clear) 03/21/23 Urine pH 5.0 (4.5-7.5) 03/21/23 Urine Specific [place] 1.024 (1.000-1.030) 03/21/23 Urine Protein Negative (Negative) 03/21/23 Urine Glucose (UA) Negative (Negative) 03/21/23 Urine Ketones Trace (Negative) H 03/21/23 Urine Blood Negative (Negative) 03/21/23 Urine Nitrite Negative (Negative) 03/21/23 Urine Bilirubin Negative (Negative) 03/21/23 Urine Urobilinogen Negative (Negative) 03/21/23 Urine Leukocyte Esterase Negative (Negative) 03/21/23 Blood Type O Positive 03/21/23 Antibody Screen NEGATIVE 03/21/23 Testing Electrocardiogram Date: 03/21/23 NSR at 72bpm. Low voltage QRS. Cannot r/o anterior infarct, age undetermined. No significant change compared to 01/05/2021 per pulp maker comparison.
--- NOTE | 2023-03-21 15:52 | History & Physical Report ---
Date of Service March 21, 2023 Assessment & Plan (1) Osteoarthritis of right knee: Plan: PRE-OP Diagnosis: Right knee osteoarthritis Planned Procedure: Right total knee arthroplasty Plan: Patient is scheduled to undergo this procedure at the [facility] with Dr. Interiano on , April 12, 2023. Risks and complications of the procedure such as: Infection, bleeding, pain, scarring, nerve blood vessel damage, weakness, wound problems, stiffness, incomplete relief of symptoms, hardware failure, hardware loosening, wear, fracture, tendon or ligament injury, blood clots, embolism, cardiac, stroke and were explained to the patient at her visit today and informed consent for the procedure was obtained. Patient also understands risks of proceeding with surgical intervention during the COVID-19 pandemic. Currently she is asymp tomatic and states that she has not been in contact with anyone positive for the virus recently. We have obtained preoperative medical clearance from the patient's primary care provider Dr. Silver. Patient is scheduled to meet with anesthesia at the hospital today at noon. While there she will obtain a CBC with differential, complete metabolic panel, PT/INR, urinalysis, urine culture and sensitivity, EKG and a nasal culture for MRSA. During today's visit we reviewed the total knee packet. I provided the patient with paperwork to obtain obtaining a handicap placard for her vehicle. I provided her with information about lectures offered by [facility] in regards to joint replacement surgery. Has a walker from her previous joint replacement surgery that she will bring with her on the day of her procedure. She also has a raised toilet seat and a shower bench in her home. We discussed discharge planning from the hospital. Patient states she will most likely do in-home physical therapy for the first 2 weeks before transitioning to outpatient physical therapy at [facility]. I advised the patient that she will be provided with a prescription for narcotic pain medication for postoperative pain control. We will have her on aspirin twice daily for the first 30 days postoperatively for blood clot prevention. Patient verbalized understanding of all information provided during today's visit. She thanked us for the care that she received. If she has questions or concerns should arise prior to her surgery, she will contact the clinic. She will have her 2-week postoperative follow-up with myself on Christina 24. This chart was completed utilizing [employer] voice recognition software. Grammatical errors, random word insertions, pronoun errors, and in complete sentences are an occasional consequence of the system. Any questions or concerns about the content, text, or information contained within the body of this dictation should be addressed directly to the physician for clarification. History of Present Illness Chief Complaint: Chief Complaint: Right knee pain with gait disturbance Primary Care Provider: Arsh Silver MD History of Present Illness (including history relevant to procedure): This 77-year-old female presents to the clinic today for preoperative history and physical. Patient has had both of her hips and her left knee replaced by Dr. Interiano in the past. She states that over the past year she has noticed that her gait is off due to the pain she experiences in her right knee, localized mostly over the lateral aspect. She has visible malalignment and had recently been evaluated by Dr. Concepcion for lower back pain he does not feel that surgical intervention is warranted for her spinal stenosis. Patient states that she also experiences weakness in both lower extremities and has trouble going up or down inclines. At this point she is electing to proceed with surgical intervention for her right knee arthritis. Review Of Systems: A 12 point review of systems is performed is unremarkable except for those things stated in the HPI and past medical history. Past Medical History: Problems: Status post total left knee replacement Visit for wound check Osteoarthritis of left knee Dressing change or removal, surgical wound Osteoarthritis of right hip Status post total replacement of left hip Osteoarthritis of left hip Preop examination LBP (low back pain) Knee pain HTN (hypertension) Spondylolisthesis Hypercholesterolemia Obesity History of breast cancer with radiation treatment Procedure History Procedure Procedure Date Comments Wrist surgery, left 1998 Ectopic 1980 Tonsillectomy Right total hip arthroplasty Left total hip arthroplasty Left total knee arthroplasty Breast mastectomy 1969 Allergies and Sensitivities: diclofenac(n/a) Nickel(rash) ibuprofen(Hives) Cipro(Hives) Current Home Meds: (Last Updated 03/21 11:07) acetaminophen amoxicillin (amoxicillin 500 mg oral capsule) 2,000 mg PO As indicated one hour before dental and other procedures as directed aspirin (Aspir 81) calcium citrate (calcium (as calcium citrate) 250 mg oral tablet) cephalexin (cephalexin 500 mg oral capsule) 500 mg PO tid cinnamon clindamycin topical (clindamycin 1% topical swab) gabapentin (gabapentin 300 mg oral capsule) hydroCHLOROthiazide-lisinopril (hydroCHLOROthiazide-lisinopril 12.5 mg-20 mg oral tablet) lisinopril PO Daily multivitamin omega-3 polyunsaturated fatty acids (Fish Oil oral capsule) taMOXIfen (tamoxifen 20 mg oral tablet) turmeric Initial Wt: 03/21 77.0 kg 169 lb Allergies Allergy/AdvReac Type Severity Reaction Status Date / Time ciprofloxacin [From Cipro] Allergy Intermediate hives Verified 03/14/23 14:59 ibuprofen Allergy Intermediate rash Verified 03/14/23 14:59 nickel Allergy Mild itching, Verified 03/15/23 09:43 rash diclofenac Allergy Unknown rash Verified 03/15/23 09:43 Home Medications Medication Instructions Recorded Confirmed Type calcium 600 mg-D3 800 unit-mag11 1 tab PO BID 10/23/18 03/14/23 History 50 uj-tyrm-ughokh-angelita-s.borat tablet (Caltrate 600-D Plus Minerals) cinnamon bark 500 mg capsule 1,000 mg PO QAM 10/23/18 03/14/23 History (Cinnamon) multivitamin 1 cap PO QAM 10/23/18 03/14/23 History omega-3 fatty acids 1,000 mg 1,000 mg PO QAM 11/18/18 03/14/23 History capsule (Fish Oil Concentrate) tamoxifen 20 mg tablet 20 mg PO QAM 04/09/19 03/14/23 History aspirin 81 mg tablet,delayed 81 mg PO QAM 05/24/20 03/14/23 History release (Glenn Low Dose Aspirin) gabapentin 300 mg capsule 300 mg PO QAM 05/24/20 03/14/23 History lisinopril 20 1 tab PO QAM 05/24/20 03/14/23 History mg-hydrochlorothiazide 12.5 mg tablet turmeric root extract 500 mg 500 mg PO QAM 05/24/20 03/14/23 History capsule acetaminophen 650 mg 650 mg PO DAILY Pain 11/15/21 03/14/23 History tablet,extended release (Tylenol 8 Hour) adapalene 0.1 % topical gel 1 applic topical HS 03/14/23 03/14/23 History (Differin) vitamin E 1,200 unit capsule 1 cap PO HS 03/14/23 03/14/23 History Past Med/Surg History Medical History Osteoarthritis Edema of both ankles Fatty liver Prediabetes diet controlled Hyperlipidemia no meds Obesity Primary invasive malignant neoplasm of right female breast s/p lumpectomy/XRT (2018) No current issues- no limb restriction Hypertension Well controlled, stable Arthritis Surgical History History of left knee replacement Left TKA (04/14/21): SAB (3 attempts) L3 + regional at [facility] History of cataract surgery Left (2020) S/P epidural steroid injection History of total hip arthroplasty Left hip replacement (05/2019): post-op confusion per discharge summary Right hip replacement (10/02/19): SAB at L3/L4 x1 attempt at [facility] History of tonsillectomy History of colonoscopy 2020 History of right cataract surgery Status post ectopic Status post right breast lumpectomy "partial mastectomy" 2018 Family History Mother , age 86 CVA No problems noted. Father , age 75 surgical complications prostate operation No problems noted. Son No problems noted. Other No family history of adverse response to anesthesia Social History Smoking Status: Former smoker Tobacco Type: Cigarettes Age Started Using Tobacco: 21; Age Quit Using Tobacco: 33; packs per day: 0.5; Cigarettes Per Day: 1/2 pack per day x 12 years; Second Hand Exposure: No; Do You Dip or Chew Tobacco: No; Hx Alcohol Use: Yes Alcohol type: wine Hx Substance Use: No Preferred Language: [place] Communication Ability: Effective Visual Impairment: No Limitations Hearing Ability: Normal Tobacco Classer Required: No Beliefs That Will Affect Care: None marital status: / Current Living Situation: Family Current Living Situation Comment: lives w/ son current occupation: retired [employer] Feels Safe at Home: Yes Childhood Exposure to Second-Hand Smoke: Yes caffeine: Yes (4 cups per day) during the past year weight has: remained stable Dental Care, Regularly: Yes Physical Activity Frequency: Other Physical Activity Frequency Comment: not doing any exercising due to hip pain Seatbelt Use: always Sunscreen Use: Yes Assistive Devices: Cane and Glasses Review of Systems All systems reviewed & are unremarkable except as noted in Subjective Physical Exam Physical Exam: Physical Exam: (relevant to the procedure, including heart and lung evaluation) General: Alert and oriented x 3 with proper grooming and hygiene Eyes: Pupils are equal reactive to light with accommodation. Extraocular movements are intact Throat: Posterior oropharynx clear with absence of edema, erythema or exudate. Dentition is appropriate Cardiac: Regular rate and rhythm with no murmurs or gallops appreciated Lungs: Clear to auscultation throughout with no wheezing, rales or rhonchi Abdomen: Obese, nondistended, nontender with NABS Extremities: Right knee; range of motion is from 0 degrees of extension to about 118 degrees of flexion. Patient experiences some slight lateral joint line tenderness when knee is palpated in flexed position. She has visible valgus malalignment. There is no laxity with varus or valgus stressing. Her patella is not mobile due to arthritic change within the patellofemoral joint. AP drawer sign and Carmelo test were negative. Patient is neurovascularly intact in the right lower extremity but does walk with an antalgic gait. Neuro: Cranial nerves II through XII are intact with no motor or sensory deficit Skin: Normal in appearance with no open skin areas or discharge Results & Data Diagnostic Findings Studies (relevant to the procedure): 3 views of the of thee right knee which shows bone on bone arthritis in the lateral compartment and valgus malalignment.
[~2023-04-12 09:12] MED LIST changes: +ACETAMINOPHEN 500 MG TAB PO SCH; +BUPIVACAINE 0.5 % 5 MG/1 ML PF 10ML VIAL ONE; +CeleBREX 200 MG CAP PO SCH; +FAMOTIDINE 20 MG TAB PO SCH; +LR 500ML BOLUS, THEN 15ML/HR IV SCH; +LR 60ML/HR IV SCH; +ROPIV 0.5% 246mg, Ketorolac 30mg, EPINEPHrine 0.5mg in NSS INFIL SCH; +ROPIVACAINE 0.5% 5 MG/ML 30 ML VIAL ONE; -ROPIVACAINE 0.5% HCL/PF 150 MG, BUPIVACAINE 0.75% MPF 20 ML, EPINEPHrine 0.15 MG, Ketor... INFIL SCH; +ROPIVACAINE 0.5% HCL/PF 150 MG, BUPIVACAINE 0.75% MPF 20 ML, EPINEPHrine 0.15 MG, dexAM... INFIL SCH; +Scopolamine 1 MG TDSY TD SCH; +TRANEXAMIC ACID 1,000 MG **IV Intra-op IV SCH; +TRANEXAMIC ACID 1,000 MG **IV Pre-op IV SCH; -[UNRECOGNIZED DRUG - REMARK] SCH; +ceFAZolin 2000MG 2,000 MG/15 ML SYR IV SCH; +dexAMETHasone**PF** 10 MG/ML VIAL IV SCH; +traMADol HCL 50 MG TABLET PO SCH
[2023-04-12] MEDS ORDERED: MIDAZOLAM HCL 1 MG/ML 2ML VIAL ONE (10:02)
[2023-04-12] MEDS ORDERED: fentaNYL citrate PF 100 MCG/2 ML VIAL ONE (10:02)
[2023-04-12] MEDS ORDERED: ONDANSETRON INJ 2 MG/ML 2 ML VIAL IV PRN ×2 (10:30→13:40)
[2023-04-12] MEDS ORDERED: fentaNYL citrate PF 100 MCG/2 ML VIAL IV PRN (10:30)
[2023-04-12] MEDS ORDERED: ePHEDrine sulfate 50 MG/ML AMP IV PRN (10:30)
[2023-04-12] MEDS ORDERED: ATROPINE SULFATE 0.1 MG/ML 10ML SYR IV PRN (10:30)
[2023-04-12] MEDS ORDERED: PROPOFOL IV EMULSION 10 MG/ML 20 ML VIAL IV ONE ×2 (10:50→13:03)
--- NOTE | 2023-04-12 10:54 | History & Physical Bridge Note ---
Date of Service April 12, 2023 History & Physical Bridge Note I have examined the patient, reviewed the History & Physical and in the interval since the performance of the History & Physical I have noted the following changes of clinical significance: no changes noted
[2023-04-12] MEDS ORDERED: ORTHO JOINT ANESTHETIC ONE (11:01)
--- OUTSIDE RECORDS SUMMARY | 2023-04-12 11:46 | External Medical Summary | Summary of Care ---
Author Name Unknown Organization [facility] Address [address] [place] [address] Phone [phone] Care Team Providers Care Flux Tube Attendant Name Role Phone Arsh Silver MD Primary Care Provider + Reason for Visit * Reason Onset Date Comments Encounter Created in Error 01/04/2023 Encounter Details Date Type Department Care Team (Late st Contact Info) Description 01/04/2023 Telephone Hematology/Oncology, [facility] [address] [place] [address] Terra Aguero CRNP [address] [place] [address] Encounter Created in Error Allergies Active Allergy Reactions Criticality Noted Date Comments Ciprofloxacin Rash 05/06/2016 Diclofenac Sodium Rash 06/13/2021 Patient states was diclofenac sodium tablets not the gel that caused her reaction. Ibuprofen Rash 10/25/2018 Reports a rash after taking ibuprofen for a long period of time (developed a rash after 2 weeks) Other Allergy (See Comments) Other (Please comment) 09/20/2020 Nickel-rash with bleeding documented as of this encounter (statuses as of 04/05/2023) Medications Medication Sig Dispensed Refills Start Date End Date Status MULTIVITAMINS PO TABS daily 0 0 11/30/2008 Active CALCIUM + D 600-200 MG-UNIT PO TABS 2 tabs in the morning 0 0 11/30/2008 Active ASPIRIN 81 MG PO CHEW One pill by mouth once a day with food 0 0 11/30/2008 Active TURMERIC POWD one cap daily 0 09/02/2010 Active CINNAMON 500 MG PO TABS 1000 mg daily 0 09/02/2010 Active OMEGA-3 FISH OIL 1000 MG PO CAPS Take one capsule by mouth twice a day 60 Cap 5 04/28/2013 Active acetaminophen (TYLENOL) 500 MG Tablet Take 1 Tablet by mouth in the morning and 1 Tablet at noon and 1 Tablet before bedtime. 0 Active Lisinopril-hydroCHLOR Othiazide 20-12.5 MG Oral TabletIndications:HTN , goal below 150/90 TAKE 1 TABLET BY MOUTH DAILY 90 Tablet 3 11/20/2022 Active documented as of this encounter (statuses as of 04/05/2023) Active Problems Problem Noted Date Diagnosed Date S/P TKR (total knee replacement), left 2 History of arthroplasty of left knee 06/13/2021 Obesity, Class I, BMI 30.0-34.9 (see actual BMI) 12/14/2020 Breast carcinoma, female, right 12/16/2019 History of right hip replacement 10/02/2019 History of right breast cancer 06/09/2019 S/P hip replacement, left 05/03/2019 Overview: Dr Interiano @[facility] History of right breast cancer 08/15/2018 Overview: 08/18 Right--new dx Well adult exam 07/24/2015 Overview: 09/20 colon benign hyperplastic polyp. Consider stop screen. 07/16 colonoscopy 2 hyperplastic polyps, right sided, so Dr Santos rec cindy 5y Prediabetes 06/24/2015 Hyperlipidemia with target LDL less than 130 Overview: ICD-10 update of inactive term Generalized osteoarthritis of multiple sites HTN, goal below 150/90 Fatty liver documented as of this encounter (statuses as of 04/05/2023) Resolved Problems Problem Noted Date Diagnosed Date Resolved Date Arthralgia of left knee 12/11/2019 10/0 07/2021 Arthritis of left hip 01/29/20192019 Encounter for examination fo r normal comparison and control in clinical research program 07/02/2018 11/03/2019 Overview: DO NOT DELETE [employer] DETECT Study: Project # [id number], Cardiology Physician Assistant: Talon Lopez, PhD. SUMMARY: Goal: Establish test characteristics (sensitivity, specificity, PPV, NPV) of a circulating tumor DNA (ctDNA)-based test for cancer. Hypothesis: Circulating tumor DNA (ctDNA) and elevated protein biomarkers (together, the marker panel) can be detected in asymptomatic individuals with early cancer. Specific Aim 1: Determine the prevalence of a positive marker panel test in a prospective clinical cohort of 10,000 asymptomatic women ages 65 to 75 years. Specific Aim 2: Determine the sensitivity, specificity, positive predictive value (PPV) and negative predictive value (NPV) of a marker panel test to identify histologically proven cancers that develop within 5-years of the marker panel evaluation. CONTACTS: During normal business hours, contact study staff at ; after hours Cardiology Physician Assistant via the [facility] [place] natural gas treating unit operator . Please contact study team before resolving/deleting from patients problem list. Study phone number: [phone]. Diagnosis changed due to Research Module. Go to Snapshot for study details. Encounter for examination fo r normal comparison and control in clinical research program 07/02/2018 12/01/2021 Overview: DO NOT DELETE - [employer] DETECT Study: Project # [id number], Cardiology Physician Assistant: Dustin Alegria, MS, MPH. SUMMARY: Goal: Establish test characteristics (sensitivity, specificity, PPV, NPV) of a circulating tumor DNA (ctDNA)-based test for cancer. - Hypothesis: Circulating tumor DNA (ctDNA) and elevated protein biomarkers (together, the marker panel) can be detected in asymptomatic individuals with early cancer. - Specific Aim 1: Determine the prevalence of a positive marker panel test in a prospective clinical cohort of 10,000 asymptomatic women ages 65 to 75 years. - Specific Aim 2: Determine the sensitivity, specificity, positive predictive value (PPV) and negative predictive value (NPV) of a marker panel test to identify histologically proven cancers that develop within 5-years of the marker panel evaluation. - CONTACTS: During normal business hours, contact study staff at ; after hours Cardiology Physician Assistant via the [facility] [place] natural gas treating unit operator . - Please contact study team before resolving/deleting from patients problem list. Study phone number: [phone]. Diagnosis changed due to Research Module. Go to Snapshot for study details. Arthritis of left knee 01/01/201712/10 Alcohol ingestion, 1-4 drink s per day on alcohol screening 04/30/2014 01/29/2019 Impaired fasting glucose 09/02/201005/2016 HTN, goal to be determined 1 04/20/2008 Overview: Modified per HTN protocol #16. Mixed dyslipidemia 9 Overview: Per Lipid Taxonomy. documented as of this encounter (statuses as of 04/05/2023) Immunizations Name Administration Dates Next Due COVID-19 mRNA, LNP-s, No Pre serve, 2-Dose Series (Moderna) 06/01/2020,04/28/2020 COVID-19, mRNA, LNP-s, PF, B ooster, 100mcg/0.5mg (Moderna) 07/12/2021,02/18/2021 Covid-19, Mrna, Lnp-s, Pf, B ivalent, 30 Mcg, IM, 12 yrs and above (Pfizer) 01/01/2022 Pneumococcal Conjugate Vacc, 13 Valent (Prevnar) 12/22/2014 Pneumococcal Polysaccharide PPV23 (Pneumovax) 09/06/2011 RSV Vac., Recomb, Adjuvant, PF,0.5 Ml (Arexvy) 12/25/2022 Season Influenza, Quad, PF, Adjuvanted, 65+ Yrs, IM (FLUAD) 12/11/2019 Seasonal Influenza, PF, 6 M & above, IM , (FluLaval or Fluzone) 01/25/2018,01/01/2017 Seasonal Influenza, Quadriva lent Hd (Fluzone Hd) 01/03/2022,12/14/2020 Seasonal Influenza, Quadriva lent, No Preserve, IM 12/29/2015 Seasonal Influenza, Split, I IV3, With Preserve, Inj 12/22/2014,04/17/2012,03/02/2010 Seasonal Influenza, Trivalen t, Adjuvanted, 65+ yrs 12/25/2022,01/29/2019 TDAP (age 10 and older)(Boostrix) 12/19/2019 TDAP (age 11 and older)(Adacel) 03/02/2010 Varicella Zoster Vaccine (Adult) 05/07/2015 Zoster Vaccine Recombinant (Shingrix) 02/20/2020 ,12/19/2019 documented as of this encounter Social History Tobacco Use Types Packs/Day Years Used Date Smoking Tobacco: Former Cigarettes 1 15 Q uit: 04/02/1978 Smokeless Tobacco: Never Alcohol Use Standard Drinks/Week Comments Yes 0 (1 standard drink = 0.6 oz pur e alcohol) occasional PHQ-2 Answer Date Recorded PHQ Adult Total Score 0 01/05/2023 Hunger Vital Sign Answer Date Recorded Within the past 12 months, y ou worried that your food would run out before you got the money to buy more. Never true 01/06/20 23 Within the past 12 months, t he food you bought just didn't last and you didn't have money to get more. Never true 01/05/2023 Sex and Gender Information Value Date Recorded Sex Assigned at Female 05/15/2019 8:23 AM EST Gender Identity Female 05/15/2019 8:23 AM EST Sexual Orientation Straight 05/15/2019 8: 23 AM EST Job Start Date Occupation Industry Not on file Not on file Not on file documented as of this encounter Miscellaneous Notes * Telephone Encounter - Ingrid Blackwell OSA - 01/04/2023 12:00 PM EDT error documented in this encounter Plan of Treatment Upcoming Encounters Date Type Department Care Team (Late st Contact Info) Description 04/10/2023 3:30 PM EST Telemedicine [facility] [address] [address] Radha Lord PA-C [address] [address] 07/16/2023 12:30 PM EDT Office Visit Hematology/Oncology [facility] [place] [address] [place] [address] Rad[facility] Law [facility] [address] [facility] [address] 09/17/2023 11:30 AM EDT Imaging Radiology [address] [place] [address] 01/11/2024 2:00 PM EDT Office Visit Family Practice [facility] [address] [place] [address] Arsh Silver MD [address] [place] [address] Scheduled Procedures Name Priority Associated Diagnoses Date/Ti me COLONOSCOPY FLEXIBLE PROXIMAL DIAGNOSTIC Recall History of colon polyps Health Maintenance Due Date Last Done Comments HbA1c 08/22/2023 08/21/2022, 05/31, 06/04/2020, Additional history exists Depression Screening 01/06/2024 01/05/2023 GFR 02/03/2024 02/02/2023, 08/01, 07/12/2022, Additional history exists Albumin/Creatinine Ratio 01/03/2025 01/03/2022 COLONOSCOPY-EVERY 5 YRS AGES 18-100 09/23/2025 09/23/2020, 09/23/2020, 07/22/2015, Additional history exists DXA Scan 01/12/2027 01/13/2020, 05/03, 05/13/2012 DTaP,Tdap,and Td Vaccines (3 - Td or Tdap) 12/18/2029 12/19/2019, 03/02/2010 Pneumococcal Vaccine: 65+ Years Completed 12/22/2014, 09/06/2011 Hepatitis C Screening Completed 05/06/2016 Zoster Vaccines Completed 02/20/2020, 12/01, 05/07/2015 Influenza Vaccine (FLU shot) Completed , 01/03/2022, 12/14/2020, Additional history exists COVID-19 Vaccine Completed 01/15/2023, 05/2021, 07/12/2021, Additional history exists GARDASIL-HPV IMMUNIZATION SERIES Aged Out No longer eligible based on patient's age to complete this topic Hepatitis B Aged Out No longer eligi ble based on patient's age to complete this topic MENINGOCOCCAL (MENACTRA/MENVEO) Aged Out No longer eligible based on patient's age to complete this topic documented as of this encounter Medical Devices Not on filedocumented as of this encounter Care Teams Flux Tube Attendant Relationship Specialty Start Date End Date Arsh Silver MD [address] [place] [address] PCP - General Family Medicine 06/24/15 documented as of this encounter
--- OUTSIDE RECORDS SUMMARY | 2023-04-12 11:46 | External Medical Summary | Summary of Care ---
Author Name Unknown Organization [facility] Address [address] [place] [address] Phone [phone] Care Team Providers Care Mental Health Advanced Practice Nurse Name Role Phone Arsh Silver MD Primary Care Provider + Reason for Visit * Reason Onset Date Comments FYI 12/29/2022 Caroline from [facility] is faxing the pre op form for this Pt. She has a total knee replacement scheduled for 04/12/23 Encounter Details Date Type Department Care Team (Late st Contact Info) Description 12/29/2022 Telephone Family Practice [facility] [address] [place] [address] Arsh Silver MD [address] [place] [address] FYI (Caroline from [facility]... Allergies Active Allergy Reactions Criticality Noted Date [...] as of this encounter (statuses as of 03/30/2023) Medications Medication Sig Dispensed Refills Start Date [...] and 1 Tablet before bedtime. 0 Active Lisinopril-hydroC HLOROthiazide 20-12.5 MG Oral TabletIndications :HTN, goal below 150/90 TAKE 1 TABLET BY MOUTH DAILY 90 Tablet 3 11/20/2022 Active Tamoxifen Citrate 20 MG Oral TabletIndications :Malignant neoplasm of areola of right breast in female, estrogen receptor positive TAKE 1 TABLET BY MOUTH DAILY 90 Tablet 3 12/29/2021 02/15/2023 Discontinued Gabapentin 300 MG Oral Capsule (Neurontin) TAKE 1 CAPSULE BY MOUTH DAILY 90 Capsule 1 08/29/2022 02/15/2023 Discontinued documented as of this encounter (statuses as of 03/30/2023) Active Problems Problem Noted Date Diagnosed Date S/P TKR (total knee replacement), left 2 History of arthroplasty of left knee 06/13/2021 Obesity, Class I, BMI 30.0-34.9 (see actual BMI) 12/14/2020 Breast carcinoma, female, right 12/16/2019 History of right hip replacement 10/02/2019 History of right breast cancer 06/09/2019 S/P hip replacement, left 05/03/2019 Overview: Dr Interiano @[facility] History of right breast cancer 08/15/2018 Overview: [...] as of this encounter (statuses as of 03/30/2023) Resolved Problems Problem Noted Date Diagnosed Date Resolved Date Arthralgia of left knee 12/11/201907/2021 Arthritis of left hip 01/29/20192019 Encounter for examination fo r normal comparison and control in clinical research program 07/02/2018 11/03/2019 Overview: DO NOT DELETE [employer] DETECT Study: Project # [id number], Customer Manager: Talon Lopez, PhD. SUMMARY: Goal: Establish test [...] contact study staff at ; after hours Customer Manager via the [facility] hospital trimming machine operator . Please contact study team before resolving/deleting from patients problem list. Study phone number: [phone]. Diagnosis changed due to Research Module. Go to Snapshot for study details. Encounter for examination fo r normal comparison and control in clinical research program 07/02/2018 12/01/2021 Overview: DO NOT DELETE - [employer] DETECT Study: Project # [id number], Customer Manager: Dustin Alegria, MS, MPH. SUMMARY: Goal: Establish [...] contact study staff at ; after hours Customer Manager via the [facility] hospital trimming machine operator . - Please contact study team before resolving/deleting from patients problem list. Study phone number: [phone]. Diagnosis changed due to Research Module. Go to Snapshot for study details. Arthritis of left knee 01/01/201712/10 Alcohol ingestion, 1-4 drink s per day on alcohol screening 04/30/2014 01/29/2019 Impaired fasting glucose 09/02/201005/2016 HTN, goal to be determined 1 04/20/2008 Overview: Modified per HTN protocol #16. Mixed dyslipidemia Overview: Per Lipid Taxonomy. documented as of this encounter (statuses as of 03/30/2023) Immunizations Name Administration Dates Next Due COVID-19 [...] encounter Miscellaneous Notes * Telephone Encounter - Opal Sanchez LPN - 12/30/2022 12:51 PM EDT Will wait for form, not sure if Preop exam is required. Please check when you see form. * Telephone Encounter - Starla Kunz OSA - 12/29/2022 2:05 PM EDT Caroline from [facility] is faxing the pre op form for this Pt. She has a total knee replacement scheduled for 04/12/23 documented in this encounter Plan of Treatment Upcoming Encounters Date Type Department Care Team (Late st Contact Info) Description 04/10/2023 3:30 PM EST Telemedicine [facility], [facility] [address] [address] Radha Lord PA-C [address] [place] [address] 07/16/2023 12:30 PM EDT Office Visit Hematology/Oncology [facility] [address] [facility] [place] [address] Radha Law MD [address] [facility] [place] [address] 09/17/2023 11:30 AM EDT Imaging Radiology [facility] [address] [address] 01/11/2024 2:00 PM EDT Office Visit Family Practice [facility] [address] [address] Arsh Silver MD [address] [place] [address] Scheduled Procedures Name Priority Associated Diagnoses Date/Ti [...] filedocumented as of this encounter Care Teams Mental Health Advanced Practice Nurse Relationship Specialty Start Date End Date Arsh Silver MD [address] [address] PCP - General Family Medicine 06/24/15 documented as of this encounter
--- OUTSIDE RECORDS SUMMARY | 2023-04-12 11:46 | External Medical Summary | Summary of Care ---
Author Name Unknown Organization [facility] Address [address] [facility] [place] [address] Phone [phone] Care Team Providers Care Hog Cooler Name Role Phone Arsh Silver MD Primary Care Provider + Reason for Visit * Reason Comments Follow Up Gabapentin recheck Encounter Details Date Type Department Care Team (Late st Contact Info) Description 04/10/2023 3:30 PM [facility] Telemedicine [facility], [facility] [address] [place] [address] Radha Lord PA-C [address] [place] [address] Lumbar radicular pain*; Spinal stenosis of lumbar region with neurogenic claudication Allergies Active Allergy Reactions Criticality Noted Date [...] as of this encounter (statuses as of 04/10/2023) Medications Medication Sig Dispensed Refills Start Date [...] MOUTH DAILY 90 Tablet 3 11/20/2022 Active Gabapentin 300 MG Oral Capsule (Neurontin)Indication s:Lumbar radicular pain,Spinal stenosis of lumbar region with neurogenic claudication TAKE 1 CAPSULE BY MOUTH DAILY 90 Capsule 3 02/15/2023 Active Tamoxifen Citrate 20 MG Oral TabletIndications: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, estrogen receptor positive TAKE 1 TABLET BY MOUTH DAILY 90 Tablet 3 02/15/2023 Active documented as of this encounter (statuses as of 04/10/2023) Active Problems Problem Noted Date Diagnosed Date S/P TKR (total knee replacement), left 2 History of arthroplasty of left knee 06/13/2021 Obesity, Class I, BMI 30.0-34.9 (see actual BMI) 12/14/2020 Breast carcinoma, female, right 12/16/2019 History of right hip replacement 10/02/2019 History of right breast cancer 06/09/2019 S/P hip replacement, left 05/03/2019 Overview: Dr Interiano @[facility] History of right breast cancer 08/15/2018 Overview: [...] as of this encounter (statuses as of 04/10/2023) Resolved Problems Problem Noted Date Diagnosed Date Resolved Date Arthralgia of left knee 12/11/201907/2021 Arthritis of left hip 01/29/20192019 Encounter for examination fo r normal comparison and control in clinical research program 07/02/2018 11/03/2019 Overview: DO NOT DELETE [facility] DETECT Study: Project # [id number], Retort Fireman: Talon Lopez, PhD. SUMMARY: Goal: Establish test [...] contact study staff at ; after hours Ret[employer] Fireman via the [facility] hospital process line operator . Please contact study team before resolving/deleting from patients problem list. Study phone number: [phone]. Diagnosis changed due to Research Module. Go to Snapshot for study details. Encounter for examination fo r normal comparison and control in clinical research program 07/02/2018 12/01/2021 Overview: DO NOT DELETE - [employer] DETECT Study: Project # [id number], Retort Fireman: Dustin Alegria, MS, MPH. SUMMARY: Goal: Establish [...] contact study staff at ; after hours Retort Fireman via the [facility] hospital process line operator . - Please contact study team before resolving/deleting from patients problem list. Study phone number: [phone]. Diagnosis changed due to Research Module. Go to Snapshot for study details. Arthritis of left knee 01/01/201712/10 Alcohol ingestion, 1-4 drink s per day on alcohol screening 04/30/2014 01/29/2019 Impaired fasting glucose 09/02/201005/2016 HTN, goal to be determined 1 04/20/2008 Overview: Modified per HTN protocol #16. Mixed dyslipidemia Overview: Per Lipid Taxonomy. documented as of this encounter (statuses as of 04/10/2023) Immunizations Name Administration Dates Next Due COVID-19 mRNA, LNP-s, No Pre serve, 2-Dose Series (Moderna) 06/01/2020,04/28/2020 COVID-19, MRNA-LNP, 23-24, P F, 50 MCG/0.5 mL, 12 YRS AND ABOVE, IM (MODERNA-Spikevax) 01/15/2023 COVID-19, mRNA, LNP-s, PF, B ooster, 100mcg/0.5mg [...] Never Alcohol Use Standard Drinks/Week Comments Yes 14 (1 standard drink = 0.6 oz pu re alcohol) 2 glasses/night PHQ-2 Answer Date Recorded PHQ Adult Total [...] on file documented as of this encounter Progress Notes * Radha Lord PA-C - 04/10/2023 12:08 PM EST Name: Namrata Paredes Date: 04/10/2023 After connecting to the patient via telephone, the patient was identified by name and date of . Patient was then informed that this was a telephone call only visit. The patient agreed to participate. Visit Disposition: Routine follow-up Total call duration five minutes. HPI: Namrata Paredes is a 77 year old female known to the Pain Management clinic presents for medication recheck. Using gabapentin 300 once daily for lumbar radicular pain. Last filled 02/15/23, three month supply with three refills. Admits more than 75% pain relief with gabapentin. Denies unwanted side effects. Denies significant low back or LE pain. Denies progressive LE weakness or paresthesia. Denies bowel/bladder dysfunction. Using tylenol PRN for pain. Experienced rash when using ibuprofen and diclofenac gel. Of note, upcoming right TKA [facility] 04/12/23. History of injections: Left L4 TF CORINE: 01/03/19 Caudal CORINE: 11/28/18 + aspirin 81 mg History: Past Medical History: Diagnosis Date Arthritis of left knee 01/01/2017 Breast cancer (HCC) 08/15/2018 Right Breast Invasive Carcinoma & DCIS Fatty liver Generalized osteoarthritis of multiple sites [place] L knee-chiro,accup, [place] History of right hip replacement 10/02/2019 HTN, goal below 150/90 Impaired fasting glucose Mixed dyslipidemia Other acne Prediabetes 06/24/2015 S/P hip replacement, left 05/2019 Dr Interiano @[facility] S/P TKR (total knee replacement), left 01/03/2022 Past Surgical History: Procedure Laterality Date ARTHROPLASTY KNEE TOTAL Left 04/14/2021 Dr Interiano PSU BREAST BIOPSY Right 08/09/2018 Invasive Carcinoma & DCIS BX LYMPH NODE DEEP AXIL Right 09/18/2018 BIOPSY LYMPH NODE DEEP AXILLARY OPEN performed by Evangelina Caballero MD at OR [facility] CATARACT SURGERY,COMPLEX Right 2013 CATARACT SURGERY,COMPLEX Left 2020 Dr Singh COLONOSCOPY, DIAGNOSTIC (RECTUM) 07/22/2015 hyperplastic polyps, diverticulosis, repeat 5 yrs/COLONOSCOPY FLEXIBLE PROXIMAL DIAGNOSTIC performed by Reno Snatos MD at ENDOSCOPY [facility] COLONOSCOPY, DIAGNOSTIC (RECTUM) 09/23/2020 1-4mm polyp and diverticulosis in sigmoid colon, internal hemorrhoids / biopsies hyperplastic polyp/5 year recall / COLONOSCOPY FLEXIBLE PROXIMAL DIAGNOSTIC performed by Reno Santos MD at ENDOSCOPY [facility] IDENTIFY SENTINEL NODE, RADIOACTIVE TRACER Right 09/18/2018 INJECTION PROCEDURE FOR IDENTIFICATION SENTINEL NODE performed by Evangelina Caballero MD at OR [facility] INJECT DX/THER SUBSTANCE INTERLAMINAR LUMBAR/SACRAL W IMAGE GUIDE 11/28/2018 INJECTION SPINE LUMBAR OR SACRAL performed by iDdier Sorenson DO at OR [facility] LUMBAR / SACRAL EPIDURAL, SINGLE LEVEL 12/19/2018 INJECTION TRANSFORAMINAL EPIDURAL LUMBAR OR SACRAL performed by Didier Sorenson DO at OR [facility] MASTECTOMY, PARTIAL Right 09/18/2018 MASTECTOMY PARTIAL performed by Evangelina Caballero MD at OR [facility] RADIATION THERAPY Right 12/16/2018 5130 cGy RADIATION THERAPY MANAGEMENT 2019 RADIUS OR ULNA FX W/FIXATION Left REMOVE TONSILS & ADENOIDS, AGE 12+ STRESS EXERCISE-WAVEFORM 02/2004 negative TOTAL HIP REPLACEMENT & PROSTHESIS Left 05/19/2019 Dr Interiano @[facility] TOTAL HIP REPLACEMENT & PROSTHESIS Right 10/02/2019 Dr Interiano @[facility] TREAT ECTOPIC /LAPAROSCOPY Current Outpatient Medications Medication Sig Dispense Refill MULTIVITAMINS PO TABS daily 0 0 CALCIUM + D 600-200 MG-UNIT PO TABS 2 tabs in the morning 0 0 ASPIRIN 81 MG PO CHEW One pill by mouth once a day with food 0 0 TURMERIC POWD one cap daily CINNAMON 500 MG PO TABS 1000 mg daily OMEGA-3 FISH OIL 1000 MG PO CAPS Take one capsule by mouth twice a day 60 Cap 5 acetaminophen (TYLENOL) 500 MG Tablet Take 1 Tablet by mouth in the morning and 1 Tablet at noon and 1 Tablet before bedtime. Lisinopril-hydroCHLOROthiazide 20-12.5 MG Oral Tablet TAKE 1 TABLET BY MOUTH DAILY 90 Tablet 3 Gabapentin 300 MG Oral Capsule (Neurontin) TAKE 1 CAPSULE BY MOUTH DAILY 90 Capsule 3 Tamoxifen Citrate 20 MG Oral Tablet TAKE 1 TABLET BY MOUTH DAILY 90 Tablet 3 No current facility-administered medications for this visit. Review of patient's allergies indicates: Allergen Reactions Ciprofloxacin Rash Diclo Gel [Diclofenac Sodium] Rash Patient states was diclofenac sodium tablets not the gel that caused her reaction. Ibuprofen Rash Reports a rash after taking ibuprofen for a long period of time (developed a rash after 2 weeks) Other Allergy (See Comments) Other (Please comment) Nickel-rash with bleeding ASSESSMENT: Lumbar radicular pain Grade 1 spondylolisthesis L4/5 Moderate lumbar spinal stenosis L3/4 RECOMMENDATION: Doing well with gabapentin 300 mg once daily, usually takes in AM. Denies unwanted side effects. Norefill needed at this time. Six month follow up, med recheck. Total call duration five minutes. Radha Lord PA-C 04/10/2023 documented in this encounter Plan of Treatment Upcoming Encounters Date Type Department Care Team (Late st Contact Info) Description 07/16/2023 12:30 PM EDT Office Visit Hematology/Oncology [facility] [address] [facility] [place] [address] Radha Law MD [address] [facility] [place] [address] 09/17/2023 11:30 AM EDT Imaging Radiology [address] [place] [address] 01/11/2024 2:00 PM EDT Office Visit Family Practice [facility] [address] [place] [address] Arsh Silver MD [address] [place] [address] Scheduled Procedures Name Priority Associated Diagnoses Date/Ti [...] Not on filedocumented as of this encounter Visit Diagnoses Diagnosis Lumbar radicular pain- Primary Thoracic or lumbosacral neuritis or radiculitis, unspecified Spinal stenosis of lumbar region with neurogenic claudication Spinal stenosis, lumbar region, with neurogenic claudication documented in this encounter Care Teams Hog Cooler Relationship Specialty Start Date End Date Arsh Silver MD [address] [facility] [place] [address] PCP - General Family Medicine 06/24/15 documented as of this encounter
--- OUTSIDE RECORDS SUMMARY | 2023-04-12 11:47 | External Medical Summary | Continuity of Care Document ---
Author Name Unknown Organization [id number] Address [address] [place] [phone] Care Team Providers Care Rock Singer Name Role Phone Arsh Silver Primary Care Physician [phone] [id number] Date(s): 03/21/23 - 03/21/23 [facility] [address] [place] [id number] [facility] Medicine [address] [facility], [address] [address] Encounter Diagnosis Preop examination(Discharge Diagnosis) - 03/21/23 Osteoarthritis of right knee(Discharge Diagnosis) - 03/21/23 Discharge Disposition: Home or Self Care Attending Physician: RONI Clay Dennis Referring Physician: MD Jaydon, Arsh Edmonds Allergies, Adverse Reactions, Alerts Substance Reaction Severity Status ibuprofen Hives Mild Active diclofenac 1 n/a Active Cipro Hives Mild Active Nickel rash Active 1on allergic to oral tablets Medications acetaminophen Start: 05/13/19 11:32:00 EST Start Date: 05/13/19 Status: Ordered amoxicillin 500 mg oral capsule Start: 11/11/19 13:20:00 EDT, 4 cap, PO, As indicated, Disp# 12 cap, Refills: 3, one hour before dental and other procedures as directed, Pharmacy: [id number], 152, cm, 09/10/19 9:58:00 EDT, Height Start Date: 11/11/19 Status: Ordered Aspir 81 Start: 05/13/19 11:33:00 EST Start Date: 05/13/19 Status: Ordered calcium (as calcium citrate) 250 mg oral tablet Start: 05/13/19 11:32:00 EST Start Date: 05/13/19 Status: Ordered cephalexin 500 mg oral capsule Start: 04/21/21 16:14:00 EST, 1 cap, PO, tid, Disp# 21 cap, Pharmacy: [id number] Start Date: 04/21/21 Stop Date: 04/28/21 Status: Ordered cinnamon Start: 05/13/19 11:33:00 EST Start Date: 05/13/19 Status: Ordered clindamycin 1% topical swab Start: 05/13/19 11:31:00 EST Start Date: 05/13/19 Status: Ordered Fish Oil oral capsule Start: 05/13/19 11:32:00 EST Start Date: 05/13/19 Status: Ordered gabapentin 300 mg oral capsule Start: 05/13/19 11:31:00 EST Start Date: 05/13/19 Status: Ordered hydroCHLOROthiazide-lisinopril 12.5 mg-20 mg oral tablet Start: 05/13/19 11:31:00 EST Start Date: 05/13/19 Status: Ordered lisinopril Start: 11/04/12 11:30:00, PO, Daily Start Date: 11/04/12 Status: Ordered multivitamin Start: 05/13/19 11:33:00 EST Start Date: 05/13/19 Status: Ordered tamoxifen 20 mg oral tablet Start: 05/13/19 11:31:00 EST Start Date: 05/13/19 Status: Ordered turmeric Start: 05/13/19 11:32:00 EST Start Date: 05/13/19 Status: Ordered Mental Status 03/21/23 Barriers to Learning one year None evide nt Mandatory Health Literacy Documentation Yes Health Literacy Communication Barriers N ever Primary Language Emirati Problem List Condition Confirmation Course Effective Dates Status Health Status Informant Status post total replacement of left hip Confirmed Active Status post total left knee replacement Confirmed Active HTN (hypertension) Confirmed Active Knee pain 1 Confirmed Active LBP (low back pain) Confirmed Active Osteoarthritis of left hip Confirmed Active Osteoarthritis of left knee Confirmed Active Osteoarthritis of right hip Confirmed Active Preop examination Confirmed Active Spondylolisthesis Confirmed Active Dressing change or removal, surgical wound Confirmed Active Visit for wound check Confirmed Active 1left Diagnosis Diagnosis Type Effective Dates Health Status Clinical Service Informant Osteoarthritis of right knee Discharge Diagnosis 03/21/23 Preop examination Discharge Diagnosis 03/21/23 Procedures Procedure Date Related Diagnosis Body Site Status Wrist surgery, left 1997 Compl eted Ectopic 1980 Complet ed Tonsillectomy 1970 Completed Vital Signs Most recent to oldest [Reference Range]: 1 Height 153.0 cm (03/21/23 11:08 AM) Patient Weight 77.0 kg (03/21/23 11:08 AM) Body Mass Index 32.89 kg/m2 (03/21/23 11:08 AM) Temperature [36.5-37.9 DegC] 36.1 DegC *LOW* (03/21/23 11:08 AM) Respiratory Rate 20 br/min (03/21/23 11:08 AM) Blood Pressure 132/80mmHg (03/21/23 11:08 AM) Cuff Pulse Pressure 52 mmHg (03/21/23 11:08 AM) Social History Social History Type Response Smoking Status Never smoked cigaret ivis Sex Female Pre-OP H & P * RONI Clay, Pal: PERFORM Event Display: Pre-OP H & P Authored Date: [id number] PRE-OPERATIVE HISTORY AND PHYSICAL Name: SAMARIA DE [place] Patient Number: [id number] : 1945 Date of Service: 03/21/2023 PRE-OP Diagnosis: Right knee osteoarthritis Planned Procedure: Right total knee arthroplasty Chief Complaint: Right knee pain with gait disturbance History of Present Illness (including history relevant to procedure): This 77-year-old female presents to the clinic today for preoperative history and physical. Patient has had both of her hips and her left knee replaced by Dr. Interiano in the past. She states that over the past year she has noticed that her gait is off due to the pain she experiences in her right knee, localized mostly over the lateral aspect. She has visible malalignment and had recently been evaluated by Dr. Concepcion for lower back pain he does not feel that surgical intervention is warranted for her spinal stenosis. Patient states that she also experiences weakness in both lower extremities and has trouble going up or down inclines. At this point she is electing to proceed with surgical intervention for her right kneearthritis. Review Of Systems: A 12 point review of systems is performed is unremarkable except for those things stated in the HPI and past medical history. Past Medical History: Problems: Status post total left knee replacement Visit for wound check Osteoarthritis of left knee Dressing change or removal, surgical wound Osteoarthritis of right hip Status post total replacement of left hip Osteoarthritis of left hip Preop examination LBP (low back pain) Knee pain HTN (hypertension) Spondylolisthesis Hypercholesterolemia Obesity History of breast cancer with radiation treatment Procedure History Procedure Procedure Date Comments Wrist surgery, left 1998 Ectopic 1981 Tonsillectomy Right total hip arthroplasty Left total hip arthroplasty Left total knee arthroplasty Breast mastectomy 1970 Allergies and Sensitivities: diclofenac(n/a) Nickel(rash) ibuprofen(Hives) Cipro(Hives) Current Home Meds: (Last Updated 03/21 11:07) acetaminophen amoxicillin (amoxicillin 500 mg oral capsule) 2,000 mg PO As indicated one hour before dental and other procedures as directed aspirin (Aspir 81) calcium citrate (calcium (as calcium citrate) 250 mg oral tablet) cephalexin (cephalexin 500 mg oral capsule) 500 mg PO tid cinnamon clindamycin topical (clindamycin 1% topical swab) gabapentin (gabapentin 300 mg oral capsule) hydroCHLOROthiazide-lisinopril (hydroCHLOROthiazide-lisinopril 12.5 mg-20 mg oral tablet) lisinopril PO Daily multivitamin omega-3 polyunsaturated fatty acids (Fish Oil oral capsule) taMOXIfen (tamoxifen 20 mg oral tablet) turmeric Vitals: Last Updated 03/21/23 11:08 Weights: Last Updated 03/21/23 11:08 Date Temp Pulse BP RR SpO2 FIO2 Date Wt(kg) Wt(lb) 03/21 11:08 36.1 132/80 20 96 03/21 11:08 77.0 169 03/21 11:08 77.0 169 24 Hr Tmax: 36.1 at 03/21 11:08 Initial Wt: 03/21 77.0 kg 169 lb Physical Exam: (relevant to the procedure, including heart and lung evaluation) General: Alert and oriented x 3 with proper grooming and hygiene Eyes: Pupils are equal reactive to light with accommodation. Extraocular movements are intact Throat: Posterior oropharynx clear with absence of edema, erythema or exudate. Dentition is appropriate Cardiac: Regular rate and rhythm with no murmurs or gallops appreciated Lungs: Clear to auscultation throughout with no wheezing, rales or rhonchi Abdomen: Obese, nondistended, nontender with NABS Extremities: Right knee; range of motion is from 0 degrees of extension to about 118 degrees of flexion. Patient experiences some slight lateral joint line tenderness when knee is palpated in flexed position. She has visible valgus malalignment. There is no laxity with varus or valgus stressing. Her patella is not mobile due to arthritic change within the patellofemoral joint. AP drawer sign and Carmelo test were negative. Patient is neurovascularly intact in the right lower extremity but does walk with an antalgic gait. Neuro: Cranial nerves II through XII are intact with no motor or sensory deficit Skin: Normal in appearance with no open skin areas or discharge Studies (relevant to the procedure): 3 views of the of thee right knee which shows bone on bone arthritis in the lateral compartment and valgus malalignment. Plan: Patient is scheduled to undergo this procedure at the [facility] with Dr. Interiano on April. Risks and complications of the procedure such as: Infection, bleeding, pain, scarring, nerve blood vessel damage, weakness, wound problems, stiffness, incomplete relief of symptoms, hardware failure, hardware loosening, wear, fracture, tendon or ligament injury, blood clots, embolism, cardiac, stroke and were explained to the patient at her visit today and informed consent for the procedure was obtained. Patient also understands risks of proceeding with surgical intervention during the COVID-19 pandemic. Currently she is asymptomatic and states that she has not been in contact with anyone positive for the virus recently. We have obtained preoperative medical clearance from the patient's primary care provider Dr. Silver. Patient is scheduled to meet with anesthesia at the hospital today at noon. While there she will obtain a CBC with differential, complete metabolic panel, PT/INR, urinalysis, urine culture and sensitivity, EKG and a nasal culture for MRSA. During today's visit we reviewed the total knee packet. I provided the patient with paperwork to obtain obtaining a handicap placard for her vehicle. I provided her with information about lectures offered by [facility] in regards to joint replacement surgery. Has a walker from her previous joint replacement surgery that she will bring with her on the day of her procedure. She also has a raised toilet seat and a shower bench in her home. We discussed discharge planning from the hospital. Patient states she will most likely do in-home physical therapy for the first 2 weeks before transitioning to outpatient physical therapy at [facility]. I advised the patient that she will be provided with a prescription for narcotic pain medication for postoperative pain control. We will have her on aspirin twice daily for the first 30 days postoperatively for blood clot prevention. Patient verbalized understanding of all information provided during today's visit. She thanked us for the care that she received. If she has questions or concerns should arise prior to her surgery, she will contact the clinic. She will have her 2-week postoperative follow-up with myself on April 25. This chart was completed utilizing [employer] voice recognition software. Grammatical errors,random word insertions, pronoun errors, and in complete sentences are an occasional consequence of the system. Any questions or concerns about the content, text, or information contained within the body of this dictation should be addressed directly to the physician for clarification. Electronic Signature on File CC: Arsh Silver MD [address] [id number] * Electronically Reviewed/Signed by: Pal Clay PA-C Author Signature Dt/Tm:03/21/2023 03:41 PM Division of Sports Medicine Electronically Reviewed/Signed by: Arsh Interiano MD Cosigner Signature Dt/Tm: 03/22/2023 01:30PM Division of Sports Medicine [place] Patient Care team information Care Team Personnel Name: MD Ishaan, Jairo Pearson Position: Physician - Sports Medicine [place] Member Role: Lifetime Relationship Address: Address: [address] [place] [id number] Name: MD Silver Paul R Position: Referring DIRECT Member Role: Primary Care Provider Address: Address: [address] [address] [place] Care Team Related Persons Name: ANTON DE OLIVEIRA Address: home [address] [place] [phone] Name: MASTER DE OLIVEIRA Address: [address] [id number]
[2023-04-12] MEDS ORDERED: ePHEDrine sulfate 50 MG/5 ML SYR ONE (12:51)
[2023-04-12] MEDS ORDERED: METOCLOPRAMIDE HCL INJ 5 MG/ML 2 ML VIAL IV PRN (13:40)
[2023-04-12] MEDS ORDERED: NALOXONE HCL 0.4 MG/1 ML VIAL/CARP IV PRN (13:40)
[2023-04-12] MEDS ORDERED: diphenhydrAMINE 50 MG/ML VIAL IV PRN (13:40)
[2023-04-12] MEDS ORDERED: bisacodyL 10 MG SUPP PR PRN (13:40)
[2023-04-12] MEDS ORDERED: MAGNESIUM HYDROXIDE SUSP 30 ML UDC PO PRN (13:40)
[2023-04-12] MEDS ORDERED: oxyCODONE HCL IR 5 MG TAB (IMMEDIATE RELEASE) PO PRN (13:40)
[2023-04-12] MEDS ORDERED: ALUMINUM/MAGNESIUM SUSP 30 ML UDC PO PRN (13:40)
[2023-04-12] MEDS ORDERED: HYDROmorphone INJ 0.5 MG/0.5 ML SYR IV PRN (13:40)
--- NOTE | 2023-04-12 13:40 | Operative Report ---
Post Operative Report Pre & Post Diagnosis Operation Date: 04/12/23 10:40 Pre-Op Diagnosis: Osteoarthritis Knee Right Post-Op Diagnosis: Osteoarthritis Knee Right I identified the patient and participated in the time-out.: Yes Procedure Operation Date: 04/12/23 10:40 Actual Procedures p Right Total Knee Arthroplasty(Right) - Arsh Interiano MD Surgeon Arsh Interiano MD Nuclear Reactor Technician Francesca Clay PA-Mac Estimated Blood Loss 100 Findings Consistent with Post-Op Diagnosis Specimens Right knee bone and soft tissue Description of Procedure I was present during the entire case assisting with positioning, prepping, draping, wound retraction, wound closure, Prevena and dressing application. No fellow present. Please see Dr. Interiano procedure note for specifics of the case. I attest to the content of the Intraoperative Record and any orders documented therein. Any exceptions are noted below.
--- NOTE | 2023-04-12 14:24 | XRay Report ---
RIGHT KNEE 2 VIEWS History: Right total knee arthroplasty. Degenerative arthritis. Postop. FINDINGS: The patient is status post a right total knee arthroplasty. The hardware is intact. No frac ture or dislocation. There are 2 screws at the lateral femoral condyle. IMPRESSION: Right total knee arthroplasty. No evidence for hardware complication. ACT 112: Negative or not required by law. Electronically signed by: Zoran Casper M.D. 04/12/2023 2:23 PM
--- NOTE | 2023-04-12 14:30 | Operative Report ---
Post Operative Report Pre & Post Diagnosis Operation Date: 04/12/23 10:40 Pre-Op Diagnosis: Osteoarthritis Knee Right Post-Op Diagnosis: Osteoarthritis Knee Right, right Lateral femoral condyle fracture I identified the patient and participated in the time-out.: Yes Procedure Operation Date: 04/12/23 10:40 Actual Procedures 1. Right Total Knee Arthroplasty 2. Open reduction internal fixation right lateral femoral condyle fracture - Arsh Interiano MD Surgeon Arsh Interiano MD Family Health Nurse Practitioner Francesca Clay PA-C Estimated Blood Loss 100 Findings Consistent with Post-Op Diagnosis Specimens right knee bone and soft tissue contents Anesthesia Type Spinal MAC Complications intraoperative fracture of the lateral femoral condyle. This was treated with open reduction internal fixation. Fracture was noted to be stable intraoperatively after fixation. Fluoroscopy images demonstrated hardware in g ood position and excellent reduction. Postoperatively we will treat her with touchdown weightbearing with a walker on the right lower extremity for 6 weeks. Disposition Disposition: Recovery Room Indications 77-year-old female with right knee osteoarthritis refractory to conservative management. X-rays and clinical exam demonstrate valgus malalignment. She has [id number] arthritis in the lateral compartment of the knee. Tricompartmental osteophytes. I have previously done a left total knee replacement on her with a good result. 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 She would like to proceed with the same surgery on the right side. I had a long discussion with her about the risks and benefits of surgery, alternatives to surgery, and expected outcomes. After reviewing all these she elected to proceed with surgery. All questions were answered. Informed consent was signed. Description of Procedure Patient was identified in the preoperative holding area where her surgical site was marked. She was given an adductor canal block as then a spinal anesthetic then brought back to the operating room where she was placed on the operating room table and all bony promises were padded. Perioperative antibiotics and 1 g of IV tranexamic acid were administered. Exam under anesthesia was performed demonstrating range of motion 0 to 120 degrees and valgus malalignment. Stable to varus and valgus at 30 degrees. She was then prepped and draped in usual sterile fashion. Prior to incision a multidisciplinary timeout was called. All in the room were in agreement. I began by exsanguinating the limb with an Esmarch bandage. Tourniquet was inflated to 250 mmHg. Total tourniquet time for the case was 78 minutes. A 16 cm long incision was made for an anterior approach to the knee. I dissected down to subcutaneous tissues to level the fascia. Medial parapatellar arthrotomy was performed. Half the fat pad was excised. Synovitis in the suprapatellar pouch was removed with electrocautery. Patella was then everted and held with 2 towel clips. Thickness of the patella was measured. This was approximately 22 mm. Patellar resection was made. She now measured 14 mm. A 29 mm diameter oval [employer] patellar sizing trial was placed and had excellent coverage. 3 drill holes were placed. The trial patellar button was then placed. Thickness of the patella was remeasured and was now 23 mm which I was happy with. Next the knee was flexed up and the patella was everted. Blunt retractors were placed to protect the collateral ligaments. Osteotome was used to remove osteophytes from the intercondylar notch. Unfortunately, while using the osteotome on the lateral femoral condyle the lateral femoral condyle fractured. I inspected the fracture. It exited just above the lateral epicondyle. The anterior aspect of the femur including the location of the chamfer cuts was intact. Therefore we called for the Synthes small fragment tray. I placed 2 pins across the fracture to hold it in a an anatomically reduced position. I then prepared the femur as would normally take place. Cruciate and ligaments were resected. Intramedullary drill guide was placed. 5 degree cutting block was placed and 11 mm resection was undertaken off the distal femur. Patient was sized to a size 3 femur which was the same as her other side. External rotation of the sizing guide was adjusted so that it would match the epicondylar axis which was at approximately 5 degrees of external rotation relative to the posterior condyles. Pins were then placed for our guide holes. The 5 in 1 cutting guide was then attached to the femur. Our 5 cuts were then made without difficulty. Cutting guide was removed and the bony fragments were removed. The fracture remained stable. At this point the tibia was subluxated forward. Lateral meniscus was excised. We made our proximal tibial resection using a cutting guide to resect approximately 9 mm off to the less involved compartment, while protecting the posterior neurovascular structures with a blunt Hohmann. Once this was complete the knee was brought into full extension and the lamina bed placement coordinator was placed. Remnants of the medial meniscus were removed. 9 mm spacer was then placed in both flexion and extension and we had a nice rectangular gap with full extension of the knee which I was happy with. Tibia was then prepared for a size 3 tibia. Trial metal blaze plate was attached. We then turned our attention back to the femur. At this point, the box cutting guide was attached to the femur and the box cut was made. Femoral trial was then placed. With her femoral trial in place we were then ready to fixate the lateral condyle fracture. A third pin was placed across the lateral from all condyle fracture angling proximally and anteriorly so as to give us her maximum length for fixation as well as avoid the box. One of the pins was then removed and I took my measurement for the first screw. This was over 60 mm. The longest screw we had the set was 60 mm. Therefore used a 60 mm cancellous screw for for screw plate. Good 2 finger tightness was achieved. I then measured for my second screw. This came to 60 mm and I was able to hook the far cortex. A washer was attached to this screw which was a cortical screw. This had an excellent bite and nicely compressed the fracture. The third pin was then removed. Excellent fixation was obtained. At this point the tibia was subluxated forward and a 9 mm thickness tibial polyethylene trial was placed. The knee was brought through full range of motion. There is excellent stability to varus and valgus stress throughout. Range of motion was 0 to 130 degrees. I was happy with her alignment. Therefore, the trial components were removed. Bony surfaces were irrigated out with copious amounts normal saline. The periarticular injection cocktail was placed with a total of 20 cc around the medial and lateral aspects of the tibia. Another 10 cc placed in the periosteum. Cement was then mixed on the back table. Femoral component was cemented on first. Excess cement was removed. Femoral component was protected with a clean lap sponge and the tibia was subluxated forward. We then cemented the tibial component into place. Excess cement was again removed. The knee was brought into full extension while the cement cured. Patellar component was cemented into place and held with a clamp. Again excess cement was removed. At this point the wound was allowed to soak in dilute Betadine solution. Fluoroscopy was brought in and AP and lateral fluoroscopic images demonstrated hardware to be in good position and with an excellent reduction of the fracture. We then began to close. Tourniquet was let down at 78 minutes and meticulous hemostasis was ensured. The arthrotomy was closed with interrupted 0 Vicryl sutures for the retinaculum and a running #1 Vicryl sutures for the quad and patellar tendon. 0 Vicryl sut ures were used to in the subcutaneous tissues proximally. 2-0 Vicryl sutures were used in the deep dermis. Zipline and Dermabond were used for the skin. A Prevena wound VAC was placed over the incision. Boy wrap was placed for compression. Patient was then awoke from anesthesia and transferred recovery room in stable condition. Postoperative course: Patient be admitted overnight for pain control and monitoring. She will be touchdown weightbearing on the right lower extremity with a walker for the next 6 weeks. Hardcopy x-rays to be done in the PACU. I attest to the content of the Intraoperative Record and any orders documented therein. Any exceptions are noted below.
--- NOTE | 2023-04-12 14:30 | Fluoroscopy Report ---
INTRAOPERATIVE RADIOGRAPHS CLINICAL HISTORY: Right knee arthroplasty. Fluoro time: 3 second Ka,r: 0.23 mGy FINDINGS: 2 spot fluoroscopic views of the right knee are correlated with radiographs dated 3. A right knee arthroplasty is in near anatomic alignment. There has been undersurface remodeling of the patella. 2 cortical lag screws transfix the lateral femoral condyle. Overlying soft tissue edema is noted. IMPRESSION: Intraoperative images from a right knee arthroplasty procedure as above. Electronically signed by: Elton Dudley M.D. 04/12/2023 2:28 PM
--- NOTE | 2023-04-12 14:38 | Anesthesiology Progress Note ---
Date of Service April 12, 2023 Anesthesia Post Procedure Vital Signs Vital Signs: Temp Pulse Resp BP Pulse Ox O2 Del Method O2 Flow Rate 04/12/23 14:20 80 18 139/61 94 Room Air 04/12/23 14:10 86 20 146/73 H 96 Room Air 04/12/23 14:00 60 18 140/65 100 Room Air 04/12/23 13:50 82 20 129/83 100 Oxymask 3 04/12/23 13:42 36.0 C L 90 16 113/77 100 Oxymask 6 04/12/23 09:46 36.4 C L 81 18 154/97 H 96 Room Air Transfer of Care Handoff Completed per policy Notes Mental Status: alert / awake / arousable Patient Amnestic to Procedure: Yes Nausea / Vomiting: adequately controlled Pain: adequately controlled Airway Patency, RR, SpO2: stable & adequate BP & HR: stable & adequate Hydration State: stable & adequate Neuraxial Anesthesia: was administered and sensory block is resolving Anesthetic Complications: no major complications apparent
[2023-04-12] MEDS ORDERED: SODIUM CHLORIDE 0.9% 1,000 ML IV SCH (15:15)
[2023-04-12] MEDS: ACETAMINOPHEN 500 MG TAB PO SCH ×2 (15:29→22:00)
[2023-04-12] MEDS: Scopolamine CHECK PATCH PLACEMENT SCH ×2 (15:30→23:21)
[2023-04-12] MEDS: ceFAZolin 2000MG 2,000 MG/15 ML SYR IV SCH (17:44)
[2023-04-12] MEDS ORDERED: TRANEXAMIC ACID / 0.7% NACL 1,000 MG/100 ML BAG IV SCH (19:00)
[2023-04-12] MEDS: CeleBREX 200 MG CAP PO SCH (20:16)
[2023-04-12] MEDS: DOCUSATE SODIUM 100 MG CAP PO SCH (20:16)
[2023-04-12] MEDS: CALCIUM 600MG + VIT D 400 IU TAB PO SCH (20:17)
[2023-04-12] MEDS: ASPIRIN 81 MG ECTAB PO SCH (20:17)
[2023-04-12] MEDS ORDERED: SENNA 8.6 MG TAB PO SCH (21:00)
[2023-04-12] MEDS ORDERED: ASPIRIN 81 MG ECTAB PO SCH (21:00)
[2023-04-12] MEDS ORDERED: TOCOPHERYL, DL-ALPHA 400 UNITS 180 MG CAP PO SCH (21:00)
[2023-04-13] MEDS: ceFAZolin 2000MG 2,000 MG/15 ML SYR IV SCH (04:10)
[2023-04-13] MEDS: ACETAMINOPHEN 500 MG TAB PO SCH (05:27)
[2023-04-13 06:36] LABS: Hematocrit (blood only) 31.2 % (37.0-47.0); Hemoglobin 10.3 g/dl (12.0-16.0); Mean Corpuscular Hemoglobin 31.9 pg (25.0-34.0); Mean Corpuscular Volume 96.6 fL (80.0-100.0); Mean Platelet Volume 9.3 fL (9.4-12.4); Platelet Count 225 K/uL (130-400); RDW Coefficient of Variation 12.9 % (11.5-14.5); RDW Standard Deviation 45.8 fL (36.4-46.3); Red Blood Count 3.23 M/uL (4.20-5.40); White Blood Count 11.85 K/ul (4.8-10.8)
[2023-04-13 07:19] LABS: Calcium 8.4 mg/dl (8.6-10.3); Potassium 4.6 mmol/L (3.5-5.1)
[2023-04-13 07:22] VITALS: BP 105/65; PULSE 59; RESP 16; TEMP 98.6; O2SAT 95
[2023-04-13 07:25] LABS: BUN Creatinine Ratio 26.8 (10-20); Creatinine Clr Calc Pharmacy 45.1 ml/min; Est GFR (African American) 65.8 ml/min; Est GFR (Non-African American) 56.7 ml/min
[2023-04-13] MEDS ORDERED: dexAMETHasone 4 MG TAB PO SCH (08:00)
[2023-04-13] MEDS: DOCUSATE SODIUM 100 MG CAP PO SCH (08:38)
[2023-04-13] MEDS: CALCIUM 600MG + VIT D 400 IU TAB PO SCH (08:39)
[2023-04-13] MEDS: CeleBREX 200 MG CAP PO SCH (08:39)
[2023-04-13] MEDS: ASPIRIN 81 MG ECTAB PO SCH (08:40)
[2023-04-13] MEDS ORDERED: TAMOXIFEN CITRATE 10 MG TABLET PO SCH (09:00)
[2023-04-13] MEDS ORDERED: MULTIVITAMIN TAB PO SCH (09:00)
[2023-04-13] MEDS ORDERED: GABAPENTIN 300 MG CAP PO SCH (09:00)
[2023-04-13] MEDS ORDERED: LISINOPRIL/HCTZ 20/12.5MG 1 TAB TAB PO SCH (09:00)
[2023-04-13] MEDS ORDERED: NON-FORMULARY MEDICATION (Turmeric Root Extract 500 mg Capsule) PO SCH (09:00)
[2023-04-13] MEDS ORDERED: NON-FORMULARY MEDICATION (Multivitamin capsule) PO SCH (09:00)
[2023-04-13] MEDS ORDERED: OMEGA-3 (PURIFIED FISH OIL) 1 GM CAP PO SCH (09:00)
--- NOTE | 2023-04-13 09:37 | Orthopedic Progress Note ---
Date of Service April 13, 2023 Assessment & Plan (1) S/P total knee arthroplasty: Plan: PT/OT Toe-touch weightbearing on the right lower extremity x 6 weeks with walker assistance Pain controlled p.o. medication DVT prophylaxis with aspirin and LOW stockings Ice with easy wrap Keep Prevena in place until follow-up in 1 week for removal Plan is to discharge home later this morning with in-home physical therapy for the first 2 weeks postoperatively Follow-up at [facility] as previously scheduled for 2-week follow- up. With questions contact our clinic at [phone] (2) Femoral condyle fracture: Admission and Anticipated Discharge Date Admission Date: April 12, 2023 Subjective This 77-year-old female is day 1 status post right total knee arthroplasty with open reduction internal fixation of right lateral femoral condyle fracture. Patient is in great spirits this morning. She understands the complications th at occurred during her surgery. She is currently working with physical therapy and is doing very well navigating with only touchdown weightbearing on the right lower extremity. Patient states her pain is well-controlled with p.o. pain medication she was given. She hopes to be discharged home later this morning. She is set up for in-home physical therapy for the first 2 weeks postoperatively. Currently she denies chest pain, shortness of breath, fever, chills, sweats, numbness or tingling in her right lower extremity. She states she does have some pain over the lateral aspect of the knee with associated bruising. But overall she is pleased with results. Review of Systems Review of Systems: All systems reviewed & are unremarkable except as noted in Subjective Physical Exam Physical Exam: Right knee: Outer dressing was removed. Prevena is functioning properly with no drainage noted in the canister. Patient does have edema over the anterior aspect of the knee as well as some ecchymosis over the lateral aspect near the site of the fracture. She is able to perform active straight leg raise test. She is able to actively dorsi and plantarflex her foot without issue. Her quad strength is 4 out of 5. Knee range of motion is from 0 degrees of extension to 90 degrees of flexion without significant discomfort. She is able to detect light sensation to touch over the pads of all digits. She is neurovascularly intact in the right lower extremity. Results & Data Vital Signs (Past 12 Hours) Vital Signs Temp Pulse Resp BP Pulse Ox O2 Del Method 04/13/23 07:21 37.0 C 59 L 16 105/65 95 Room Air 04/13/23 01:52 36.6 C 76 20 104/52 L 96 Room Air 04/13/23 00:11 36.6 C 55 L 16 102/53 L 95 Room Air Diagnostic Findings Laboratory Results WBC 11.85 K/ul (4.8-10.8) H 04/13/23 05:44 RBC 3.23 M/uL (4.20-5.40) L 04/13/23 05:44 Hgb 10.3 g/dl (12.0-16.0) L 04/13/23 05:44 Hct 31.2 % (37.0-47.0) L 04/13/23 05:44 MCV 96.6 fL (80.0-100.0) 04/13/23 05:44 MCH 31.9 pg (25.0-34.0) 04/13/23 05:44 MCHC 33.0 g/dL (32.0-36.0) 04/13/23 05:44 RDW Std Deviation 45.8 fL (36.4-46.3) 04/13/23 05:44 RDW Coeff of Vincent 12.9 % (11.5-14.5) 04/13/23 05:44 Plt Count 225 K/uL (130-400) 04/13/23 05:44 MPV 9.3 fL (9.4-12.4) L 04/13/23 05:44 Sodium 138 mmol/L (136-145) 04/13/23 05:44 Potassium 4.6 mmol/L (3.5-5.1) 04/13/23 05:44 Chloride 105 mmol/L (98-107) 04/13/23 05:44 Carbon Dioxide 27 mmol/L (21-32) 04/13/23 05:44 Anion Gap 6 (3-11) 04/13/23 05:44 BUN 26 mg/dl (6-23) H 04/13/23 05:44 Creatinine 0.97 mg/dl (0.6-1.2) 04/13/23 05:44 Est Cr Clr Drug Dosing 45.1 ml/min 04/13/23 05:44 Est GFR ( Amer) 65.8 ml/min 04/13/23 05:44 Est GFR (Non-Af Amer) 56.7 ml/min 04/13/23 05:44 BUN/Creatinine Ratio 26.8 (10-20) H 04/13/23 05:44 Glucose 106 mg/dl (70-99(Fasting)) H 04/13/23 05:44 Calcium 8.4 mg/dl (8.6-10.3) L 04/13/23 05:44 Impressions Knee X-Ray 04/12/23 13:40 RIGHT KNEE 2 VIEWS History: Right total knee arthroplasty. Degenerative arthritis. Postop. FINDINGS: The patient is status post a right total knee arthroplasty. The hardware is intact. No fracture or dislocation. There are 2 screws at the lateral femoral condyle. IMPRESSION: Right total knee arthroplasty. No evidence for hardware complication. ACT 112: Negative or not required by law. Electronically signed by: Zoran Casper M.D. 04/12/2023 2:23 PM
--- NOTE | 2023-04-13 09:39 | Discharge Summary ---
Date of Service April 13, 2023 Admission HPI Per Admitting Provider History of Present Illness (including history relevant to procedure): This 77-year-old female presents to the clinic today for preoperative history and physical. Patient has had both of her hips and her left knee replaced by Dr. Interiano in the past. She states that over the past year she has noticed that her gait is off due to the pain she experiences in her right knee, localized mostly over the lateral aspect. She has visible malalignment and had recently been evaluated by Dr. Concepcion for lower back pain he does not feel that surgical intervention is warranted for her spinal stenosis. Patient states that she also experiences weakness in both lower extremities and has trouble going up or down inclines. At this point she is electing to proceed with surgical intervention for her right knee arthritis. Review Of Systems: A 12 point review of systems is performed is unremarkable except for those things stated in the HPI and past medical history. Past Medical History: Problems: Status post total left knee replacement Visit for wound check Osteoarthritis of left knee Dressing change or removal, surgical wound Osteoarthritis of right hip Status post total replacement of left hip Osteoarthritis of left hip Preop examination LBP (low back pain) Knee pain HTN (hypertension) Spondylolisthesis Hypercholesterolemia Obesity History of breast cancer with radiation treatment Procedure History Procedure Procedure Date Comments Wrist surgery, left 1998 Ectopic 1980 Tonsillectomy Right total hip arthroplasty Left total hip arthroplasty Left total knee arthroplasty Breast mastectomy 1969 Allergies and Sensitivities: diclofenac(n/a) Nickel(rash) ibuprofen(Hives) Cipro(Hives) Current Home Meds: (Last Updated 03/21 11:07) acetaminophen amoxicillin (amoxicillin 500 mg oral capsule) 2,000 mg PO As indicated one hour before dental and other procedures as directed aspirin (Aspir 81) calcium citrate (calcium (as calcium citrate) 250 mg oral tablet) cephalexin (cephalexin 500 mg oral capsule) 500 mg PO tid cinnamon clindamycin topical (clindamycin 1% topical swab) gabapentin (gabapentin 300 mg oral capsule) hydroCHLOROthiazide-lisinopril (hydroCHLOROthiazide-lisinopril 12.5 mg-20 mg oral tablet) lisinopril PO Daily multivitamin omega-3 polyunsaturated fatty acids (Fish Oil oral capsule) taMOXIfen (tamoxifen 20 mg oral tablet) turmeric Initial Wt: 03/21 77.0 kg 169 lb Admission Exam Per Admitting Provider Physical Exam: (relevant to the procedure, including heart and lung evaluation) General: Alert and oriented x 3 with proper grooming and hygiene Eyes: Pupils are equal reactive to light with accommodation. Extraocular movements are intact Throat: Posterior oropharynx clear with absence of edema, erythema or exudate. Dentition is appropriate Cardiac: Regular rate and rhythm with no murmurs or gallops appreciated Lungs: Clear to auscultation throughout with no wheezing, rales or rhonchi Abdomen: Obese, nondistended, nontender with NABS Extremities: Right knee; range of motion is from 0 degrees of extension to about 118 degrees of flexion. Patient experiences some slight lateral joint line tenderness when knee is palpated in flexed position. She has visible valgus malalignment. There is no laxity with varus or valgus stressing. Her patella is not mobile due to arthritic change within the patellofemoral joint. AP drawer sign and Carmelo test were negative. Patient is neurovascularly intact in the right lower extremity but does walk with an antalgic gait. Neuro: Cranial nerves II through XII are intact with no motor or sensory deficit Skin: Normal in appearance with no open skin areas or discharge Principal Diagnosis Right knee osteoarthritis Discharge Exam Right knee: Outer dressing was removed. Prevena is functioning properly with no drainage noted in the canister. Patient does have edema over the anterior aspect of the knee as well as some ecchymosis over the lateral aspect near the site of the fracture. She is able to perform active straight leg raise test. She is able to actively dorsi and plantarflex her foot without issue. Her quad strength is 4 out of 5. Knee range of motion is from 0 degrees of extension to 90 degrees of flexion without significant discomfort. She is able to detect light sensation to touch over the pads of all digits. She is neurovascularly intact in the right lower extremity. Discharge Data Allergies Allergy/AdvReac Type Severity Reaction Status Date / Time ciprofloxacin [From Cipro] Allergy Intermediate hives Verified 04/12/23 09:42 ibuprofen Allergy Intermediate rash Verified 04/12/23 09:42 nickel Allergy Mild itching, Verified 04/12/23 09:42 rash diclofenac Allergy Unknown rash Verified 04/12/23 09:42 Procedures Performed Operation Date: 04/12/23 10:40 Actual Procedures p Right Total Knee Arthroplasty(Right) - Arsh Interiano MD Ordered Studies 04/12/23 FL knee RT 1 or 2V Routine 04/12/23 05:00 US - OR guided needle placemen Routine Hospital Course (1) S/P total knee arthroplasty: Patient had complication during her surgery in which a fracture occurred to her right lateral femoral condyle. This was fixated with 2 cancellous screws after performing the total knee arthroplasty. Patient is doing very well this morning. She understands that she will be touchdown weightbearing on the right lower extremity for the next 6 weeks. She is set up for in-home physical therapy for the first 2 weeks. She hopes to be discharged home later this morning. PT/OT Toe-touch weightbearing on the right lower extremity x 6 weeks with walker assistance Pain controlled p.o. medication DVT prophylaxis with aspirin and LOW stockings Ice with easy wrap Keep Prevena in place until follow-up in 1 week for removal Plan is to discharge home later this morning with in-home physical therapy for the first 2 weeks postoperatively Follow-up at [facility] orthopedics as previously scheduled for 2-week follow- up. With questions contact our clinic at [phone] (2) Femoral condyle fracture: Total Time Total Time Spent Total Time Spent (In Minutes): 25 mins Discharge Plan Discharge Items Patient Disposition: Home - Home Health Services Reason For Visit: Osteoarthritis Knee Right Discharge Diagnosis: Right knee osteoarthritis; Lateral femoral condyle fracture Activity: As commented below Lifting: None Bathing: Keep incision dry Bathing Comment: May shower tomorrow Sexual Activity: Wait until after follow-up appointment Exercise/Sports: Wait until after follow-up appointment Weightbearing: Right toe touch Weightbearing Comment: weightbearing with walker x 6 weeks Non-emergency contact: Surgeon Call non-emergency contact if: you have any medication questions, your pain is not controlled, your temperature is above 101.5, your wound has increased drainage and your wound pain has increased Follow-up/Referrals: Arsh Silver MD [Primary Care Provider] - Diet: Regular Ambulatory Orders: Urine rflx Micros+Cult if Ind (Routine) Timeframe: 1 Day Location: Determined by Patient Ordered By: Pooja Bermeo Attending Provider Instructions: Post-operative Instructions Dear Patient and Family/Friends, Before you are discharged from the hospital, it is important to know what to expect when you get home after surgery. To that end, we have created this sheet of discharge instructions which covers many commonly asked questions. Make sure you go through this sheet in its entirety with your nurse before you are discharged. Please note that we will go over the specifics of your surgery and recovery when you return for your first post-operative visit. Sincerely, Dr. Interiano Pain Expect to be in a fair amount of pain after surgery. Remember, our goal is not to eliminate your pain, but to make it tolerable. It is a good idea to stay ahead of your pain by taking the medications you were prescribed once you get home. Typically, the pain starts improving 3-7 days after surgery. You should start weaning off the narcotic pain medication (oxycodone, hydrocodone, hydromorphone, morphine) as soon as your pain improves. Please call our office if your pain is not adequately controlled. Ice Ice your operative site at least 5 times a day for 15-30 minutes at a time. Make sure you have a thin cloth between the ice or cooling unit and your skin to prevent henning bite. This is especially important if you received a nerve block. Continue icing your operative site for the first 5-7 days after surgery, then as needed. Diet/Nausea/Vomiting Start by drinking clear liquids and eating crackers. If you can tolerate this, then you may resume your normal diet. If you feel nauseated or vomit, take Zof ran/ondansetron (if prescribed). Please call our office if you have intractable nausea or vomiting, or, if after hours, you may go to the Emergency Room for help. Constipation Constipation is a common side effect of narcotic pain medication. If you have not had a bowel movement within 2 days after surgery, we recommend purchasing an over the counter laxative such as Milk of Magnesia, Dulcolax, or Miralax from a local pharmacy, and taking it as instructed. Call our clinic if any questions. Nerve block The anesthesia team sometimes places a nerve block to help with post-operative pain control. This results in significant numbness and inability to move the extremity. The nerve block usually wears off in 8-12 hours, but sometimes can last up to 24 hours. Please call our office if you are still unable to move your extremity after 24 hours, unless you received a pain pump to take home. Nerve blocks typically wear off quickly, so start taking pain medication as soon as you start feeling soreness near your surgical site. Weight bearing and Range of Motion. Do not bear any weight through your operative extremity immediately after surgery. If you had upper extremity surgery, do not lift anything with that arm. If you are in a knee brace, keep it locked in place until your follow-up. We will discuss your weight bearing, range of motion, and lifting restrictions in detail at your first post-operative appointment. Continuous Passive Motion (CPM) Machine If you were prescribed a CPM machine, it will start after your first post- operative appointment, at which time we will give you instructions on the range of motion settings and duration of treatment Physical therapy You will be given a prescription for physical therapy or occupational therapy at your first post-operative appointment. Typically, patients start therapy within 1 week of surgery Wound care and showering We will inspect your wound at your first post-operative visit, and may do a dressing change at that time. Most patients will be in a water-proof dressing that is removed 14 days after surgery. It is normal to see some dried blood on the dressing. Do not remove your dressing, paper strips or sutures yourself unless you are given permission. Showering is allowed the day after surgery. Do not scrub or remove any dressings. The wound should not be submerged underwater (i.e. in a bathtub or pool) until 4 weeks after surgery LOW stockings If you were given white stockings, these are to be worn at all times except to shower (on both legs) for the first 2 weeks after surgery. Driving You may not drive while taking narcotic pain medication or while in a cast, splint, sling or brace. You, the patient, need to make the final determination about when you are safe to drive, however, the earliest you may consider driving after surgery is below: Hand/Wrist/Elbow Surgery: 3 days Shoulder Surgery: 2 weeks Hip,/Knee/Ankle Surgery: 4 weeks Fracture repair: 6 weeks Return to Work Your return to work depends on what surgery was done and what type of work you do. Please bring any paperwork your employer needs completed to your first post-operative visit. Also, bring a description of your job duties, as this helps us to understand what risks you may face at work. Travel Avoid long distance travel (greater than 1 hour) in airplanes and cars for the first 6 weeks after surgery. If you must travel, you need to have a Doppler ultrasound done before you travel to rule out a blood clot in your legs. Follow-up You should have a follow-up appointment already scheduled 1-2 days after surgery. If not, please contact our office to make this appointment before you leave the hospital. When to call the office It is normal to have swelling and bruising in the limb that was operated on. This will improve with time. It is also normal to have fevers for the first 2 days after surgery. Reasons you should call your doctor include: Uncontrolled pain; Nausea, vomiting, or constipation that does not improve with medication; Fevers over 101.5, chills, sweats; Drainage or bleeding from the wound; Foul odor; Spreading areas of redness; Any other concerns Pending Studies at Discharge: No Stand-Alone Forms: My [facility] Medications and DC Order Prescriptions: No Action Caltrate 600-D Plus Minerals 600 mg calcium- 800 unit-50 mg tablet 1 tab PO BID cinnamon bark [Cinnamon] 500 mg capsule 1,000 mg PO QAM multivitamin capsule 1 cap PO QAM omega-3 fatty acids [Fish Oil Concentrate] 1,000 mg capsule 1,000 mg PO QAM tamoxifen 20 mg tablet 20 mg PO QAM lisinopril-hydrochlorothiazide 20-12.5 mg Tablet 1 tab PO QAM gabapentin 300 mg Capsule 300 mg PO QAM turmeric root extract 500 mg Capsule 500 mg PO QAM aspirin [Glenn Low Dose Aspirin] 81 mg tablet,delayed release (DR/EC) 81 mg PO QAM acetaminophen [Tylenol 8 Hour] 650 mg tablet extended release 650 mg PO DAILY adapalene [Differin] 0.1 % Gel 1 applic TOPICAL HS vitamin E 1,200 unit Capsule 1 cap PO HS Admission Data Admit Date/Time: 04/12/23 13:40 Attending Provider: Arsh Interiano Admit Provider: Arsh Interiano Primary Care Provider: Arsh Silver
[2023-04-13] MEDS: Scopolamine CHECK PATCH PLACEMENT SCH (12:17)
== END 2023-04-13 13:23 | disposition home health service (06) ==
LOC: ASU 09:12 → 3E 09:12